=== PATIENT | male | born 1955 | race Caucasian/White ===

== ENCOUNTER 2016-11-06 15:07 | Emergency (ER) | payer MEDICARE ==
[2016-11-06] MEDS ORDERED: HYDROcod/ACETAM 5/325 MG TABLET PO STA (15:33)
[2016-11-06] MEDS ORDERED: HYDROcod/ACETAM 5/325 MG TABLET ONE (15:45)
[2016-11-06] MEDS ORDERED: DEXAMETHASONE 10 MG/ML VIAL IM STA (17:03)
[2016-11-06] MEDS ORDERED: DEXAMETHASONE 10 MG/ML VIAL ONE (17:05)
== END 2016-11-06 17:20 | disposition home or self-care (01) ==
DX: M79.631 Pain in right forearm (principal); M25.511 Pain in right shoulder; M25.562 Pain in left knee; I10 Essential (primary) hypertension; F17.200 Nicotine dependence, unspecified, uncomplicated; M10.9 Gout, unspecified
CPT/HCPCS: 36415; 80053; 83690; 84550; 85025; 85651; 86140; 86430; 96372; 99282; 99283; A9270

== ENCOUNTER 2017-01-24 11:32 | Outpatient (CLI) | payer MEDICARE | END 2017-01-24 11:33 | disposition home or self-care (01) | DX: K21.9 Gastro-esophageal reflux disease without esophagitis (principal); Z13.220 Encounter for screening for lipoid disorders; Z13.1 Encounter for screening for diabetes mellitus; M1A.00X1 Idiopathic chronic gout, unspecified site, with tophus (tophi) ==

== ENCOUNTER 2017-03-11 10:31 | Outpatient (CLI) | payer MEDICARE ==
--- NOTE | 2017-03-11 12:41 | XRAY Report ---
THREE VIEW RIGHT INDEX FINGER: 03/11/2017 CLINICAL INDICATION: Cyst. FINDINGS: AP, lateral, and oblique views of the right index finger demonstrate osteoarthritis, more severe at the distal interphalangeal joint. Soft tissue swelling on the dorsal aspect of the distal i nterphalangeal joint is associated with bulky osteophytes. No radiopaque foreign body is seen in the soft tissues. IMPRESSION: OSTEOARTHRITIS, WITH BULKY OSTEOPHYTES AT THE DISTAL INTERPHALANGEAL JOINT, WITH ASSOCIA SOSA SOFT TISSUE SWELLING. JOB #: [id number] EXT JOB #:[id number]
== END 2017-03-11 10:32 | disposition home or self-care (01) ==
LOC: DI.S 10:31
PROVIDERS: ATTEND Nurse Practitioner Family
DX: M19.041 Primary osteoarthritis, right hand (principal); M25.741 Osteophyte, right hand
CPT/HCPCS: 73140

== ENCOUNTER 2017-04-18 17:43 | Emergency (ER) | payer MEDICARE ==
[2017-04-18 17:53] VITALS: BP 137/82
--- NOTE | 2017-04-18 18:29 | XRAY Preliminary Report ---
Exam: XR Forearm RT IMPRESSION: 1. No acute fractures are seen. 2. Cystic bone lesions again noted at the right distal radius and ulna. Wrist osteoarthritis again no mazin with cystic changes of the carpal bones again seen. 3. Tiny radiopaque densities could be focal soft tissue calcification at the dorsal proximal forearm. Radiopaque foreign bodies not excluded. [facility] SITE ID: [id number]
--- NOTE | 2017-04-18 18:32 | XRAY Report ---
EXAM: RIGHT FOREARM RADIOGRAPHY EXAM DATE: 04/18/2017 06:08 PM. CLINICAL HISTORY: Injury, pain and swelling. Fall today, forearm pain. COMPARISON: Right wrist 08/30/2016. TECHNIQUE: 2 views. FINDINGS: Limited due to suboptimal positioning. Bones: Cystic bone lesions again noted at the right distal radius and ulna. No acute fractures are se en. Joints: Wrist osteoarthritis again noted with cystic changes of the carpal bones again seen. Soft Tissues: Tiny radiopaque densities could be focal soft tissue calcification at the dorsal proxim al forearm. IMPRESSION: 1. No acute fractures are seen. 2. Cystic bone lesions again noted at the right distal radius and ulna. Wrist osteoarthritis again no mazin with cystic changes of the carpal bones again seen. 3. Tiny radiopaque densities could be focal soft tissue calcification at the dorsal proximal forearm. Radiopaque foreign bodies not excluded. MILLY Referring Provider Line: [phone] SITE ID: [id number]
--- NOTE | 2017-04-18 20:15 | ED Physician Documentation ---
PD HPI UPPER EXT INJURY - Stated complaint Stated Complaint: R ARM INJ - Chief complaint Chief Complaint: Ext Problem - History obtained from History obtained from: Patient - History of Present Illness Location: Other (Right-handed gentleman with history of gout had a trip and fall last night and injured his forearm. He complains of pain from forearm to the wrist and severe swelling of the hand and cannot range either the wrist or the elbow. No other injuries. He declines pain medication.) Review of Systems Constitutional: denies: Fever, Chills GI: denies: Abdominal Pain, Nausea, Vomiting Musculoskeletal: denies: Neck pain, Back pain PD PAST MEDICAL HISTORY - Past Medical History Past Medical History: Yes Cardiovascular: None Respiratory: None Neuro: None Endocrine/Autoimmune: None GI: GERD : Other Musculoskeletal: Gout - Past Surgical History Past Surgical History: Yes Ortho: Spine surgery - Present Medications Home Medications: Ambulatory Orders Medication Instructions Recorded Confirmed Omeprazole [PriLOSEC] 20 mg PO DAILY 04/09/15 04/18/17 Naproxen 375 mg PO BID #20 tablet 08/30/16 04/18/17 HYDROcod/ACETAM 5/325 [Bishop 5/325] 1 - 2 ea PO Q6H PRN #15 tablet 11/06/16 - Allergies Allergies/Adverse Reactions: Allergies Allergy/AdvReac Type Severity Reaction Status Date / Time codeine [Codeine] Allergy Intermediate Rash Verified 04/18/17 19:18 Sulfa (Sulfonamide AdvReac Intermediate Emesis Verified 04/18/17 19:18 Antibiotics) - Social History Does the pt smoke?: No Smoking Status: Never smoker Does the pt drink ETOH?: No Does the pt have substance abuse?: No - Immunizations Immunizations are current?: Yes Immunizations: TDAP >10years/unknown - POLST Patient has POLST: No PD ED PE NORMAL - Vitals Vital signs reviewed: Yes - General General: Alert and oriented X 3, No acute distress - Neck Neck: Supple, no meningeal sign, No bony TTP - Extremities Extremities: Other (The elbow is tender over the proximal ulna, and he cannot straighten it. He has gouty tophi over the olecranon. The shoulder and humerus are nontender. He has significant pain over the dorsum of the wrist and distal radius, and a lot of swelling from the radius distally, he cannot range the wrist but can range the hand.) - Neuro Neuro: Alert and oriented X 3, Normal speech - Psych Psych: Normal mood, Normal affect Results - Vitals Vitals: Vital Signs - 24 hr 04/18/17 17:52 Temperature 36.5 C Heart Rate 95 Respiratory 18 Rate Blood Pressure 137/82 H O2 Saturation 99 Oxygen O2 Source Room air - Rads (name of study) R Forearm, wrist and elbow Xrays Radiology: EMP read contemporaneously (Stable lucent lesion in the distal radius consistent with bone cyst and a small elbow joint effusion without visible fracture.) Departure - Departure Disposition: Home, Self Care Clinical Impression: Bone cyst, Pain, joint, upper arm, left Wrist sprain Qualifiers: Encounter type: initial encounter Laterality: right Qualified Code(s): S63.501A - Unspecified sprain of right wrist, initial encounter Condition: Good Record reviewed to determine appropriate education?: Yes Instructions: ED Sprain Wrist Comments: Recheck with your physician in 1 week if not improving. Your blood pressure was elevated today on check into the emergency department. This does not mean that you have hypertension, it is a common phenomenon to come to the emergency department and have elevated blood pressure. I recommend that she see her primary care physician within the week to have it rechecked when you are feeling better.
--- NOTE | 2017-04-18 21:26 | XRAY Preliminary Report ---
Exam: XR Wrist 4 View RT IMPRESSION: 1. No right wrist fracture or subluxations. 2. Stable radial metaphyseal lucent lesion most likely representing a bone cyst or giant cell tumor. 3. Mild degenerative changes. [facility] SITE ID: [id number]
--- NOTE | 2017-04-18 21:28 | XRAY Preliminary Report ---
Exam: XR Elbow 3 View RT IMPRESSION: Small joint effusion. No evidence of fracture. [facility] SITE ID: [id number]
--- NOTE | 2017-04-18 21:28 | XRAY Report ---
EXAM: RIGHT WRIST RADIOGRAPHY EXAM DATE: 04/18/2017 08:54 PM. CLINICAL HISTORY: Wrist/elbow pain p fall. COMPARISON: 08/30/2016. TECHNIQUE: 4 views. FINDINGS: Bones: No fractures. Again seen is a well-defined, non-expansile lucency in the radial metaphysis wit h a thin sclerotic rim, unchanged in size and appearance. Joints: Mild degenerative changes involving the radiocarpal, triscaphe and first carpometacarpal join ts. Soft Tissues: Normal. No soft tissue swelling. IMPRESSION: 1. No right wrist fracture or subluxations. 2. Stable radial metaphyseal lucent lesion most likely representing a bone cyst or giant cell tumor. 3. Mild degenerative changes. [facility] Referring Provider Line: [phone] SITE ID: [id number]
--- NOTE | 2017-04-18 21:31 | XRAY Report ---
EXAM: RIGHT ELBOW RADIOGRAPHY EXAM DATE: 04/18/2017 08:54 PM. CLINICAL HISTORY: Wrist/elbow pain p fall. COMPARISON: None. TECHNIQUE: 3 views. FINDINGS: Bones: Normal. No fractures or bone lesions. Joints: Normal alignment. There is a small joint effusion. Soft Tissues: Normal. No soft tissue swelling. IMPRESSION: Small joint effusion. No evidence of fracture. [facility] Referring Provider Line: [phone] SITE ID: [id number]
[2017-04-18] MEDS ORDERED: HYDROcod/ACET 5/325 Prepack 6 PO STA (21:39)
[2017-04-18] MEDS ORDERED: HYDROcod/ACET 5/325 Prepack 6 PO ONE (21:48)
== END 2017-04-18 22:00 | disposition home or self-care (01) ==
LOC: ED 17:43
DX: S63.501A Unspecified sprain of right wrist, initial encounter (principal); W19.XXXA Unspecified fall, initial encounter; R03.0 Elevated blood-pressure reading, without diagnosis of hypertension; Z88.2 Allergy status to sulfonamides; Z88.5 Allergy status to narcotic agent
CPT/HCPCS: 99282; 99283

== ENCOUNTER 2017-04-26 05:45 | Day surgery (SDC) | payer MEDICARE ==
[2017-04-26] MEDS ORDERED: LACTATED RINGERS 1,000 ML IV ONE ×2 (06:35→08:19)
[2017-04-26] MEDS ORDERED: ceFAZolin 2 GM/50 ML 50 ML IV ONE (06:40)
[2017-04-26] MEDS ORDERED: fentaNYL 100 MCG/2 ML VIAL IVP ONE (07:55)
[2017-04-26] MEDS ORDERED: LIDOCAINE-PF 2% 10 ML AMP SUBQ ONE (07:55)
[2017-04-26] MEDS ORDERED: DEXAMETHASONE 4 MG/ML VIAL IVP ONE (07:55)
[2017-04-26] MEDS ORDERED: EPINEPHrine 1 MG/ML VIAL IVP ONE (07:55)
[2017-04-26] MEDS ORDERED: ONDANSETRON 4 MG/2 ML VIAL IVP ONE (07:55)
[2017-04-26] MEDS ORDERED: EPINEPHrine 1 MG/ML VIAL IM ONE (07:55)
[2017-04-26] MEDS ORDERED: MIDAZOLAM 2 MG/2 ML VIAL IVP ONE (07:55)
[2017-04-26] MEDS ORDERED: PROPOFOL 200 MG/20 ML VIAL IVP ONE (07:55)
[2017-04-26] MEDS ORDERED: ePHEDrine 50 MG/ML VIAL IVP ONE (07:55)
[2017-04-26] MEDS ORDERED: BUPIVACAINE 0.25% PF 30 ML VIAL SUBQ ONE (09:01)
[2017-04-26] MEDS ORDERED: HYDROcod/ACETAM 5/325 MG TABLET ONE (10:15)
[2017-04-26 10:27] VITALS: BP 153/100
--- NOTE | 2017-04-26 11:33 | OPERATIVE REPORT ---
DATE OF SURGERY: 04/26/2017 00:00:00 PREOPERATIVE DIAGNOSIS: Prominent gouty tophus of right elbow and gouty arthropathy of the right inde x distal interphalangeal joint. PROCEDURE: Excision of right elbow gouty tophus and right index finger DIP joint fusion. OPERATING SURGEON: Catia Addison MD. ANESTHESIA: Interscalene block and general, Blayne Hansen MD. INDICATIONS FOR SURGERY: The patient is a 61-year-old male with progressive cutaneous manifestations of gout with a gouty tophus of the right elbow that is bothersome to him. Additionally, he has destru ction of his index DIP joint due to a gouty collection and arthritis. He desires treatment of that co ndition because of chronic breakdown of the finger skin, draining gout crystals and the fact that he has pain of the joint. FINDINGS AT SURGERY: The patient's elbow showed a very large tophus with extensive gouty collection o f crystals in the tissue. The patient's fingers showed the same on the dorsum, extending down and wendy und the DIP joint, which did not have evident articular cartilage. There was some hypertrophy of spur s around that joint. DESCRIPTION OF OPERATIVE PROCEDURE: The patient was taken to the operating room and given a block fol lowed by a general anesthetic. The patient's initial procedure under tourniquet pressure was the righ t elbow where a curved incision was made around the elbow tophus and dissection taken through skin, c arefully dissecting around the gouty collection and removing it. The small rongeur was used to comple te the task of removal of small collections of gouty tophus. This area was irrigated and then closed with interrupted Vicryl suture and in the skin, interrupted Prolene suture with sterile dressings jacqueline lied. The index finger was approached with a Elodia Preston type incision creating wide flaps directly down to bone and excising a large gouty tophus overlying the DIP joint and excising the extensor ten don in that area and directly exposing the joint. Rongeur was used to debride the osteophytes around the joint, after which the articular surfaces were viewed and scraped with a curette. There was no ar ticular cartilage remaining. The surfaces were opposed and pinned into position and CR arm images con firmed an excellent position of the pinning, after which the Sally MPS screw was used by drilling an d then filling over the guide pin, an essentially compressive threaded screw, and this coapted the alford rfaces very well and gave excellent fixation, after which the guide pin was removed and the flaps wer e debrided slightly and closed with interrupted Nylon and sterile dressings applied. The patient had a finger tube gauze dressing applied and padding was placed up the elbow to apply a posterior arm spl int. He was taken to the recovery room in stable condition. ESTIMATED BLOOD LOSS: Minimal. COMPLICATIONS: None. SPONGE AND NEEDLE COUNT: Correct. JOB #: [id number] EXT JOB #:[id number]
== END 2017-04-26 05:46 | disposition home or self-care (01) ==
LOC: SDS 05:45
PROVIDERS: ATTEND Orthopaedic Surgery
PROC: 0JBG0ZZ Excision of Right Lower Arm Subcutaneous Tissue and Fascia, Open Approach (ICD-10-PCS; 2017-04-26)
PROC: 0RGW04Z Fusion of Right Finger Phalangeal Joint with Internal Fixation Device, Open Approach (ICD-10-PCS; principal; 2017-04-26 07:30)
DX: M1A.9XX1 Chronic gout, unspecified, with tophus (tophi) (principal); M25.741 Osteophyte, right hand
CPT/HCPCS: 24071; 26860; A9270; J0171; J0690; J7120

== ENCOUNTER 2017-05-25 16:37 | Outpatient (CLI) | payer MEDICARE | END 2017-05-25 16:38 | disposition EMS.NT | LOC: EMS 16:37 | PROVIDERS: ATTEND Surgery | DX: J70.5 Respiratory conditions due to smoke inhalation (principal) ==

== ENCOUNTER 2017-07-14 12:45 | Outpatient (CLI) | payer MEDICARE | END 2017-07-14 12:46 | disposition critical access hospital (66) | LOC: EMS 12:45 | PROVIDERS: ATTEND Surgery | DX: R19.7 Diarrhea, unspecified (principal); R05 Cough | CPT/HCPCS: A0425; A0427 ==

== ENCOUNTER 2017-07-14 13:02 | Inpatient (IN) | payer MEDICARE ==
[2017-07-14] MEDS ORDERED: SODIUM CHLORIDE 0.9% 1,000 ML IV ONE ×3 (13:14→23:16)
--- NOTE | 2017-07-14 13:17 | ED Physician Documentation ---
History of Present Illness - Stated complaint Stated Complaint: COUGHING/FEVER - Chief complaint Chief Complaint: Resp - History obtained from History obtained from: Patient, EMS - History of Present Illness Timing: Other (61-year-old gentleman with history of gout and polyarthralgia as well as chronic back pain presents with 3 days of productive cough, fever, dizziness, and feeling out of it. He is modestly short of breath. He had chills and sweats especially at night. No recent travel, but he was exposed to pneumonia by a neighbor.) Review of Systems Ten Systems: 10 systems reviewed and negative Constitutional: reports: Fever, Chills, Sweats Nose: denies: Rhinorrhea / runny nose, Congestion Cardiac: denies: Chest pain / pressure, Palpitations, Pedal edema, Calf pain PD PAST MEDICAL HISTORY - Past Medical History Cardiovascular: None Respiratory: None Neuro: None Endocrine/Autoimmune: None GI: GERD : Other HEENT: None Psych: None Musculoskeletal: Gout Derm: Other - Past Surgical History Past Surgical History: Yes General: Colonoscopy Ortho: Spine surgery Cardiovascular: Vascular surgery, Angioplasty - Present Medications Home Medications: Ambulatory Orders Medication Instructions Recorded Confirmed Omeprazole [PriLOSEC] 20 mg PO DAILY 04/09/15 04/26/17 HYDROcod/ACETAM 5/325 [Dupo 5/325] 1 - 2 ea PO Q6H PRN #15 tablet 04/18/17 Indomethacin 25 mg PO DAILY PRN 04/25/17 04/26/17 - Allergies Allergies/Adverse Reactions: Allergies Allergy/AdvReac Type Severity Reaction Status Date / Time codeine [Codeine] Allergy Intermediate Rash Verified 04/18/17 19:18 Sulfa (Sulfonamide AdvReac Intermediate Emesis Verified 04/18/17 19:18 Antibiotics) - Social History Does the pt smoke?: No Smoking Status: Never smoker Does the pt drink ETOH?: No Does the pt have substance abuse?: No - Immunizations Immunizations are current?: Yes Immunizations: TDAP >10years/unknown - POLST Patient has POLST: No PD ED PE NORMAL - Vitals Vital signs reviewed: Yes - General General: Alert and oriented X 3, No acute distress - HEENT HEENT: PERRL, EOMI - Neck Neck: Supple, no meningeal sign, No bony TTP - Cardiac Cardiac: RRR, No murmur - Respiratory Respiratory: No respiratory distress, Clear bilaterally - Abdomen Abdomen: Normal bowel sounds, Soft, Non tender - Derm Derm: Normal color, Warm and dry, No rash - Extremities Extremities: No deformity, No tenderness to palpate, Normal ROM s pain, No edema , No calf tenderness / cord - Neuro Neuro: Alert and oriented 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, 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, Normal speech, Other (NIHSS zero ) - Psych Psych: Normal mood, Normal affect Results - Vitals Vitals: Vital Signs - 24 hr 07/14/17 13:03 Temperature 36.1 C L Heart Rate 88 Respiratory 18 Rate Blood Pressure 101/69 O2 Saturation 97 Oxygen O2 Source Room air - EKG (time done) 1311 Rate: Rate (enter#) (90) Rhythm: NSR [place]: Normal Intervals: Normal [place] QRS: Normal Ischemia: Normal ST segments Computer interpretation: Agree with computer - Labs Labs: Laboratory Tests 07/14/17 07/14/17 07/14/17 13:23 13:23 13:23 WBC 24.5 H RBC 4.26 L Hgb 12.0 L Hct 35.8 L MCV 84.1 MCH 28.1 MCHC 33.4 RDW 15.2 H Plt Count 329 MPV 7.1 L Neut # 21.0 H Lymph # 2.1 [place] # 1.3 H Eos # 0.0 Baso # 0.1 Absolute Nucleated RBC 0.00 Nucleated RBC % 0.0 Manual Slide Review Indicated RBC Morph Micro Appear 1+ ANISOCYTOSIS Sodium 132 L Potassium 3.4 L Chloride 98 L Carbon Dioxide 22 Anion Gap 12.0 BUN 23 H Creatinine 1.3 H Estimated GFR (MDRD) 56 L Glucose 108 H Lactic Acid 2.2 Calcium 8.3 L Total Bilirubin 1.3 H AST 16 ALT 18 Alkaline Phosphatase 95 Total Protein 7.0 Albumin 2.8 L Globulin 4.2 Albumin/Globulin Ratio 0.7 L Lipase 30 - Rads (name of study) CXR Radiology: EMP read contemporaneously (RUL PNA) PD MEDICAL DECISION MAKING - ED course ED course: 61-year-old gentleman with hypotension (80/40 for EMS) and pneumonia, administered Rocephin and Zithromax after blood cultures. Spoke with Dr. uS for admission at 2:05 PM. Departure - Departure Disposition: 66 [facility] DC/Xfer Clinical Impression: Pneumonia Qualifiers: Pneumonia type: due to unspecified organism Laterality: right Lung location: upper lobe of lung Qualified Code(s): J18.1 - Lobar pneumonia, unspecified organism Sepsis Qualifiers: Sepsis type: sepsis due to unspecified organism Qualified Code(s): A41.9 - Sepsis, unspecified organism Condition: Serious
[2017-07-14 13:30] LABS: BASOPHILS # (AUTO) 0.1 10^3/uL (0.0-0.1); BASOPHILS % (AUTO) 0.3 %; EOSINOPHILS % (AUTO) 0.1 %; HCT - HEMATOCRIT 35.8 % (42.0-52.0); LYMPHOCYTES # (AUTO) 2.1 10^3/uL (1.5-3.5); LYMPHOCYTES % (AUTO) 8.7 %; MEAN CORPUSCULAR HEMOGLOBIN 28.1 pg (27.0-31.0); MEAN CORPUSCULAR HGB CONC 33.4 g/dL (32.0-36.0); MEAN CORPUSCULAR VOLUME 84.1 fL (80.0-94.0); MEAN PLATELET VOLUME 7.1 fL (7.4-11.4); MONOCYTES # (AUTO) 1.3 10^3/uL (0.0-1.0); MONOCYTES % (AUTO) 5.4 %; NEUTROPHILS % (AUTO) 85.5 %; RED BLOOD COUNT 4.26 10^6/uL (4.70-6.10); RED CELL DISTRIBUTION WIDTH 15.2 % (12.0-15.0); UNCORRECTED WHITE BLOOD COUNT 24.5 x10^3/uL; WHITE BLOOD COUNT 24.5 x10^3/uL (4.8-10.8)
[2017-07-14 13:41] LABS: ALBUMIN/GLOBULIN RATIO 0.7 (1.0-2.2); BILIRUBIN,TOTAL 1.3 mg/dL (0.2-1.0); CALCIUM 8.3 mg/dL (8.5-10.3); CREATININE 1.3 mg/dL (0.6-1.2); POTASSIUM 3.4 mmol/L (3.5-5.0)
[2017-07-14] MEDS ORDERED: OCTREOTIDE 500 MCG in SODIUM CHLORIDE 0.9% 100ML 95 ML IV STA (13:57)
[2017-07-14] MEDS ORDERED: cefTRIAXone 1 GM VIAL IVP STA (13:57)
[2017-07-14] MEDS ORDERED: PANTOPRAZOLE 80 MG in SODIUM CHLORIDE 0.9% 100ML 100 ML IV STA (13:57)
[2017-07-14] MEDS ORDERED: PANTOPRAZOLE 40 MG VIAL IVP STA (13:57)
--- NOTE | 2017-07-14 13:59 | XRAY Preliminary Report ---
Exam: XR CHEST 2 VIEW PA/LAT IMPRESSION: New right upper lobe consolidation consistent with pneumonia. [id number]
[2017-07-14] MEDS ORDERED: AZITHROMYCIN INJ 500 MG in SODIUM CHLORIDE 0.9% 250 ML IV STA (14:01)
[2017-07-14] MEDS ORDERED: cefTRIAXone 2 GM in SODIUM CHLORIDE 0.9% MINIBAG 100 ML IV STA (14:01)
--- NOTE | 2017-07-14 14:02 | XRAY Report ---
EXAM: CHEST RADIOGRAPHY EXAM DATE: 07/14/2017 01:41 PM. CLINICAL HISTORY: Cough. COMPARISON: 05/16/2008. TECHNIQUE: 2 views. FINDINGS: Lungs/Pleura: Positive for consolidative process in the right upper lobe which is new since the previ ous examination. The left lung is clear. No pleural effusion or pneumothorax. Mediastinum: Heart and mediastinal contours are unremarkable. Other: None. IMPRESSION: New right upper lobe consolidation consistent with pneumonia. [facility] Referring Provider Line: [phone] SITE ID: [id number]
[2017-07-14] MEDS ORDERED: cefTRIAXone 2 GM VIAL ONE (14:15)
[2017-07-14] MEDS ORDERED: SODIUM CHLORIDE FLUSH 0.9% 10 ML SYRINGE IVP ONE (14:17)
[2017-07-14] MEDS ORDERED: ZOLPIDEM 5 MG TABLET PO PRN (14:44)
[2017-07-14] MEDS ORDERED: ONDANSETRON 4 MG/2 ML VIAL IVP PRN (14:44)
[2017-07-14] MEDS ORDERED: PROCHLORPERAZINE 10 MG/2 ML VIAL IVP PRN (14:44)
[2017-07-14] MEDS ORDERED: KETOROLAC 30 MG/ML VIAL IVP PRN (15:00)
[2017-07-14] MEDS ORDERED: POTASSIUM CHLORIDE 20 MEQ TABLET PO STA (15:05)
[2017-07-14] MEDS ORDERED: MORPHINE 10 MG/ML VIAL IVP STA (15:11)
[2017-07-14 15:38] LABS: HCT - HEMATOCRIT 35.7 % (42.0-52.0); HGB - HEMOGLOBIN 11.7 g/dL (14.0-18.0)
[2017-07-14] MEDS ORDERED: MORPHINE 10 MG/ML VIAL ONE (15:38)
--- NOTE | 2017-07-14 15:53 | HISTORY & PHYSICAL EXAMINATION ---
Chief Complaint - Chief Complaint Chief Complaint: chill, fever and cough History of Present Illness - Admitted From Admitted From:: ER - History Obtained From History obtained from: pt - History of Present Illness HPI Comment/Other: This is a 61-year-old male with a past medical history significance for GERD, Gout and CAD, who present ER for evaluation of fever,chill, cough and night sweating. patient report in the recent three days he had fever, chill, sweating, cough with white thickening sputum. Patient state he was shaking when he stand, and feel chill. Patient is living on his own house, recently and with four children. Patient state he had " a bad diarrhea,like-watery." Patient denies GI bleeding, or dark stool but with "funny color, and a bad smell." patient denies cigarette smoking or alcoholic problem. But patient does report he smokes "crystal stuff." Patient report it is Methamphetamine. Patient denies IV drug but smoke with methamphetamine. Patient report he feel very bad today, he could not eat for 4 days, and feel very nausea but no vomiting. Patient denies chest pain, palpitation, shortness of breath, abdominal pain, dysuria, hematuria, GI bleeding, vision changing. CXR reveals upper right pneumonia. lab test reveals significant elevated WBC 24.5, and elevated BUN and Creatinine comparing with the previous. Patient is admitted for evaluation and treatment of pneumonia now. History - Past Medical History Cardiovascular: reports: None Respiratory: reports: None Neuro: reports: None Endocrine/Autoimmune: reports: None GI: reports: GERD : reports: Other HEENT: reports: None Psych: reports: None Musculoskeletal: reports: Gout Derm: reports: Other MRSA Hx?: Yes - Past Surgical History General: reports: Colonoscopy Ortho: reports: Spine surgery Cardiovascular: reports: Vascular surgery, Angioplasty - Family & Social History Family History Comment/Other: pt is living alone and recently , pt has four children. Living arrangement: At home Living Situation: With family - Substance History Use: Uses substance without health or social issues: Amphetamine Abuse: Recurrent use of substance despite neg consequences: Amphetamine - POLST Patient has POLST: No POLST Status: Full Code Meds/Allgy - Home Medications Home Medications: Ambulatory Orders Medication Instructions Recorded Confirmed Omeprazole [PriLOSEC] 20 mg PO DAILY 04/09/15 07/15/17 Indomethacin 25 mg PO DAILY PRN 04/25/17 07/15/17 - Allergies Allergies/Adverse Reactions: Allergies Allergy/AdvReac Type Severity Reaction Status Date / Time codeine [Codeine] Allergy Intermediate Rash Verified 04/18/17 19:18 Sulfa (Sulfonamide AdvReac Intermediate Emesis Verified 04/18/17 19:18 Antibiotics) Review of Systems - Constitutional Constitutional: reports: Fatigue, Fever, Chills, Weakness, Poor appetite, Diaphoresis, Night sweats. denies: Malaise, Weight gain, Weight loss - Eyes Eyes: denies: Pain, Irritation, Amaurosis, Blurred vision, Spots in vision, Field loss, Vision loss, Dipolpia - Ears, Nose & Throat Ears, Nose & Throat: denies: Ear pain, Hearing loss, Hearing aids, Tinnitus, Vertigo, Nasal pain, Nasal discharge, Nosebleeds, Sore throat, Bleeding gums - Cardiovascular Cariovascular: denies: Irregular heart rate, Palpitations, Chest pain, Edema, Lightheadedness, Syncope, Exertional dyspnea, Decr. exercise tolerance - Respiratory Respiratory: reports: Cough, Sputum production. denies: Wheezing, Snoring, Hemoptysis, Orthopnea, SOB at rest, SOB with exertion - Gastrointestinal Gastrointestinal: reports: Diarrhea, Nausea, Poor appetite. denies: Abdominal pain, Abdominal distention, Constipation, Change in bowel habits, Rectal bleeding, Black stools, Bloody stools, Vomiting, Lui blood emesis, Coffee grounds emesis - Genitourinary Genitourinary: denies: Dysuria, Frequency, Urgency, Hematuria, Incontinence, Flank pain, Nocturia - Musculoskeletal Musculoskeletal: denies: Muscle pain, Back pain, Muscle aches, Stiffness, Limited range of motion, Muscle weakness, Gout, Joint pain, Joint swelling - Integumentary Integumentary: denies: Rash, Pruritis, Lesions, Dryness, Acne, Pigment changes - Neurological Neurological: denies: General weakness, Focal weakness, Headache, Dizziness, Numbness, Pre-existing deficit, Abnormal gait, Seizures, Incoordination, Slurred speech - Psychiatric Psychiatric: denies: Depression, Anxiety, Suicidal, Delusions, Hallucinations, Homicidal - Endocrine Endocrine: denies: Polyuria, Polydypsia, Polyphagia, Intolerance to cold, Intolerance to heat - Hematologic/Lymphatic Hematologic/Lymphatic: denies: Anemia, Bruising, Petechiae, Lymphadenopathy, Bleeding tendencies, Recurrent infections Exam - Vital Signs Reviewed Vital Signs: Yes - Physical Exam General Appearance: positive: No acute distress, Alert. negative: Lethargic Eyes Bilateral: positive: Normal inspection, PERRL, EOMI, No lid inflammation, Conjunctivae nml ENT: positive: ENT inspection nml, Pharynx nml, No signs of dehydration. negative: Purulent nasal drainage, Pharyngeal erythema, Oral lesions Neck: positive: Nml inspection, Thyroid nml, No JVD, Trachea midline. negative : Thyromegaly, Lymphadenopathy (R), Lymphadenopathy (L), Stiff neck, Carotid bruit, Swelling/bruising, Tracheal deviation Respiratory: positive: Chest non-tender, No respiratory distress, Other ( diminished lung sound at right side of lung). negative: Wheezes, Rales, Rhonchi Cardiovascular: positive: Regular rate & rhythm, No murmur, No gallop Peripheral Pulses: positive: 2+ Abdomen: positive: Non-tender, No organomegaly, Nml bowel sounds, No distention. negative: Tenderness, Guarding, Rebound Back: positive: Nml inspection. negative: CVA tenderness (R), CVA tenderness (L ) Skin: positive: Color nml, No rash, Warm, Dry. negative: Cyanosis, Diaphoresis , Pallor, Skin rash Extremities: positive: Non-tender, Full ROM, Nml appearance. negative: Pedal edema, Calf tenderness, [place]'s sign/cords Neurologic/Psychiatric: positive: Oriented x3, Motor nml, Sensation nml, Mood/ affect nml. negative: Sensory loss, Facial droop, Slurred/abnml speech, Depressed mood/affect Conclusion/Plan - Problem List (1) Pneumonia Conclusion/Plan: pt is from home, smoked Methamphetamine, CXR reveal right pneumonia, and with fever, chill, sweating at home antibiotics continue lactic acid test blood and sputum culture, follow up the test result IVF NS vital monitor Qualifiers: Pneumonia type: due to unspecified organism Laterality: right Lung location: upper lobe of lung Qualified Code(s): J18.1 - Lobar pneumonia, unspecified organism (2) Illicit drug use Conclusion/Plan: UDS test positive for methamphetamine/amphetamine, and pt state he smoked it. advise and consult for pt. pt state he will quit (3) GERD (gastroesophageal reflux disease) Conclusion/Plan: stable, on PEPCID (4) Gout Conclusion/Plan: stable, no flare, resume home meds (5) Hx of coronary artery disease Conclusion/Plan: hx of cardiac angioplasty stable, monitor with vital, tele (6) DVT prophylaxis Conclusion/Plan: SCD and Lovenox - Lab Results Fish Bones: 07/15/17 05:36 07/15/17 05:36 Issues/Core Measures - Anticipated LOS Anticipated Stay Length: 2 or more midnights (expected more than 2 nights)
[2017-07-14] MEDS: SODIUM CHLORIDE 0.9% 1,000 ML IV SCH (17:28)
[2017-07-14] MEDS: SODIUM CHLORIDE FLUSH 0.9% 10 ML SYRINGE IVP SCH (20:06)
[2017-07-14 23:40] LABS: BASOPHILS % (AUTO) 0.2 %; EOSINOPHILS % (AUTO) 0.5 %; HCT - HEMATOCRIT 34.6 % (42.0-52.0); HGB - HEMOGLOBIN 11.4 g/dL (14.0-18.0); LYMPHOCYTES % (AUTO) 11.9 %; MEAN CORPUSCULAR HEMOGLOBIN 28.1 pg (27.0-31.0); MEAN CORPUSCULAR HGB CONC 32.9 g/dL (32.0-36.0); MEAN CORPUSCULAR VOLUME 85.6 fL (80.0-94.0); MEAN PLATELET VOLUME 7.4 fL (7.4-11.4); MONOCYTES % (AUTO) 5.4 %; RED BLOOD COUNT 4.04 10^6/uL (4.70-6.10); UNCORRECTED WHITE BLOOD COUNT 22.1 x10^3/uL; WHITE BLOOD COUNT 22.1 x10^3/uL (4.8-10.8)
[2017-07-14] MEDS ORDERED: IMIPENEM/CILASTATIN 500 MG in SODIUM CHLORIDE 0.9% MINIBAG 100 ML IV SCH (23:45)
[2017-07-14] MEDS ORDERED: VANCOMYCIN INJ 2 GM in SODIUM CHLORIDE 0.9% 500 ML IV SCH (23:45)
[2017-07-14 23:49] LABS: CALCIUM 8.4 mg/dL (8.5-10.3); MAGNESIUM 1.6 mg/dL (1.7-2.8); POTASSIUM 3.6 mmol/L (3.5-5.0)
[2017-07-15 00:01] LABS: BAND NEUTROPHILS % (MANUAL) 17 %; EOSINOPHILS % (MANUAL) 1 %; LYMPHOCYTES % (MANUAL) 11 %; NEUTROPHILS % (MANUAL) 67 %; TOTAL CELLS COUNTED 100
[2017-07-15 00:02] LABS: NP AUTO DIFFERENTIAL? YES; NP MAN DIFFERENTIAL? NO; PLATELET ESTIMATE, MANUAL NORMAL (130-450,000) (NORMAL)
[2017-07-15] MEDS ORDERED: VANCOMYCIN PER PHARMACY IV SCH (00:15)
[2017-07-15] MEDS ORDERED: SODIUM CHLORIDE 0.9% IV SCH (00:15)
--- NOTE | 2017-07-15 00:17 | XRAY Preliminary Report ---
Exam: XR CHEST 1 VIEW IMPRESSION: No significant interval change in right upper lobe airspace disease. [facility] SITE ID: [id number]
--- NOTE | 2017-07-15 00:20 | XRAY Report ---
EXAM: CHEST RADIOGRAPHY EXAM DATE: 07/14/2017 11:56 PM. CLINICAL HISTORY: Hypotension, F/U pneumonia. COMPARISON: 07/14/2017 chest x-ray. TECHNIQUE: 1 view. FINDINGS: Lungs/Pleura: The left lung is clear. Again seen is right upper lobe airspace consolidation. No pleur al effusion or pneumothorax. Mediastinum: Within exam limitations, the cardiomediastinal contour is normal. Other: None. IMPRESSION: No significant interval change in right upper lobe airspace disease. [facility] Referring Provider Line: [phone] SITE ID: [id number]
[2017-07-15] MEDS ORDERED: MAGNESIUM SULFATE 2 GRAM 2 GM/50 ML BAG IV ONE (00:35)
[2017-07-15] MEDS: IMIPENEM/CILASTATIN 500 MG in SODIUM CHLORIDE 0.9% MINIBAG 100 ML IV SCH ×2 (00:40→06:37)
--- NOTE | 2017-07-15 00:41 | PROVIDER PROGRESS NOTE ---
Concessionist Note - Concessionist Note Concessionist Note: Pt's BP dropped to 89/50 at 10:40 pm on 07/14/17. I reviewed chart and examined Pt. He is somnolent (just got Tramadol), arouses and has no c/o pain. He is diaphoretic, no fever, recycle BP 92/50, HR 80. Chest diminished R breath sounds. Heart without murmur. EKG: NSR, WNL. CXR: no change from previous w/ RUL consolidation Labs show improving Lctic acid level and WBC, Mg 1.6. Imp: Poss septic shock, Pneumonia, Low Mg, Drug use (?iv drugs) Plan: IV saline bolus of 1L, than continue NS at 125 cc/hr Due to Hx of drug use, will change Zithromax and Rocephin to Vancomycin and Imipenam Replace Mg.
[2017-07-15] MEDS: SODIUM CHLORIDE FLUSH 0.9% 10 ML SYRINGE IVP PRN ×3 (01:02→02:04)
[2017-07-15] MEDS ORDERED: VANCOMYCIN INJ 0.75 GM in SODIUM CHLORIDE 0.9% 250 ML IV SCH (01:30)
[2017-07-15] MEDS: SODIUM CHLORIDE 0.9% 1,000 ML IV SCH ×2 (04:14→12:57)
[2017-07-15 05:43] LABS: BASOPHILS % (AUTO) 0.3 %; EOSINOPHILS % (AUTO) 0.8 %; HCT - HEMATOCRIT 34.7 % (42.0-52.0); HGB - HEMOGLOBIN 11.2 g/dL (14.0-18.0); LYMPHOCYTES % (AUTO) 12.4 %; MEAN CORPUSCULAR HEMOGLOBIN 27.6 pg (27.0-31.0); MEAN CORPUSCULAR HGB CONC 32.2 g/dL (32.0-36.0); MEAN CORPUSCULAR VOLUME 85.7 fL (80.0-94.0); MEAN PLATELET VOLUME 7.3 fL (7.4-11.4); MONOCYTES % (AUTO) 5.7 %; NEUTROPHILS % (AUTO) 80.8 %; RED BLOOD COUNT 4.05 10^6/uL (4.70-6.10); RED CELL DISTRIBUTION WIDTH 15.3 % (12.0-15.0); UNCORRECTED WHITE BLOOD COUNT 20.3 x10^3/uL; WHITE BLOOD COUNT 20.3 x10^3/uL (4.8-10.8)
[2017-07-15] MEDS: SODIUM CHLORIDE FLUSH 0.9% 10 ML SYRINGE IVP SCH ×2 (05:48→14:11)
[2017-07-15 05:57] LABS: ALBUMIN/GLOBULIN RATIO 0.6 (1.0-2.2); BILIRUBIN,TOTAL 0.6 mg/dL (0.2-1.0); CALCIUM 8.3 mg/dL (8.5-10.3); CREATININE 0.9 mg/dL (0.6-1.2); MAGNESIUM 1.9 mg/dL (1.7-2.8); POTASSIUM 4.2 mmol/L (3.5-5.0)
[2017-07-15 06:01] LABS: BAND NEUTROPHILS % (MANUAL) 11 %; EOSINOPHILS % (MANUAL) 2 %; LYMPHOCYTES % (MANUAL) 11 %; NEUTROPHILS % (MANUAL) 73 %; NP AUTO DIFFERENTIAL? YES; NP MAN DIFFERENTIAL? NO; PLATELET ESTIMATE, MANUAL NORMAL (130-450,000) (NORMAL); TOTAL CELLS COUNTED 100
[2017-07-15] MEDS: POLYETHYLENE GLYCOL 3350 17 GM PACKET PO SCH (08:25)
[2017-07-15] MEDS: ENOXAPARIN 40 MG/0.4 ML SYRINGE SUBQ SCH (08:25)
[2017-07-15] MEDS: FAMOTIDINE 20 MG TABLET PO SCH (08:25)
[2017-07-15] MEDS ORDERED: AZITHROMYCIN INJ 500 MG in SODIUM CHLORIDE 0.9% 250 ML IV SCH (09:00)
[2017-07-15] MEDS ORDERED: cefTRIAXone 1 GM in SODIUM CHLORIDE 0.9% 100ML 100 ML IV SCH (09:00)
[2017-07-15] MEDS ORDERED: cefTRIAXone 1 GM VIAL IVP SCH (09:00)
[2017-07-15] MEDS: CEFEPIME 1 GM in SODIUM CHLORIDE 0.9% MINIBAG 100 ML IV SCH ×3 (10:21→22:05)
--- NOTE | 2017-07-15 13:06 | PROVIDER PROGRESS NOTE ---
Subjective - Prog Note Date Prog Note Date: 07/15/17 - Subjective Pt reports feeling: Improved Subjective: pt state he feel better than yesterday. No pain or other complaints Current Medications - Current Medications Current Medications: Active Medications Acetaminophen (Tylenol) 650 mg PO Q4HR PRN PRN Reason: Pain 1 to 4 Enoxaparin Sodium (Lovenox) 40 mg SUBQ DAILY [facility] Last Admin: 07/15/17 08:25 Dose: 40 mg Famotidine (Pepcid) 20 mg PO DAILY [facility] Last Admin: 07/15/17 08:25 Dose: 20 mg Sodium Chloride (Normal Saline 0.9%) 1,000 mls @ 125 mls/hr IV .Q8H [facility] Last Admin: 07/15/17 12:57 Dose: 125 mls/hr Vancomycin HCl 1 gm/ Sodium (Chloride) 250 mls @ 167 mls/hr IV Q12H [facility] Cefepime HCl 1 gm/ Sodium (Chloride) 100 mls @ 200 mls/hr IV TID [facility] Last Infusion: 07/15/17 11:02 Dose: Infused Ketorolac Tromethamine (Toradol Inj) 15 mg IVP Q6HR PRN PRN Reason: PAIN Stop: 07/19/17 14:59 Last Admin: 07/14/17 20:06 Dose: 15 mg Ondansetron HCl (Zofran Inj) 4 mg IVP Q6HR PRN PRN Reason: Nausea / Vomiting Polyethylene Glycol (Miralax) 17 gm PO DAILY [facility] Last Admin: 07/15/17 08:25 Dose: 17 gm Prochlorperazine Edisylate (Compazine Inj) 10 mg IVP Q6HR PRN PRN Reason: Nausea / Vomiting Sodium Chloride (Normal Saline Flush 0.9%) 10 ml IVP PRN PRN PRN Reason: NEEDED PER PROVIDER ORDERS Last Admin: 07/15/17 02:04 Dose: 10 ml Sodium Chloride (Normal Saline Flush 0.9%) 10 ml IVP Q8HR [facility] Last Admin: 07/15/17 05:48 Dose: Not Given Zolpidem Tartrate (Ambien) 5 mg PO QPM PRN PRN Reason: Insomnia Omeprazole [PriLOSEC] 20 mg PO DAILY 04/09/15 Indomethacin 25 mg PO DAILY PRN 07/24/17 Objective - Vital Signs/Intake & Output Reviewed Vital Signs: Yes Vital Signs: Vital Signs x48h Temp Pulse Resp BP Pulse Ox 07/15/17 10:00 88 17 144/86 H 98 07/15/17 08:00 36.7 C 88 16 126/83 H 100 Intake & Output: Intake & Output 07/12/17 07/13/17 07/14/17 07/15/17 23:59 23:59 23:59 23:59 Intake Total 3758.75 3211.250 Output Total 400 550 Balance 3358.75 2661.250 - Objective General Appearance: positive: No acute distress, Alert. negative: Lethargic Eyes Bilateral: positive: Normal inspection, PERRL, EOMI, No lid inflammation, Conjunctivae nml ENT: positive: ENT inspection nml, Pharynx nml, No signs of dehydration. negative: Purulent nasal drainage, Pharyngeal erythema, Oral lesions Neck: positive: Nml inspection, Thyroid nml, Trachea midline. negative: Thyromegaly, Lymphadenopathy (R), Lymphadenopathy (L), Stiff neck, Carotid bruit , Swelling/bruising, Tracheal deviation Respiratory: positive: Chest non-tender, No respiratory distress, Other ( diminished lung sound at right middle and upper lobes). negative: Wheezes, Rales, Rhonchi Cardiovascular: positive: Regular rate & rhythm, No murmur, No gallop. negative : Irregularly irregular, Extrasystoles, Tachycardia, Bradycardia Peripheral Pulses: 2+ Radial (R), 2+ Radial (L), 2+ Dorsalis pedis (R), 2+ Dorsalis pedis (L) Abdomen: positive: Non-tender, Nml bowel sounds, No distention. negative: Tenderness, Guarding, Rebound Back: positive: Nml inspection. negative: CVA tenderness (R), CVA tenderness (L ) Skin: positive: Color nml, No rash, Warm, Dry. negative: Cyanosis, Diaphoresis , Pallor, Skin rash Extremities: positive: Non-tender, Full ROM, Nml appearance. negative: Pedal edema, Calf tenderness, [place]'s sign/cords Neurologic/Psychiatric: positive: Oriented x3, Motor nml, Sensation nml, Mood/ affect nml. negative: Sensory loss, Facial droop, Slurred/abnml speech, Depressed mood/affect - Lab Results Fish Bones: 07/15/17 05:36 07/15/17 05:36 Other Labs: Lab Results x24hrs 07/15/17 07/15/17 07/15/17 Range/Units 05:36 05:36 05:36 WBC 20.3 H (4.8-10.8) x10^3/uL RBC 4.05 L (4.70-6.10) 10^6/uL Hgb 11.2 L (14.0-18.0) g/dL Hct 34.7 L (42.0-52.0) % MCV 85.7 (80.0-94.0) fL MCH 27.6 (27.0-31.0) pg MCHC 32.2 (32.0-36.0) g/dL RDW 15.3 H (12.0-15.0) % Plt Count 310 (130-450) 10^3/uL MPV 7.3 L (7.4-11.4) fL Neut # Not Reportable Lymph # Not Reportable [place] # Not Reportable Eos # Not Reportable Baso # Not Reportable Absolute Nucleated RBC Not Reportable Total Counted 100 Band Neuts % (Manual) 11 H (0 - 10) % Nucleated RBC % Not Reportable Neutrophils # (Manual) 17.1 H (1.5-6.6) 10^3/uL Lymphocytes # (Manual) 2.2 (1.5-3.5) 10^3/uL Monocytes # (Manual) 0.6 (0.0-1.0) 10^3/uL Eosinophils # (Manual) 0.4 (0-0.7) 10^3/uL Differential Comment MANUAL DIFFERENTIAL Platelet Estimate NORMAL (130-450,000) (NORMAL) RBC Morph Micro Appear NORMAL APPEARANCE (NORMAL) Sodium 138 (135-145) mmol/L Potassium 4.2 (3.5-5.0) mmol/L Chloride 106 (101-111) mmol/L Carbon Dioxide 23 (21-32) mmol/L Anion Gap 9.0 (6-13) BUN 18 (6-20) mg/dL Creatinine 0.9 (0.6-1.2) mg/dL Estimated GFR (MDRD) 86 L (>89) Glucose 99 (70-100) mg/dL Lactic Acid 1.5 (0.5-2.2) mmol/L Calcium 8.3 L (8.5-10.3) mg/dL Magnesium 1.9 (1.7-2.8) mg/dL Total Bilirubin 0.6 (0.2-1.0) mg/dL AST 12 (10-42) IU/L ALT 15 (10-60) IU/L Alkaline Phosphatase 77 (42-121) IU/L Total Protein 6.0 L (6.7-8.2) g/dL Albumin 2.3 L (3.2-5.5) g/dL Globulin 3.7 (2.1-4.2) g/dL Albumin/Globulin Ratio 0.6 L (1.0-2.2) Urine Opiates Screen (NEGATIVE) Ur Oxycodone Screen (NEGATIVE) Urine Methadone Screen (NEGATIVE) Ur Propoxyphene Screen (NEGATIVE) Ur Barbiturates Screen (NEGATIVE) Ur Tricyclics Screen (NEGATIVE) Ur Phencyclidine Scrn (NEGATIVE) Ur Amphetamine Screen (NEGATIVE) U Methamphetamines Scrn (NEGATIVE) U Benzodiazepines Scrn (NEGATIVE) Urine Cocaine Screen (NEGATIVE) U Cannabinoids Screen (NEGATIVE) 07/14/17 07/14/17 07/14/17 Range/Units 23:34 23:30 23:30 WBC 22.1 H (4.8-10.8) x10^3/uL RBC 4.04 L (4.70-6.10) 10^6/uL Hgb 11.4 L (14.0-18.0) g/dL Hct 34.6 L (42.0-52.0) % MCV 85.6 (80.0-94.0) fL MCH 28.1 (27.0-31.0) pg MCHC 32.9 (32.0-36.0) g/dL RDW 15.0 (12.0-15.0) % Plt Count 320 (130-450) 10^3/uL MPV 7.4 (7.4-11.4) fL Neut # Not Reportable Lymph # Not Reportable [place] # Not Reportable Eos # Not Reportable Baso # Not Reportable Absolute Nucleated RBC Not Reportable Total Counted 100 Band Neuts % (Manual) 17 H (0 - 10) % Nucleated RBC % Not Reportable Neutrophils # (Manual) 18.6 H (1.5-6.6) 10^3/uL Lymphocytes # (Manual) 2.4 (1.5-3.5) 10^3/uL Monocytes # (Manual) 0.9 (0.0-1.0) 10^3/uL Eosinophils # (Manual) 0.2 (0-0.7) 10^3/uL Differential Comment MANUAL DIFFERENTIAL Platelet Estimate NORMAL (130-450,000) (NORMAL) RBC Morph Micro Appear NORMAL APPEARANCE (NORMAL) Sodium 136 (135-145) mmol/L Potassium 3.6 (3.5-5.0) mmol/L Chloride 102 (101-111) mmol/L Carbon Dioxide 22 (21-32) mmol/L Anion Gap 12.0 (6-13) BUN 17 (6-20) mg/dL Creatinine 1.0 (0.6-1.2) mg/dL Estimated GFR (MDRD) 76 L (>89) Glucose 126 H (70-100) mg/dL Lactic Acid 1.3 (0.5-2.2) mmol/L Calcium 8.4 L (8.5-10.3) mg/dL Magnesium 1.6 L (1.7-2.8) mg/dL Total Bilirubin (0.2-1.0) mg/dL AST (10-42) IU/L ALT (10-60) IU/L Alkaline Phosphatase (42-121) IU/L Total Protein (6.7-8.2) g/dL Albumin (3.2-5.5) g/dL Globulin (2.1-4.2) g/dL Albumin/Globulin Ratio (1.0-2.2) Urine Opiates Screen (NEGATIVE) Ur Oxycodone Screen (NEGATIVE) Urine Methadone Screen (NEGATIVE) Ur Propoxyphene Screen (NEGATIVE) Ur Barbiturates Screen (NEGATIVE) Ur Tricyclics Screen (NEGATIVE) Ur Phencyclidine Scrn (NEGATIVE) Ur Amphetamine Screen (NEGATIVE) U Methamphetamines Scrn (NEGATIVE) U Benzodiazepines Scrn (NEGATIVE) Urine Cocaine Screen (NEGATIVE) U Cannabinoids Screen (NEGATIVE) 07/14/17 07/14/17 Range/Units 17:35 15:32 WBC (4.8-10.8) x10^3/uL RBC (4.70-6.10) 10^6/uL Hgb 11.7 L (14.0-18.0) g/dL Hct 35.7 L (42.0-52.0) % MCV (80.0-94.0) fL MCH (27.0-31.0) pg MCHC (32.0-36.0) g/dL RDW (12.0-15.0) % Plt Count (130-450) 10^3/uL MPV (7.4-11.4) fL Neut # Lymph # [place] # Eos # Baso # Absolute Nucleated RBC Total Counted Band Neuts % (Manual) (0 - 10) % Nucleated RBC % Neutrophils # (Manual) (1.5-6.6) 10^3/uL Lymphocytes # (Manual) (1.5-3.5) 10^3/uL Monocytes # (Manual) (0.0-1.0) 10^3/uL Eosinophils # (Manual) (0-0.7) 10^3/uL Differential Comment Platelet Estimate (NORMAL) RBC Morph Micro Appear (NORMAL) Sodium (135-145) mmol/L Potassium (3.5-5.0) mmol/L Chloride (101-111) mmol/L Carbon Dioxide (21-32) mmol/L Anion Gap (6-13) BUN (6-20) mg/dL Creatinine (0.6-1.2) mg/dL Estimated GFR (MDRD) (>89) Glucose (70-100) mg/dL Lactic Acid (0.5-2.2) mmol/L Calcium (8.5-10.3) mg/dL Magnesium (1.7-2.8) mg/dL Total Bilirubin (0.2-1.0) mg/dL AST (10-42) IU/L ALT (10-60) IU/L Alkaline Phosphatase (42-121) IU/L Total Protein (6.7-8.2) g/dL Albumin (3.2-5.5) g/dL Globulin (2.1-4.2) g/dL Albumin/Globulin Ratio (1.0-2.2) Urine Opiates Screen POSITIVE H (NEGATIVE) Ur Oxycodone Screen NEGATIVE (NEGATIVE) Urine Methadone Screen NEGATIVE (NEGATIVE) Ur Propoxyphene Screen NEGATIVE (NEGATIVE) Ur Barbiturates Screen NEGATIVE (NEGATIVE) Ur Tricyclics Screen NEGATIVE (NEGATIVE) Ur Phencyclidine Scrn NEGATIVE (NEGATIVE) Ur Amphetamine Screen POSITIVE H (NEGATIVE) U Methamphetamines Scrn POSITIVE H (NEGATIVE) U Benzodiazepines Scrn NEGATIVE (NEGATIVE) Urine Cocaine Screen NEGATIVE (NEGATIVE) U Cannabinoids Screen NEGATIVE (NEGATIVE) Assessment/Plan - Problem List (1) Pneumonia Impression: (1) Pneumonia Conclusion/Plan: Preliminary blood culture reviewed, positive for Streptococcus pneumonia. will follow final and sensitive study, and sputum culture switch antibiotics to Cefepime and Vancomycin vital monitor continue IVF NS pt is from home, smoked Methamphetamine, CXR reveal right pneumonia, and with fever, chill, sweating at home antibiotics continue lactic acid test blood and sputum culture, follow up the test result IVF NS vital monitor Qualifiers: Pneumonia type: due to unspecified organism Laterality: right Lung location: upper lobe of lung Qualified Code(s): J18.1 - Lobar pneumonia, unspecified organism (2) Illicit drug use Conclusion/Plan: UDS test positive for methamphetamine/amphetamine, and pt state he smoked it. advise and consult for pt. pt state he will quit (3) GERD (gastroesophageal reflux disease) Conclusion/Plan: stable, on PEPCID (4) Gout Conclusion/Plan: stable, no flare, resume home meds (5) Hx of coronary artery disease Conclusion/Plan: hx of cardiac angioplasty stable, monitor with vital, tele (6) hypotensive possible Sepsis, or illicit drug withdrawal. Lactic acid is low at the time, HR is normal arrange, no fever in the hospital course. IV NS bolus was done, pt's BP return normal and keep in the WNL, repeat lactic acid continue IVF NS, continue antibiotics continue vital closely monitor Qualifiers: Pneumonia type: due to unspecified organism Laterality: right Lung location: upper lobe of lung Qualified Code(s): J18.1 - Lobar pneumonia, unspecified organism
[2017-07-15] MEDS: VANCOMYCIN INJ 1 GM in SODIUM CHLORIDE 0.9% 250 ML IV SCH (14:46)
[2017-07-15] MEDS: ALPRAZolam 0.25 MG TABLET PO PRN (16:59)
[2017-07-16] MEDS: SODIUM CHLORIDE 0.9% 1,000 ML IV SCH ×3 (00:29→21:23)
[2017-07-16] MEDS: VANCOMYCIN INJ 1 GM in SODIUM CHLORIDE 0.9% 250 ML IV SCH ×3 (01:36→23:32)
[2017-07-16] MEDS: CEFEPIME 1 GM in SODIUM CHLORIDE 0.9% MINIBAG 100 ML IV SCH ×3 (05:30→21:23)
[2017-07-16] MEDS: SODIUM CHLORIDE FLUSH 0.9% 10 ML SYRINGE IVP SCH ×4 (05:32→23:41)
[2017-07-16 06:09] LABS: BASOPHILS % (AUTO) 0.6 %; EOSINOPHILS % (AUTO) 1.2 %; HCT - HEMATOCRIT 33.9 % (42.0-52.0); HGB - HEMOGLOBIN 11.1 g/dL (14.0-18.0); LYMPHOCYTES % (AUTO) 15.5 %; MEAN CORPUSCULAR HEMOGLOBIN 28.1 pg (27.0-31.0); MEAN CORPUSCULAR HGB CONC 32.8 g/dL (32.0-36.0); MEAN CORPUSCULAR VOLUME 85.4 fL (80.0-94.0); MEAN PLATELET VOLUME 8.1 fL (7.4-11.4); NEUTROPHILS % (AUTO) 76.7 %; RED BLOOD COUNT 3.97 10^6/uL (4.70-6.10); RED CELL DISTRIBUTION WIDTH 15.4 % (12.0-15.0); UNCORRECTED WHITE BLOOD COUNT 14.6 x10^3/uL; WHITE BLOOD COUNT 14.6 x10^3/uL (4.8-10.8)
[2017-07-16 06:31] LABS: ALBUMIN/GLOBULIN RATIO 0.6 (1.0-2.2); BILIRUBIN,TOTAL 0.5 mg/dL (0.2-1.0); CALCIUM 8.6 mg/dL (8.5-10.3); CREATININE 0.8 mg/dL (0.6-1.2); POTASSIUM 3.4 mmol/L (3.5-5.0); TOTAL PROTEIN 6.5 g/dL (6.7-8.2)
[2017-07-16 07:11] LABS: BAND NEUTROPHILS % (MANUAL) 9 %; EOSINOPHILS % (MANUAL) 2 %; LYMPHOCYTES % (MANUAL) 20 %; NEUTROPHILS % (MANUAL) 58 %; NP AUTO DIFFERENTIAL? YES; NP MAN DIFFERENTIAL? NO; PLATELET ESTIMATE, MANUAL NORMAL (130-450,000) (NORMAL); TOTAL CELLS COUNTED 100
[2017-07-16] MEDS ORDERED: POTASSIUM CHLORIDE 20 MEQ TABLET PO ONE (08:15)
[2017-07-16] MEDS: POLYETHYLENE GLYCOL 3350 17 GM PACKET PO SCH (08:48)
[2017-07-16] MEDS: ENOXAPARIN 40 MG/0.4 ML SYRINGE SUBQ SCH (09:42)
[2017-07-16] MEDS: FAMOTIDINE 20 MG TABLET PO SCH (09:42)
[2017-07-16] MEDS: ALPRAZolam 0.25 MG TABLET PO PRN (09:42)
--- NOTE | 2017-07-16 14:07 | PROVIDER PROGRESS NOTE ---
Subjective - Prog Note Date Prog Note Date: 07/16/17 - Subjective Pt reports feeling: Improved Subjective: pt report he is doing very good. No fever, chill, chest pain, SOB reported. Current Medications - Current Medications Current Medications: Active Medications Acetaminophen (Tylenol) 650 mg PO Q4HR PRN PRN Reason: Pain 1 to 4 Alprazolam (Xanax) 0.25 mg PO Q6HR PRN PRN Reason: Anxiety Last Admin: 07/16/17 09:42 Dose: 0.25 mg Enoxaparin Sodium (Lovenox) 40 mg SUBQ DAILY [facility] Last Admin: 07/16/17 09:42 Dose: 40 mg Famotidine (Pepcid) 20 mg PO DAILY [facility] Last Admin: 07/16/17 09:42 Dose: 20 mg Sodium Chloride (Normal Saline 0.9%) 1,000 mls @ 125 mls/hr IV .Q8H [facility] Last Infusion: 07/16/17 13:09 Dose: 0 mls/hr Vancomycin HCl 1 gm/ Sodium (Chloride) 250 mls @ 167 mls/hr IV Q12H [facility] Last Infusion: 07/16/17 03:18 Dose: Infused Cefepime HCl 1 gm/ Sodium (Chloride) 100 mls @ 200 mls/hr IV TID [facility] Last Admin: 07/16/17 13:09 Dose: 200 mls/hr Ketorolac Tromethamine (Toradol Inj) 15 mg IVP Q6HR PRN PRN Reason: PAIN Stop: 07/19/17 14:59 Last Admin: 07/14/17 20:06 Dose: 15 mg Ondansetron HCl (Zofran Inj) 4 mg IVP Q6HR PRN PRN Reason: Nausea / Vomiting Polyethylene Glycol (Miralax) 17 gm PO DAILY [facility] Last Admin: 07/16/17 08:48 Dose: Not Given Prochlorperazine Edisylate (Compazine Inj) 10 mg IVP Q6HR PRN PRN Reason: Nausea / Vomiting Sodium Chloride (Normal Saline Flush 0.9%) 10 ml IVP PRN PRN PRN Reason: NEEDED PER PROVIDER ORDERS Last Admin: 07/15/17 02:04 Dose: 10 ml Sodium Chloride (Normal Saline Flush 0.9%) 10 ml IVP Q8HR [facility] Last Admin: 07/16/17 13:09 Dose: 10 ml Zolpidem Tartrate (Ambien) 5 mg PO QPM PRN PRN Reason: Insomnia Omeprazole [PriLOSEC] 20 mg PO DAILY 04/09/15 Indomethacin 25 mg PO DAILY PRN 04/25/17 Objective - Vital Signs/Intake & Output Reviewed Vital Signs: Yes Vital Signs: Vital Signs x48h Temp Pulse Resp BP BP Pulse Ox 07/16/17 12:00 36.7 C 96 18 152/88 H 99 07/16/17 08:38 37.5 C 89 20 140/83 H 95 Intake & Output: Intake & Output 07/13/17 07/14/17 07/15/17 07/16/17 23:59 23:59 23:59 23:59 Intake Total 3758.75 5651.250 2530.833 Output Total 400 2400 3900 Balance 3358.75 3251.250 -1369.167 - Objective General Appearance: positive: No acute distress, Alert. negative: Lethargic Eyes Bilateral: positive: Normal inspection, PERRL, EOMI. negative: No lid inflammation, Conjunctivae nml ENT: positive: ENT inspection nml, Pharynx nml, No signs of dehydration. negative: Purulent nasal drainage, Pharyngeal erythema, Oral lesions Neck: positive: Nml inspection, Thyroid nml, Trachea midline. negative: Thyromegaly, Lymphadenopathy (R), Lymphadenopathy (L), Stiff neck, Carotid bruit , Swelling/bruising, Tracheal deviation Respiratory: positive: Chest non-tender, No respiratory distress, Breath sounds nml. negative: Wheezes, Rales, Rhonchi Cardiovascular: positive: Regular rate & rhythm, No murmur, No gallop. negative : Irregularly irregular, Extrasystoles, Tachycardia, Bradycardia, Systolic murmur, Diastolic murmur Peripheral Pulses: 2+ Radial (R), 2+ Radial (L), 2+ Dorsalis pedis (R), 2+ Dorsalis pedis (L) Abdomen: positive: Non-tender, Nml bowel sounds, No distention. negative: Tenderness, Guarding, Rebound Back: positive: Nml inspection. negative: CVA tenderness (R), CVA tenderness (L ) Skin: positive: Color nml, No rash, Warm, Dry. negative: Cyanosis, Diaphoresis , Pallor, Skin rash Extremities: positive: Non-tender, Full ROM, Nml appearance. negative: Pedal edema, Calf tenderness, Joint swelling, [place]'s sign/cords Neurologic/Psychiatric: positive: Oriented x3, Motor nml, Sensation nml, Mood/ affect nml. negative: Sensory loss, Facial droop, Slurred/abnml speech, Depressed mood/affect - Lab Results Fish Bones: 07/16/17 05:00 07/16/17 05:00 Other Labs: Lab Results x24hrs 07/16/17 07/16/17 Range/Units 05:00 05:00 WBC 14.6 H (4.8-10.8) x10^3/uL RBC 3.97 L (4.70-6.10) 10^6/uL Hgb 11.1 L (14.0-18.0) g/dL Hct 33.9 L (42.0-52.0) % MCV 85.4 (80.0-94.0) fL MCH 28.1 (27.0-31.0) pg MCHC 32.8 (32.0-36.0) g/dL RDW 15.4 H (12.0-15.0) % Plt Count 333 (130-450) 10^3/uL MPV 8.1 (7.4-11.4) fL Neut # Not Reportable Lymph # Not Reportable [place] # Not Reportable Eos # Not Reportable Baso # Not Reportable Absolute Nucleated RBC Not Reportable Total Counted 100 Band Neuts % (Manual) 9 (0 - 10) % Nucleated RBC % Not Reportable Neutrophils # (Manual) 9.8 H (1.5-6.6) 10^3/uL Lymphocytes # (Manual) 2.9 (1.5-3.5) 10^3/uL Monocytes # (Manual) 1.6 H (0.0-1.0) 10^3/uL Eosinophils # (Manual) 0.3 (0-0.7) 10^3/uL Differential Comment MANUAL DIFFERENTIAL Platelet Estimate NORMAL (130-450,000) (NORMAL) RBC Morph Micro Appear NORMAL APPEARANCE (NORMAL) Sodium 139 (135-145) mmol/L Potassium 3.4 L (3.5-5.0) mmol/L Chloride 104 (101-111) mmol/L Carbon Dioxide 23 (21-32) mmol/L Anion Gap 12.0 (6-13) BUN 10 (6-20) mg/dL Creatinine 0.8 (0.6-1.2) mg/dL Estimated GFR (MDRD) 98 (>89) Glucose 113 H (70-100) mg/dL Calcium 8.6 (8.5-10.3) mg/dL Total Bilirubin 0.5 (0.2-1.0) mg/dL AST 15 (10-42) IU/L ALT 13 (10-60) IU/L Alkaline Phosphatase 114 (42-121) IU/L Total Protein 6.5 L (6.7-8.2) g/dL Albumin 2.4 L (3.2-5.5) g/dL Globulin 4.1 (2.1-4.2) g/dL Albumin/Globulin Ratio 0.6 L (1.0-2.2) Assessment/Plan - Problem List (1) Pneumonia Impression: (1) Pneumonia Conclusion/Plan: Preliminary blood culture reviewed, positive for Streptococcus pneumonia. The second preliminary tube culture result reviewed, and sensitive study reviewed. WBC from 24.5 down to 14.6 today continue current treatment continue IVF will follow final and sensitive study, and sputum culture switch antibiotics to Cefepime and Vancomycin vital monitor continue IVF NS pt is from home, smoked Methamphetamine, CXR reveal right pneumonia, and with fever, chill, sweating at home antibiotics continue lactic acid test blood and sputum culture, follow up the test result IVF NS vital monitor Qualifiers: Pneumonia type: due to unspecified organism Laterality: right Lung location: upper lobe of lung Qualified Code(s): J18.1 - Lobar pneumonia, unspecified organism (2) Illicit drug use Conclusion/Plan: consult and advise pt quit the illicit drug, pt state he will. UDS test positive for methamphetamine/amphetamine, and pt state he smoked it. advise and consult for pt. pt state he will quit (3) GERD (gastroesophageal reflux disease) Conclusion/Plan: stable, stable, on PEPCID (4) Gout Conclusion/Plan: stable, no flare, resume home meds (5) Hx of coronary artery disease stable, Qualifiers: Pneumonia type: due to unspecified organism Laterality: right Lung location: upper lobe of lung Qualified Code(s): J18.1 - Lobar pneumonia, unspecified organism
[2017-07-16] MEDS: ACETAMINOPHEN 325 MG TABLET PO PRN (21:24)
[2017-07-17 05:03] LABS: BASOPHILS % (AUTO) 0.3 %; EOSINOPHILS # (AUTO) 0.1 10^3/uL (0.0-0.7); HCT - HEMATOCRIT 34.2 % (42.0-52.0); HGB - HEMOGLOBIN 11.2 g/dL (14.0-18.0); LYMPHOCYTES # (AUTO) 2.2 10^3/uL (1.5-3.5); LYMPHOCYTES % (AUTO) 16.6 %; MEAN CORPUSCULAR HEMOGLOBIN 27.8 pg (27.0-31.0); MEAN CORPUSCULAR HGB CONC 32.7 g/dL (32.0-36.0); MEAN CORPUSCULAR VOLUME 84.8 fL (80.0-94.0); MEAN PLATELET VOLUME 7.2 fL (7.4-11.4); MONOCYTES # (AUTO) 1.1 10^3/uL (0.0-1.0); MONOCYTES % (AUTO) 8.4 %; NEUTROPHILS # (AUTO) 9.8 10^3/uL (1.5-6.6); NEUTROPHILS % (AUTO) 73.7 %; RED BLOOD COUNT 4.04 10^6/uL (4.70-6.10); RED CELL DISTRIBUTION WIDTH 15.3 % (12.0-15.0); UNCORRECTED WHITE BLOOD COUNT 13.3 x10^3/uL; WHITE BLOOD COUNT 13.3 x10^3/uL (4.8-10.8)
[2017-07-17 05:14] LABS: ALBUMIN/GLOBULIN RATIO 0.6 (1.0-2.2); BILIRUBIN,TOTAL 0.5 mg/dL (0.2-1.0); CALCIUM 8.3 mg/dL (8.5-10.3); CREATININE 0.7 mg/dL (0.6-1.2); POTASSIUM 3.2 mmol/L (3.5-5.0); TOTAL PROTEIN 6.3 g/dL (6.7-8.2)
[2017-07-17] MEDS: CEFEPIME 1 GM in SODIUM CHLORIDE 0.9% MINIBAG 100 ML IV SCH ×3 (05:44→22:47)
[2017-07-17] MEDS: SODIUM CHLORIDE FLUSH 0.9% 10 ML SYRINGE IVP SCH ×3 (06:25→22:47)
[2017-07-17] MEDS ORDERED: POTASSIUM CHLORIDE 20 MEQ TABLET PO ONE (08:00)
[2017-07-17] MEDS: POTASSIUM CHLOR 10 MEQ/100 ML 10 MEQ/100 ML BAG IV SCH ×2 (08:01→10:50)
[2017-07-17] MEDS ORDERED: INDOMETHACIN 25 MG CAPSULE PO PRN (08:24)
[2017-07-17] MEDS: ENOXAPARIN 40 MG/0.4 ML SYRINGE SUBQ SCH (09:05)
[2017-07-17] MEDS: FAMOTIDINE 20 MG TABLET PO SCH (09:05)
[2017-07-17] MEDS: VANCOMYCIN INJ 1 GM in SODIUM CHLORIDE 0.9% 250 ML IV SCH ×3 (09:06→23:45)
[2017-07-17] MEDS: POLYETHYLENE GLYCOL 3350 17 GM PACKET PO SCH (10:42)
[2017-07-17] MEDS: SODIUM CHLORIDE FLUSH 0.9% 10 ML SYRINGE IVP PRN (14:22)
--- NOTE | 2017-07-17 17:14 | PROVIDER PROGRESS NOTE ---
Subjective - Prog Note Date Prog Note Date: 07/17/17 - Subjective Pt reports feeling: Improved Subjective: pt state he feel better. pt state he still has some cough. No fever, chill, stable BP, room air with SO2 97%. Current Medications - Current Medications Current Medications: Active Medications Acetaminophen (Tylenol) 650 mg PO Q4HR PRN PRN Reason: Pain 1 to 4 Last Admin: 07/16/17 21:24 Dose: 650 mg Alprazolam (Xanax) 0.25 mg PO Q6HR PRN PRN Reason: Anxiety Last Admin: 07/16/17 09:42 Dose: 0.25 mg Enoxaparin Sodium (Lovenox) 40 mg SUBQ DAILY [facility] Last Admin: 07/17/17 09:05 Dose: 40 mg Famotidine (Pepcid) 20 mg PO DAILY [facility] Last Admin: 07/17/17 09:05 Dose: 20 mg Cefepime HCl 1 gm/ Sodium (Chloride) 100 mls @ 200 mls/hr IV TID [facility] Last Infusion: 07/17/17 15:14 Dose: Infused Vancomycin HCl 1 gm/ Sodium (Chloride) 250 mls @ 167 mls/hr IV Q8H [facility] Last Admin: 07/17/17 15:27 Dose: 167 mls/hr Indomethacin (Indocin) 25 mg PO DAILY PRN PRN Reason: Joint Pain Last Admin: 07/17/17 09:06 Dose: 25 mg Ondansetron HCl (Zofran Inj) 4 mg IVP Q6HR PRN PRN Reason: Nausea / Vomiting Polyethylene Glycol (Miralax) 17 gm PO DAILY [facility] Last Admin: 07/17/17 10:42 Dose: Not Given Prochlorperazine Edisylate (Compazine Inj) 10 mg IVP Q6HR PRN PRN Reason: Nausea / Vomiting Sodium Chloride (Normal Saline Flush 0.9%) 10 ml IVP PRN PRN PRN Reason: NEEDED PER PROVIDER ORDERS Last Admin: 07/17/17 14:22 Dose: 10 ml Sodium Chloride (Normal Saline Flush 0.9%) 10 ml IVP Q8HR [facility] Last Admin: 07/17/17 14:22 Dose: 10 ml Zolpidem Tartrate (Ambien) 5 mg PO QPM PRN PRN Reason: Insomnia Omeprazole [PriLOSEC] 20 mg PO DAILY 04/09/15 Indomethacin 25 mg PO DAILY PRN 04/25/17 Objective - Vital Signs/Intake & Output Reviewed Vital Signs: Yes Vital Signs: Vital Signs x48h Temp Pulse Resp BP Pulse Ox 07/17/17 15:58 37.2 C 86 16 127/75 97 07/17/17 11:50 37.2 C 93 16 138/79 H 94 Intake & Output: Intake & Output 07/14/17 07/15/17 07/16/17 07/17/17 23:59 23:59 23:59 23:59 Intake Total 3758.75 5651.250 4261.250 3240 Output Total 400 2400 4200 2875 Balance 3358.75 3251.250 61.250 365 - Objective General Appearance: positive: No acute distress, Alert. negative: Lethargic Eyes Bilateral: positive: Normal inspection, PERRL, EOMI, No lid inflammation, Conjunctivae nml ENT: positive: ENT inspection nml, Pharynx nml, No signs of dehydration. negative: Purulent nasal drainage, Pharyngeal erythema, Oral lesions Neck: positive: Nml inspection, Thyroid nml, No JVD, Trachea midline. negative : Thyromegaly, Lymphadenopathy (R), Lymphadenopathy (L), Stiff neck, Carotid bruit, Swelling/bruising, Tracheal deviation Respiratory: positive: Chest non-tender, No respiratory distress, Breath sounds nml, Other Cardiovascular: positive: Regular rate & rhythm, No murmur, No gallop. negative : Irregularly irregular, Extrasystoles, Tachycardia, Bradycardia, Systolic murmur, Diastolic murmur Peripheral Pulses: 2+ Radial (R), 2+ Radial (L), 2+ Dorsalis pedis (R), 2+ Dorsalis pedis (L) Abdomen: positive: Non-tender, No organomegaly, Nml bowel sounds, No distention. negative: Tenderness, Guarding, Rebound Back: positive: Nml inspection. negative: CVA tenderness (R), CVA tenderness (L ) Skin: positive: Color nml, No rash, Warm, Dry. negative: Cyanosis, Diaphoresis , Pallor, Skin rash Extremities: positive: Non-tender, Full ROM, Nml appearance. negative: Pedal edema, Calf tenderness, Joint swelling, Cleveland's sign/cords Neurologic/Psychiatric: positive: Oriented x3, Motor nml, Sensation nml, Mood/ affect nml. negative: Sensory loss, Facial droop, Slurred/abnml speech, Depressed mood/affect - Lab Results Fish Bones: 07/17/17 04:28 07/17/17 04:28 Other Labs: Lab Results x24hrs 07/17/17 07/17/17 Range/Units 04:28 04:28 WBC 13.3 H (4.8-10.8) x10^3/uL RBC 4.04 L (4.70-6.10) 10^6/uL Hgb 11.2 L (14.0-18.0) g/dL Hct 34.2 L (42.0-52.0) % MCV 84.8 (80.0-94.0) fL MCH 27.8 (27.0-31.0) pg MCHC 32.7 (32.0-36.0) g/dL RDW 15.3 H (12.0-15.0) % Plt Count 411 (130-450) 10^3/uL MPV 7.2 L (7.4-11.4) fL Neut # 9.8 H (1.5-6.6) 10^3/uL Lymph # 2.2 (1.5-3.5) 10^3/uL [place] # 1.1 H (0.0-1.0) 10^3/uL Eos # 0.1 (0.0-0.7) 10^3/uL Baso # 0.0 (0.0-0.1) 10^3/uL Absolute Nucleated RBC 0.00 x10^3/uL Nucleated RBC % 0.0 /100WBC Sodium 136 (135-145) mmol/L Potassium 3.2 L (3.5-5.0) mmol/L Chloride 103 (101-111) mmol/L Carbon Dioxide 22 (21-32) mmol/L Anion Gap 11.0 (6-13) BUN 8 (6-20) mg/dL Creatinine 0.7 (0.6-1.2) mg/dL Estimated GFR (MDRD) 114 (>89) Glucose 130 H (70-100) mg/dL Calcium 8.3 L (8.5-10.3) mg/dL Total Bilirubin 0.5 (0.2-1.0) mg/dL AST 17 (10-42) IU/L ALT 16 (10-60) IU/L Alkaline Phosphatase 88 (42-121) IU/L Total Protein 6.3 L (6.7-8.2) g/dL Albumin 2.3 L (3.2-5.5) g/dL Globulin 4.0 (2.1-4.2) g/dL Albumin/Globulin Ratio 0.6 L (1.0-2.2) Assessment/Plan - Problem List (1) Pneumonia Impression: (1) Pneumonia Conclusion/Plan: great improved. no fever, chill, room air with 97% O2. stable BP. pt still report some cough, WBC is 13.3 continue current treatment daily lab, vital monitor Preliminary blood culture reviewed, positive for Streptococcus pneumonia. The second preliminary tube culture result reviewed, and sensitive study reviewed. WBC from 24.5 down to 14.6 today continue current treatment continue IVF will follow final and sensitive study, and sputum culture switch antibiotics to Cefepime and Vancomycin vital monitor continue IVF NS pt is from home, smoked Methamphetamine, CXR reveal right pneumonia, and with fever, chill, sweating at home antibiotics continue lactic acid test blood and sputum culture, follow up the test result IVF NS vital monitor Qualifiers: Pneumonia type: due to unspecified organism Laterality: right Lung location: upper lobe of lung Qualified Code(s): J18.1 - Lobar pneumonia, unspecified organism (2) Illicit drug use Conclusion/Plan: consult and advise pt quit the illicit drug, pt state he will. UDS test positive for methamphetamine/amphetamine, and pt state he smoked it. advise and consult for pt. pt state he will quit (3) GERD (gastroesophageal reflux disease) Conclusion/Plan: stable, stable, on PEPCID (4) Gout Conclusion/Plan: resume home meds stable, no flare, resume home meds (5) Hx of coronary artery disease stable, vital, tele monitor pt (6) hypokalemia K3.2 replace of potassium daily lab test monitor Qualifiers: Pneumonia type: due to unspecified organism Laterality: right Lung location: upper lobe of lung Qualified Code(s): J18.1 - Lobar pneumonia, unspecified organism
[2017-07-17] MEDS: diphenhydrAMINE INJ 50 MG/ML VIAL IVP PRN (22:47)
[2017-07-18 05:23] LABS: BASOPHILS # (AUTO) 0.1 10^3/uL (0.0-0.1); BASOPHILS % (AUTO) 0.7 %; EOSINOPHILS # (AUTO) 0.2 10^3/uL (0.0-0.7); EOSINOPHILS % (AUTO) 1.4 %; HCT - HEMATOCRIT 33.2 % (42.0-52.0); HGB - HEMOGLOBIN 10.8 g/dL (14.0-18.0); LYMPHOCYTES # (AUTO) 2.3 10^3/uL (1.5-3.5); LYMPHOCYTES % (AUTO) 16.4 %; MEAN CORPUSCULAR HEMOGLOBIN 27.6 pg (27.0-31.0); MEAN CORPUSCULAR HGB CONC 32.7 g/dL (32.0-36.0); MEAN CORPUSCULAR VOLUME 84.5 fL (80.0-94.0); MEAN PLATELET VOLUME 7.1 fL (7.4-11.4); MONOCYTES # (AUTO) 1.1 10^3/uL (0.0-1.0); NEUTROPHILS # (AUTO) 10.4 10^3/uL (1.5-6.6); NEUTROPHILS % (AUTO) 73.5 %; RED BLOOD COUNT 3.93 10^6/uL (4.70-6.10); RED CELL DISTRIBUTION WIDTH 14.9 % (12.0-15.0); UNCORRECTED WHITE BLOOD COUNT 14.2 x10^3/uL; WHITE BLOOD COUNT 14.2 x10^3/uL (4.8-10.8)
[2017-07-18 05:33] LABS: ALBUMIN/GLOBULIN RATIO 0.6 (1.0-2.2); BILIRUBIN,TOTAL 0.7 mg/dL (0.2-1.0); CALCIUM 8.4 mg/dL (8.5-10.3); CREATININE 0.7 mg/dL (0.6-1.2); POTASSIUM 3.9 mmol/L (3.5-5.0); TOTAL PROTEIN 6.3 g/dL (6.7-8.2)
[2017-07-18] MEDS: CEFEPIME 1 GM in SODIUM CHLORIDE 0.9% MINIBAG 100 ML IV SCH ×3 (06:07→23:48)
[2017-07-18] MEDS: SODIUM CHLORIDE FLUSH 0.9% 10 ML SYRINGE IVP SCH ×3 (06:07→20:30)
--- NOTE | 2017-07-18 08:29 | PROVIDER PROGRESS NOTE ---
Subjective - Prog Note Date Prog Note Date: 07/18/17 - Subjective Pt reports feeling: Improved Subjective: pt state he feel better, but still has some cough. Current Medications - Current Medications Current Medications: Active Medications Acetaminophen (Tylenol) 650 mg PO Q4HR PRN PRN Reason: Pain 1 to 4 Last Admin: 07/16/17 21:24 Dose: 650 mg Alprazolam (Xanax) 0.25 mg PO Q6HR PRN PRN Reason: Anxiety Last Admin: 07/16/17 09:42 Dose: 0.25 mg Diphenhydramine HCl (Benadryl Inj) 25 mg IVP Q6H PRN PRN Reason: Allergy Symptoms Last Admin: 07/17/17 22:47 Dose: 25 mg Enoxaparin Sodium (Lovenox) 40 mg SUBQ DAILY [facility] Last Admin: 07/17/17 09:05 Dose: 40 mg Famotidine (Pepcid) 20 mg PO DAILY [facility] Last Admin: 07/17/17 09:05 Dose: 20 mg Guaifenesin (Mucinex) 600 mg PO BID [facility] Cefepime HCl 1 gm/ Sodium (Chloride) 100 mls @ 200 mls/hr IV TID [facility] Last Infusion: 07/18/17 06:37 Dose: Infused Vancomycin HCl 1 gm/ Sodium (Chloride) 250 mls @ 167 mls/hr IV Q8H [facility] Last Infusion: 07/18/17 01:20 Dose: Infused Indomethacin (Indocin) 25 mg PO DAILY PRN PRN Reason: Joint Pain Last Admin: 07/17/17 09:06 Dose: 25 mg Ondansetron HCl (Zofran Inj) 4 mg IVP Q6HR PRN PRN Reason: Nausea / Vomiting Polyethylene Glycol (Miralax) 17 gm PO DAILY [facility] Last Admin: 07/17/17 10:42 Dose: Not Given Prochlorperazine Edisylate (Compazine Inj) 10 mg IVP Q6HR PRN PRN Reason: Nausea / Vomiting Sodium Chloride (Normal Saline Flush 0.9%) 10 ml IVP PRN PRN PRN Reason: NEEDED PER PROVIDER ORDERS Last Admin: 07/17/17 14:22 Dose: 10 ml Sodium Chloride (Normal Saline Flush 0.9%) 10 ml IVP Q8HR [facility] Last Admin: 07/18/17 06:07 Dose: 10 ml Zolpidem Tartrate (Ambien) 5 mg PO QPM PRN PRN Reason: Insomnia Omeprazole [PriLOSEC] 20 mg PO DAILY 04/09/15 Indomethacin 25 mg PO DAILY PRN 04/25/17 Objective - Vital Signs/Intake & Output Reviewed Vital Signs: Yes Vital Signs: Vital Signs x48h Temp Pulse Resp BP Pulse Ox 07/18/17 07:30 37.4 C 86 16 128/81 H 94 07/18/17 04:45 37.3 C 80 16 124/69 96 Intake & Output: Intake & Output 07/15/17 07/16/17 07/17/17 07/18/17 23:59 23:59 23:59 23:59 Intake Total 5651.250 4261.250 3950 950 Output Total 2400 4200 3125 1150 Balance 3251.250 61.250 825 -200 - Objective General Appearance: positive: No acute distress, Alert. negative: Lethargic Eyes Bilateral: positive: Normal inspection, PERRL, EOMI, No lid inflammation, Conjunctivae nml ENT: positive: ENT inspection nml, Pharynx nml, No signs of dehydration. negative: Purulent nasal drainage, Pharyngeal erythema, Oral lesions Neck: positive: Nml inspection, Thyroid nml, Trachea midline. negative: Thyromegaly, Lymphadenopathy (R), Lymphadenopathy (L), Stiff neck, Carotid bruit , Swelling/bruising, Tracheal deviation Respiratory: positive: Chest non-tender, No respiratory distress, Wheezes, Rales , Rhonchi, Other (still has cracker sound) Cardiovascular: positive: Regular rate & rhythm, No murmur, No gallop. negative : Irregularly irregular, Extrasystoles, Tachycardia, Bradycardia, Systolic murmur, Diastolic murmur Peripheral Pulses: 2+ Radial (R), 2+ Radial (L), 2+ Dorsalis pedis (R), 2+ Dorsalis pedis (L) Abdomen: positive: Non-tender, Nml bowel sounds, No distention. negative: Tenderness, Guarding, Rebound, Abnml bowel sounds Back: positive: Nml inspection. negative: CVA tenderness (R), CVA tenderness (L ) Skin: positive: Color nml, No rash, Warm, Dry. negative: Cyanosis, Diaphoresis , Pallor, Skin rash Extremities: positive: Non-tender, Full ROM, Nml appearance. negative: Calf tenderness, Joint swelling, Cleveland's sign/cords Neurologic/Psychiatric: positive: Oriented x3, Motor nml, Sensation nml, Mood/ affect nml. negative: Sensory loss, Facial droop, Slurred/abnml speech, Depressed mood/affect - Lab Results Fish Bones: 07/18/17 04:40 07/18/17 04:40 Other Labs: Lab Results x24hrs 07/18/17 07/18/17 07/18/17 Range/Units 07:22 04:40 04:40 WBC 14.2 H (4.8-10.8) x10^3/uL RBC 3.93 L (4.70-6.10) 10^6/uL Hgb 10.8 L (14.0-18.0) g/dL Hct 33.2 L (42.0-52.0) % MCV 84.5 (80.0-94.0) fL MCH 27.6 (27.0-31.0) pg MCHC 32.7 (32.0-36.0) g/dL RDW 14.9 (12.0-15.0) % Plt Count 430 (130-450) 10^3/uL MPV 7.1 L (7.4-11.4) fL Neut # 10.4 H (1.5-6.6) 10^3/uL Lymph # 2.3 (1.5-3.5) 10^3/uL [place] # 1.1 H (0.0-1.0) 10^3/uL Eos # 0.2 (0.0-0.7) 10^3/uL Baso # 0.1 (0.0-0.1) 10^3/uL Absolute Nucleated RBC 0.00 x10^3/uL Nucleated RBC % 0.0 /100WBC Sodium 138 (135-145) mmol/L Potassium 3.9 (3.5-5.0) mmol/L Chloride 103 (101-111) mmol/L Carbon Dioxide 24 (21-32) mmol/L Anion Gap 11.0 (6-13) BUN 11 (6-20) mg/dL Creatinine 0.7 (0.6-1.2) mg/dL Estimated GFR (MDRD) 114 (>89) Glucose 111 H (70-100) mg/dL Calcium 8.4 L (8.5-10.3) mg/dL Total Bilirubin 0.7 (0.2-1.0) mg/dL AST 14 (10-42) IU/L ALT 14 (10-60) IU/L Alkaline Phosphatase 79 (42-121) IU/L Total Protein 6.3 L (6.7-8.2) g/dL Albumin 2.4 L (3.2-5.5) g/dL Globulin 3.9 (2.1-4.2) g/dL Albumin/Globulin Ratio 0.6 L (1.0-2.2) Last Dose Date 07/17/2017 Last Dose Time 00:00 Vancomycin Trough 20.2 H (5.0-15.0) ug/mL Assessment/Plan - Problem List (1) Pneumonia Impression: (1) Pneumonia Conclusion/Plan: pt still has cough, slight elevated temperature, slight elevated WBC, and pt is with blood culture positive for Streptococcus pneumonia and staphylococcus Aureus. Pt is on Cefepime and Vancomycin, both are sensitive to the above bacterial per sensitive study. because pt has current and hx of illicit drug use, to R/O endocarditis to do ECHO due to consistent cough, and hx and current of smoking, CT of chest to R/O Neoplasm follow up the test, adjust meds as needed continue current treatment add Mucinex and Duoneb great improved. no fever, chill, room air with 97% O2. stable BP. pt still report some cough, WBC is 13.3 continue current treatment daily lab, vital monitor Preliminary blood culture reviewed, positive for Streptococcus pneumonia. The second preliminary tube culture result reviewed, and sensitive study reviewed. WBC from 24.5 down to 14.6 today continue current treatment continue IVF will follow final and sensitive study, and sputum culture switch antibiotics to Cefepime and Vancomycin vital monitor continue IVF NS pt is from home, smoked Methamphetamine, CXR reveal right pneumonia, and with fever, chill, sweating at home antibiotics continue lactic acid test blood and sputum culture, follow up the test result IVF NS vital monitor Qualifiers: Pneumonia type: due to unspecified organism Laterality: right Lung location: upper lobe of lung Qualified Code(s): J18.1 - Lobar pneumonia, unspecified organism (2) consistent cough Mucinex Duoneb CT of chest to R/O neoplasm, pt is with hx of smoking of Methamphetamine/ amphetamine suptum culture (3) Illicit drug use Conclusion/Plan: consult and advise pt quit the illicit drug, pt state he will. UDS test positive for methamphetamine/amphetamine, and pt state he smoked it. advise and consult for pt. pt state he will quit (3) GERD (gastroesophageal reflux disease) Conclusion/Plan: stable, stable, on PEPCID (4) Gout Conclusion/Plan: resume home meds of Indocin resume home meds stable, no flare, resume home meds (5) Hx of coronary artery disease stable, vital, tele monitor pt (6) hypokalemia resolved continue daily lab test K3.2 replace of potassium daily lab test monitor Qualifiers: Pneumonia type: due to unspecified organism Laterality: right Lung location: upper lobe of lung Qualified Code(s): J18.1 - Lobar pneumonia, unspecified organism
[2017-07-18] MEDS ORDERED: VANCOMYCIN 1 GM VIAL ONE (08:31)
[2017-07-18] MEDS: POLYETHYLENE GLYCOL 3350 17 GM PACKET PO SCH (08:46)
[2017-07-18] MEDS: VANCOMYCIN INJ 1 GM in SODIUM CHLORIDE 0.9% 250 ML IV SCH ×2 (08:46→16:46)
[2017-07-18] MEDS: guaiFENesin 600 MG TABLET PO SCH ×2 (08:49→20:30)
[2017-07-18] MEDS: ENOXAPARIN 40 MG/0.4 ML SYRINGE SUBQ SCH (08:49)
[2017-07-18] MEDS: FAMOTIDINE 20 MG TABLET PO SCH (08:49)
[2017-07-18] MEDS ORDERED: IPRATROPIUM/ALBUTEROL 3 ML NEB INH PRN (08:50)
[2017-07-18] MEDS: SODIUM CHLORIDE FLUSH 0.9% 10 ML SYRINGE IVP PRN ×2 (08:53→14:16)
[2017-07-18] MEDS ORDERED: IOPAMIDOL-300 100 ML VIAL ONE (09:07)
--- NOTE | 2017-07-18 10:17 | XRAY Report ---
FRONTAL CHEST: 07/18/2017 CLINICAL INDICATION: Cough. COMPARISON: 07/14/2017. FINDINGS: Frontal view of the chest demonstrates a normal cardiac silhouette. Right upper lobe infil trate has improved slightly. No effusion or pneumothorax is present. IMPRESSION: SLIGHT IMPROVEMENT IN RIGHT UPPER LOBE INFILTRATE. JOB #: [id number] EXT JOB #:[id number]
--- NOTE | 2017-07-18 13:19 | CT Report ---
CT CHEST WITH CONTRAST: 07/18/2017 CLINICAL INDICATION: Consistent cough. COMPARISON: Plain film 07/18/2017, chest CT 11/02/2013. TECHNIQUE: Axial CT images of the chest were obtained with 80 mL Isovue 300 IV. FINDINGS: The heart and great vessels are unremarkable. Small mediastinal lymph nodes are seen, likely reactive. No adenopathy is appreciated. There is right upper lobe infiltrate, predominately posteriorly. Trace right effusion is present. The left lung is clear. No endobronchial lesion is appreciated. No pneumothorax. Limited evaluation of upper abdominal structures demonstrates normal adrenal glands. Osseous structures demonstrate degenerative changes. IMPRESSION: RIGHT UPPER LOBE INFILTRATE, WITH TRACE RIGHT EFFUSION. In accordance with CT protocol optimization, one or more of the following dose reduction techniques were utilized for this exam: automated exposure control, adjustment of mA and/or KV based on patient size, or use of iterative reconstructive technique. JOB #: [id number] EXT JOB #: [id number] [facility]
[2017-07-18] MEDS ORDERED: SODIUM CHLORIDE 0.9% 1,000 ML IV SCH (14:00)
[2017-07-18] MEDS ORDERED: IOPAMIDOL-300 100 ML VIAL IVP ONE ×2 (14:16)
[2017-07-18] MEDS: SODIUM CHLORIDE 0.9% 1,000 ML IV SCH (14:28)
[2017-07-18] MEDS: diphenhydrAMINE INJ 50 MG/ML VIAL IVP PRN (20:29)
[2017-07-19] MEDS: VANCOMYCIN INJ 1 GM in SODIUM CHLORIDE 0.9% 250 ML IV SCH ×4 (00:36→23:41)
[2017-07-19] MEDS: diphenhydrAMINE INJ 50 MG/ML VIAL IVP PRN ×3 (02:40→21:15)
[2017-07-19] MEDS: SODIUM CHLORIDE FLUSH 0.9% 10 ML SYRINGE IVP SCH ×3 (04:11→21:15)
[2017-07-19 05:47] LABS: BASOPHILS # (AUTO) 0.1 10^3/uL (0.0-0.1); BASOPHILS % (AUTO) 0.4 %; EOSINOPHILS # (AUTO) 0.2 10^3/uL (0.0-0.7); EOSINOPHILS % (AUTO) 1.3 %; HCT - HEMATOCRIT 32.6 % (42.0-52.0); HGB - HEMOGLOBIN 10.8 g/dL (14.0-18.0); LYMPHOCYTES # (AUTO) 2.9 10^3/uL (1.5-3.5); LYMPHOCYTES % (AUTO) 17.6 %; MEAN CORPUSCULAR HEMOGLOBIN 28.3 pg (27.0-31.0); MEAN CORPUSCULAR HGB CONC 33.1 g/dL (32.0-36.0); MEAN CORPUSCULAR VOLUME 85.3 fL (80.0-94.0); MONOCYTES # (AUTO) 1.2 10^3/uL (0.0-1.0); MONOCYTES % (AUTO) 7.5 %; NEUTROPHILS % (AUTO) 73.2 %; RED BLOOD COUNT 3.82 10^6/uL (4.70-6.10); RED CELL DISTRIBUTION WIDTH 15.2 % (12.0-15.0); UNCORRECTED WHITE BLOOD COUNT 16.4 x10^3/uL; WHITE BLOOD COUNT 16.4 x10^3/uL (4.8-10.8)
[2017-07-19] MEDS: CEFEPIME 1 GM in SODIUM CHLORIDE 0.9% MINIBAG 100 ML IV SCH ×3 (05:57→21:17)
[2017-07-19] MEDS: SODIUM CHLORIDE 0.9% 1,000 ML IV SCH ×2 (05:57→23:41)
[2017-07-19 06:03] LABS: ALBUMIN/GLOBULIN RATIO 0.6 (1.0-2.2); BILIRUBIN,TOTAL 0.8 mg/dL (0.2-1.0); CALCIUM 8.4 mg/dL (8.5-10.3); CREATININE 0.7 mg/dL (0.6-1.2); POTASSIUM 3.8 mmol/L (3.5-5.0); TOTAL PROTEIN 6.7 g/dL (6.7-8.2)
[2017-07-19] MEDS ORDERED: MAGNESIUM SULFATE 2 GRAM 2 GM/50 ML BAG IV ONE (07:49)
[2017-07-19] MEDS: FAMOTIDINE 20 MG TABLET PO SCH (08:12)
[2017-07-19] MEDS: SODIUM CHLORIDE FLUSH 0.9% 10 ML SYRINGE IVP PRN ×3 (08:12→14:35)
[2017-07-19] MEDS: guaiFENesin 600 MG TABLET PO SCH ×2 (08:12→21:14)
[2017-07-19] MEDS: POLYETHYLENE GLYCOL 3350 17 GM PACKET PO SCH (08:12)
[2017-07-19] MEDS: ENOXAPARIN 40 MG/0.4 ML SYRINGE SUBQ SCH (08:12)
--- NOTE | 2017-07-19 11:41 | PROVIDER PROGRESS NOTE ---
Assessment/Plan - Problem List (1) Pneumonia of left lower lobe due to Streptococcus pneumoniae Assessment/Plan: acute. blood cultures positive for both strep and staph pneumonia. sensitive to vancomycin and rocephin. he continues to have low grade fever and elevated white blood count. will continue with RT treatments and ABX. tylenol for fever (2) Methamphetamine use disorder, moderate, dependence Assessment/Plan: chronic. patient continues to smoke meth. He does not plan on quitting. He has been given information regarding quitting and request for social work education given. (3) GERD (gastroesophageal reflux disease) Qualifiers: Esophagitis presence: without esophagitis Qualified Code(s): K21.9 - Gastro -esophageal reflux disease without esophagitis Assessment/Plan: chronic continue with PPI (4) Atherosclerotic heart disease of [place] coronary artery without angina pectoris Qualifiers: [place] vs. transplanted heart: [place] heart Qualified Code(s): I25.10 - Atherosclerotic heart disease of [place] coronary artery without angina pectoris Assessment/Plan: chronic. continue with blood pressure medications home dosage. - Current Meds Current Meds: Current Medications Generic Name Dose Route Start Last Admin Trade Name Freq PRN Reason Stop Dose Admin Acetaminophen 650 mg 07/14/17 14:44 07/16/17 21:24 Tylenol PO 650 mg Q4HR PRN Administration Pain 1 to 4 Alprazolam 0.25 mg 07/15/17 16:28 07/16/17 09:42 Xanax PO 0.25 mg Q6HR PRN Administration Anxiety Diphenhydramine HCl 25 mg 07/17/17 22:27 07/19/17 11:15 Benadryl Inj IVP 25 mg Q6H PRN Administration Allergy Symptoms Enoxaparin Sodium 40 mg 07/15/17 09:00 07/19/17 08:12 Lovenox SUBQ 40 mg DAILY ITZEL Administration Famotidine 20 mg 07/15/17 09:00 07/19/17 08:12 Pepcid PO 20 mg DAILY ITZEL Administration Guaifenesin 600 mg 07/18/17 09:00 07/19/17 08:12 Mucinex PO 600 mg BID ITZEL Administration Cefepime HCl 1 gm/ Sodium 100 mls @ 200 mls/hr 07/15/17 11:00 07/19/17 06:27 Chloride IV Infused TID ITZEL Infusion Vancomycin HCl 1 gm/ Sodium 250 mls @ 167 mls/hr 07/17/17 00:00 07/19/17 09: 40 Chloride IV Infused Q8H ITZEL Infusion Sodium Chloride 1,000 mls @ 85 mls/hr 07/18/17 14:00 07/19/17 11:29 Normal Saline 0.9% IV 85 mls/hr .[id number] ITZEL Infusion Indomethacin 25 mg 07/17/17 08:24 07/17/17 09:06 Indocin PO 25 mg DAILY PRN Administration Joint Pain Polyethylene Glycol 17 gm 07/15/17 09:00 07/19/17 08:12 Miralax PO Not Given DAILY ITZEL Sodium Chloride 10 ml 07/14/17 14:44 07/19/17 11:18 Normal Saline Flush 0.9% IVP 20 ml PRN PRN Administration NEEDED PER PROVIDER ORDERS Sodium Chloride 10 ml 07/14/17 22:00 07/19/17 04:11 Normal Saline Flush 0.9% IVP Not Given Q8HR ITZEL - Lab Result Lab results reviewed: Yes Fish Bone Diagrams: 07/19/17 05:19 07/19/17 05:19 Other Lab Results: Abnormal Lab Results 07/18/17 07/18/17 07/18/17 04:40 04:40 07:22 WBC 14.2 x10^3/uL H x10^3/uL (4.8-10.8) RBC 3.93 10^6/uL L 10^6/uL (4.70-6.10) Hgb 10.8 g/dL L g/dL (14.0-18.0) Hct 33.2 % L % (42.0-52.0) RDW Plt Count MPV 7.1 fL L fL (7.4-11.4) Neut # 10.4 10^3/uL H 10^3/uL (1.5-6.6) [place] # 1.1 10^3/uL H 10^3/uL (0.0-1.0) Glucose 111 mg/dL H mg/dL (70-100) Calcium 8.4 mg/dL L mg/dL (8.5-10.3) Magnesium Total Protein 6.3 g/dL L g/dL (6.7-8.2) Albumin 2.4 g/dL L g/dL (3.2-5.5) Globulin Albumin/Globulin Ratio 0.6 L (1.0-2.2) Vancomycin Trough 20.2 ug/mL H ug/mL (5.0-15.0) 07/18/17 07/19/17 07/19/17 13:54 05:19 05:19 WBC 16.4 x10^3/uL H x10^3/uL (4.8-10.8) RBC 3.82 10^6/uL L 10^6/uL (4.70-6.10) Hgb 10.8 g/dL L g/dL (14.0-18.0) Hct 32.6 % L % (42.0-52.0) RDW 15.2 % H % (12.0-15.0) Plt Count 523 10^3/uL H 10^3/uL (130-450) MPV 7.0 fL L fL (7.4-11.4) Neut # 12.0 10^3/uL H 10^3/uL (1.5-6.6) [place] # 1.2 10^3/uL H 10^3/uL (0.0-1.0) Glucose 106 mg/dL H mg/dL (70-100) Calcium 8.4 mg/dL L mg/dL (8.5-10.3) Magnesium 1.6 mg/dL L mg/dL (1.7-2.8) Total Protein Albumin 2.4 g/dL L g/dL (3.2-5.5) Globulin 4.3 g/dL H g/dL (2.1-4.2) Albumin/Globulin Ratio 0.6 L (1.0-2.2) Vancomycin Trough - EKG Results EKG Interpreted Independently: No - Diagnostic Imaging Results Diagnostic Imaging Results: Final report reviewed - Additional Planning Condition/Complexity: Stable Consult/Specialty: OT, PT Plan Discussed with:: Patient, Case Management Time Spent: 31-60 minutes Subjective - Subjective Patient Reports: Resting Comfortably, No Complaints, Fever Nursing Reports: No Complaints, Other (low grade fever and not eating much) Objective Vital Signs: Vital Signs - 24 hr 07/18/17 07/18/17 07/18/17 12:00 15:37 19:55 Temperature 37.8 C H 37.9 C H Heart Rate 96 Heart Rate [ 91 92 Brachial] Respiratory 16 17 18 Rate Blood Pressure 142/80 H [Left Brachial artery] Blood Pressure 139/84 H [Right Brachial artery] O2 Saturation 94 95 07/18/17 07/19/17 07/19/17 20:20 00:00 04:00 Temperature 38 C H 37.8 C H 37.8 C H Heart Rate Heart Rate [ 101 H 93 92 Brachial] Respiratory 18 16 16 Rate Blood Pressure 138/81 H 122/58 L 121/73 [Left Brachial artery] Blood Pressure [Right Brachial artery] O2 Saturation 94 95 93 07/19/17 07/19/17 07:39 08:00 Temperature 37.4 C Heart Rate 90 Heart Rate [ 89 Brachial] Respiratory 16 16 Rate Blood Pressure [Left Brachial artery] Blood Pressure 126/74 [Right Brachial artery] O2 Saturation 94 Oxygen O2 Source Room air I&O (Last 24 Hrs): Intake and Output Totals x24h 07/17/17 07/18/17 07/19/17 23:59 23:59 23:59 Intake Total 3950 3251.417 2556.417 Output Total 3125 2560 1450 Balance 825 203.057 9688.417 General: Alert, Oriented x3, Cooperative HEENT: Atraumatic, PERRLA Neck: Supple, No JVD Lymphatic: no adenopathy Neuro: Alert Cardiovascular: Regular rate, Normal S1, Normal S2 Respiratory: Chest non-tender, No respiratory distress, Breath sounds nml Abdomen: Normal bowel sounds, Soft, No tenderness Extremities: No clubbing, No cyanosis, No edema, Normal pulses Skin: No rashes, No breakdown, No significant lesion - Results Results: Laboratory Results WBC 16.4 x10^3/uL (4.8-10.8) H 07/19/17 05:19 RBC 3.82 10^6/uL (4.70-6.10) L 07/19/17 05:19 Hgb 10.8 g/dL (14.0-18.0) L 07/19/17 05:19 Hct 32.6 % (42.0-52.0) L 07/19/17 05:19 MCV 85.3 fL (80.0-94.0) 07/19/17 05:19 MCH 28.3 pg (27.0-31.0) 07/19/17 05:19 MCHC 33.1 g/dL (32.0-36.0) 07/19/17 05:19 RDW 15.2 % (12.0-15.0) H 07/19/17 05:19 Plt Count 523 10^3/uL (130-450) H 07/19/17 05:19 MPV 7.0 fL (7.4-11.4) L 07/19/17 05:19 Neut # 12.0 10^3/uL (1.5-6.6) H 07/19/17 05:19 Lymph # 2.9 10^3/uL (1.5-3.5) 07/19/17 05:19 [place] # 1.2 10^3/uL (0.0-1.0) H 07/19/17 05:19 Eos # 0.2 10^3/uL (0.0-0.7) 07/19/17 05:19 Baso # 0.1 10^3/uL (0.0-0.1) 07/19/17 05:19 Absolute Nucleated RBC 0.00 x10^3/uL 07/19/17 05:19 Total Counted 100 07/16/17 05:00 Band Neuts % (Manual) 9 % (0-10) 07/16/17 05:00 Nucleated RBC % 0.0 /100WBC 07/19/17 05:19 Neutrophils # (Manual) 9.8 10^3/uL (1.5-6.6) H 07/16/17 05:00 Lymphocytes # (Manual) 2.9 10^3/uL (1.5-3.5) 07/16/17 05:00 Monocytes # (Manual) 1.6 10^3/uL (0.0-1.0) H 07/16/17 05:00 Eosinophils # (Manual) 0.3 10^3/uL (0-0.7) 07/16/17 05:00 Differential Comment MANUAL DIFFERENTIAL 07/16/17 05:00 Manual Slide Review Indicated 07/14/17 13:23 Platelet Estimate NORMAL (130-450,000) (NORMAL) 07/16/17 05:00 RBC Morph Micro Appear NORMAL APPEARANCE (NORMAL) 07/16/17 05:00 Sodium 137 mmol/L (135-145) 07/19/17 05:19 Potassium 3.8 mmol/L (3.5-5.0) 07/19/17 05:19 Chloride 102 mmol/L (101-111) 07/19/17 05:19 Carbon Dioxide 24 mmol/L (21-32) 07/19/17 05:19 Anion Gap 11.0 (6-13) 07/19/17 05:19 BUN 12 mg/dL (6-20) 07/19/17 05:19 Creatinine 0.7 mg/dL (0.6-1.2) 07/19/17 05:19 Estimated GFR (MDRD) 114 (>89) 07/19/17 05:19 Glucose 106 mg/dL (70-100) H 07/19/17 05:19 Lactic Acid 1.2 mmol/L (0.5-2.2) 07/18/17 13:54 Calcium 8.4 mg/dL (8.5-10.3) L 07/19/17 05:19 Magnesium 1.6 mg/dL (1.7-2.8) L 07/18/17 13:54 Total Bilirubin 0.8 mg/dL (0.2-1.0) 07/19/17 05:19 AST 10 IU/L (10-42) 07/19/17 05:19 ALT 14 IU/L (10-60) 07/19/17 05:19 Alkaline Phosphatase 76 IU/L (42-121) 07/19/17 05:19 Total Protein 6.7 g/dL (6.7-8.2) 07/19/17 05:19 Albumin 2.4 g/dL (3.2-5.5) L 07/19/17 05:19 Globulin 4.3 g/dL (2.1-4.2) H 07/19/17 05:19 Albumin/Globulin Ratio 0.6 (1.0-2.2) L 07/19/17 05:19 Lipase 30 U/L (22-51) 07/14/17 13:23 Last Dose Date 07/17/2017 07/18/17 07:22 Last Dose Time 00:00 07/18/17 07:22 Vancomycin Trough 20.2 ug/mL (5.0-15.0) H 07/18/17 07:22 Urine Opiates Screen POSITIVE (NEGATIVE) H 07/14/17 17:35 Ur Oxycodone Screen NEGATIVE (NEGATIVE) 07/14/17 17:35 Urine Methadone Screen NEGATIVE (NEGATIVE) 07/14/17 17:35 Ur Propoxyphene Screen NEGATIVE (NEGATIVE) 07/14/17 17:35 Ur Barbiturates Screen NEGATIVE (NEGATIVE) 07/14/17 17:35 Ur Tricyclics Screen NEGATIVE (NEGATIVE) 07/14/17 17:35 Ur Phencyclidine Scrn NEGATIVE (NEGATIVE) 07/14/17 17:35 Ur Amphetamine Screen POSITIVE (NEGATIVE) H 07/14/17 17:35 U Methamphetamines Scrn POSITIVE (NEGATIVE) H 07/14/17 17:35 U Benzodiazepines Scrn NEGATIVE (NEGATIVE) 07/14/17 17:35 Urine Cocaine Screen NEGATIVE (NEGATIVE) 07/14/17 17:35 U Cannabinoids Screen NEGATIVE (NEGATIVE) 07/14/17 17:35 Influenza A (Rapid) Negative (Negative) 07/19/17 09:35 Influenza B (Rapid) Negative (Negative) 07/19/17 09:35 Influenza Types A,B Ag - 07/19/17 09:35 - Procedures Procedures: Procedures EXCISION OF R LOW ARM SUBCU/FASCIA, OPEN APPROACH (04/26/17) FUSION OF R FINGER PHALANX JT WITH INT FIX, OPEN APPROACH (04/26/17)
[2017-07-19] MEDS: ACETAMINOPHEN 325 MG TABLET PO PRN (21:15)
[2017-07-20] MEDS: CEFEPIME 1 GM in SODIUM CHLORIDE 0.9% MINIBAG 100 ML IV SCH (05:52)
[2017-07-20] MEDS: SODIUM CHLORIDE FLUSH 0.9% 10 ML SYRINGE IVP SCH (05:52)
[2017-07-20] MEDS: VANCOMYCIN INJ 1 GM in SODIUM CHLORIDE 0.9% 250 ML IV SCH (08:30)
[2017-07-20] MEDS: FAMOTIDINE 20 MG TABLET PO SCH (08:31)
[2017-07-20] MEDS: guaiFENesin 600 MG TABLET PO SCH (08:31)
[2017-07-20] MEDS: ENOXAPARIN 40 MG/0.4 ML SYRINGE SUBQ SCH (08:31)
[2017-07-20] MEDS: POLYETHYLENE GLYCOL 3350 17 GM PACKET PO SCH (08:32)
[2017-07-20 09:07] LABS: BASOPHILS # (AUTO) 0.1 10^3/uL (0.0-0.1); BASOPHILS % (AUTO) 0.5 %; EOSINOPHILS # (AUTO) 0.2 10^3/uL (0.0-0.7); EOSINOPHILS % (AUTO) 1.5 %; HCT - HEMATOCRIT 33.3 % (42.0-52.0); HGB - HEMOGLOBIN 10.9 g/dL (14.0-18.0); LYMPHOCYTES # (AUTO) 2.2 10^3/uL (1.5-3.5); LYMPHOCYTES % (AUTO) 16.5 %; MEAN CORPUSCULAR HEMOGLOBIN 27.5 pg (27.0-31.0); MEAN CORPUSCULAR HGB CONC 32.6 g/dL (32.0-36.0); MEAN CORPUSCULAR VOLUME 84.4 fL (80.0-94.0); MEAN PLATELET VOLUME 6.6 fL (7.4-11.4); MONOCYTES # (AUTO) 0.6 10^3/uL (0.0-1.0); MONOCYTES % (AUTO) 4.7 %; NEUTROPHILS # (AUTO) 10.4 10^3/uL (1.5-6.6); NEUTROPHILS % (AUTO) 76.8 %; RED BLOOD COUNT 3.95 10^6/uL (4.70-6.10); RED CELL DISTRIBUTION WIDTH 15.3 % (12.0-15.0); UNCORRECTED WHITE BLOOD COUNT 13.5 x10^3/uL; WHITE BLOOD COUNT 13.5 x10^3/uL (4.8-10.8)
[2017-07-20 09:22] LABS: ALBUMIN/GLOBULIN RATIO 0.5 (1.0-2.2); BILIRUBIN,TOTAL 0.9 mg/dL (0.2-1.0); CALCIUM 8.5 mg/dL (8.5-10.3); CREATININE 0.8 mg/dL (0.6-1.2); MAGNESIUM 1.8 mg/dL (1.7-2.8); TOTAL PROTEIN 6.8 g/dL (6.7-8.2)
[2017-07-20] MEDS ORDERED: IOPAMIDOL-300 100 ML VIAL ONE (10:33)
--- NOTE | 2017-07-20 12:03 | CT Report ---
CT FACIAL BONES WITH CONTRAST: 07/20/2017 CLINICAL INDICATION: Possible abscess. TECHNIQUE: Axial CT images of the facial bones were obtained with 65 mL Isovue- 300 intravenously. Sagittal and coronal reconstructions were performed. In accordance with CT protocol optimization, one or more of the following dose reduction techniques were utilized for this exam: automated exposure control, adjustment of mA and/or KV based on patient size, or use of iterative reconstructive technique. FINDINGS: There is no evidence of facial bone fracture. The vascular structures enhance normally. The visualized orbital contents are unremarkable. There is mucosal thickening in the maxillary sinuses, right greater than left , the ethmoid air cells, and the sphenoid sinus, compatible with chronic sinus disease. No air-fluid levels are seen. The mastoid air cells are normally pneumatized. Multiple dental caries and missing teeth are noted. No drainable abscess is identified. No periosteal reaction is seen to suggest osteomyelitis. IMPRESSION: NO EVIDENCE OF A DRAINABLE ABSCESS. MULTIPLE DENTAL CARIES AND MISSING TEETH. CHRONIC SINUS DISEASE. JOB #: [id number] EXT JOB #: [id number] [facility]
[2017-07-20] MEDS: SODIUM CHLORIDE FLUSH 0.9% 10 ML SYRINGE IVP PRN (12:28)
[2017-07-20 12:37] VITALS: BP 129/84
--- NOTE | 2017-07-20 12:57 | Discharge Plan ---
Discharge Plan Disposition: Home, Self Care Condition: Stable Prescriptions: Sulfamethox/Trimeth 800/160 [Bactrim Ds] 1 tab PO BID #28 tablet Diet: Regular Activity Restrictions: No Restrictions Shower Restrictions: No Driving Restrictions: No Weight Bearing: Full Weight Instruction Topics: Abuse Meth Abuse and Addiction Additional Instructions or Follow Up instructions: PLEASE TAKE HOME MEDICATIONS PRESCRIBED. YOU HAVE BEEN GIVEN ANTIBIOTICS FOR BACTERIA IN YOUR BLOOD. YOU WILL NEED TO TAKE THIS MEDICATION TILL IT IS GONE. PLEASE RETURN TO YOUR PRIMARY CARE PROVIDER IF YOU HAVE QUESTIONS REGARDING YOUR MEDICATIONS PLEASE DO NOT USE ANY STREET DRUGS WHEN YOU ARE TAKING MEDICATIONS. YOUR BODY WILL NOT HEAL IF YOU ARE ABUSING DRUGS ALONG WITH THE PRESCRIPTION ANTIBIOTICS YOU NEED TO DRINK ALOT OF WATER DURING THE DAY AND EAT A HEART HEALTHY DIET STOP USING METHAMPETAMINE UNLESS PRESCRIBED BY YOUR DOCTOR. No Smoking: If you smoke, Please STOP! Call for help. Follow-up with: Angela Perkins ARNP [Provider Admit Priv/Credential] -
[2017-07-20] MEDS ORDERED: SULFAMETH/TRIMETH DS 800/160 MG TABLET PO SCH (13:00)
--- NOTE | 2017-07-20 13:16 | DISCHARGE SUMMARY ---
Discharge Summary Admit Date: 07/14/17 Discharge Date: 07/20/17 Discharging Provider: SUDHA TOM APRN Primary Care Provider: RYAN LICEA Code Status: Attempt Resuscitation Condition at Discharge: Stable Discharge Disposition: 01 Home, Self Care Discharge Facility Name: HOME - DIAGNOSES Admission Diagnoses: 1. ACUTE SEPTICEMIA SECONDARY TO CAP PNEUMONIA WITH UNK CAUSAL ORGANISM IN RIGHT UPPER LOBE OF LUNG 2. CHRONIC METHAMPHETAMINE DEPENDENCE, UNCOMPLICATED 3. CHRONIC GERD 4. CHRONIC GOUT 5. ATHEROSCLEROTIC HEART DISEASE OF [place] CORONARY ARTERY W/O ANGINA Discharge Diagnoses with Status of Each Condition: 1. ACUTE SEPTICEMIA WITH BACTEREMIA WITH STREP PNEUMONIA AND STAPH AUREUS SECONDARY TO RIGHT UPPER LOBE CAP PNA ON CT 2. ACUTE CHRONIC METHAMPHETAMINE DEPENDENCE, UNCOMPLICATED 3. CHRONIC GERD W/O ESOPHAGITIS 4. CHRONIC GOUT 5. ATHEROSCLEROTIC HEART DISEASE OF [place] CORONARY ARTERY W/O ANGINA 6. ACUTE ON CHRONIC MOUTH PAIN WITH MULTIPLE TOOTH DECAY AND DENTAL CARIES - HPI History of Present Illness: History of Present Illness HPI Comment/Other: This is a 61-year-old male with a past medical history significance for GERD, Gout and CAD, who present ER for evaluation of fever,chill, cough and night sweating. patient report in the recent three days he had fever, chill, sweating, cough with white thickening sputum. Patient state he was shaking when he stand, and feel chill. Patient is living on his own house, recently and with four children. Patient state he had " a bad diarrhea,like-watery." Patient denies GI bleeding, or dark stool but with "funny color, and a bad smell." patient denies cigarette smoking or alcoholic problem. But patient does report he smokes "crystal stuff." Patient report it is Methamphetamine. Patient denies IV drug but smoke with methamphetamine. Patient report he feel very bad today, he could not eat for 4 days, and feel very nausea but no vomiting. Patient denies chest pain, palpitation, shortness of breath, abdominal pain, dysuria, hematuria, GI bleeding, vision changing. CXR reveals upper right pneumonia. lab test reveals significant elevated WBC 24.5, and elevated BUN and Creatinine comparing with the previous. Patient is admitted for evaluation and treatment of pneumonia now. - CONSULTS | PROCEDURES Consultations: NONE Procedures: CT OF CHEST SHOWED RIGHT UPPER LOBE INFILTRATE - HOSPITAL COURSE Hospital Course: Patient is a 61-year-old male with a past medical history significance for GERD, Gout and CAD, who presented to the ER for evaluation of fever,chill, cough and night sweating. Patient also had reported diarrhea. He has a history of methamphetamine abuse with smoking crystal meth. He had anorexia and nausea but no vomiting. He had a CT of chest that revealed a right upper lobe pneumonia. He had an elevated WBC at 24 at admisssion. He was given Vancomycin and Rocephin and Azithromycin. He grew out strep PNA and staph aureus in his blood culture x 2. He was then transitioned to vancomycin. he remained on antibiotic treatments IV for a week until sensitivities reported. The bacteria was sensitive to bactrim and Levaquin. He was given prescription for Bactrim at discharge. He remained afebrile at least 24 hours prior to discharge. he received 7 days of antibiotics despite still having an elevated WBC. Patient was completely asymtomatic and wishing to be discharged home. A repeat CT of the face was performed since patient did have some right mouth pain and cheek swelling from multiple dental caries and to rule out an abcess. Ther was no abscess and and ECHO showed no possible endocarditis. He was still treated with a dose of Rocephin IV prior to the Vancomycin. He was given tylenol for pain and monitored for changes in mental status due to the drug abuse and potential withdrawal. For nausea he was given Zofran and he was given ativan for agitiation and withdrawal symptoms. He was encouraged to ambulate in the room RT saw patient for duoneb treatments and he was given NC for supplemental oxygen. DVT prophylaxis was with SCD [place]. [place] [id number]. He had a low magensium and he received magnesium sulfate IV. He was able to be discharged home with prescription for Bactrim and strict instructions for followup in the next 48 hours. - ALLERGIES Allergies/Adverse Reactions: Allergies Allergy/AdvReac Type Severity Reaction Status Date / Time codeine [Codeine] Allergy Intermediate Rash Verified 04/18/17 19:18 Sulfa (Sulfonamide AdvReac Intermediate Emesis Verified 04/18/17 19:18 Antibiotics) - MEDICATIONS Home Medications: Ambulatory Orders Medication Instructions Recorded Confirmed Omeprazole [PriLOSEC] 20 mg PO DAILY 04/09/15 07/15/17 Indomethacin 25 mg PO DAILY PRN 04/25/17 07/15/17 Sulfamethox/Trimeth 800/160 1 tab PO BID #28 tablet 07/20/17 [Bactrim Ds] - PHYSICAL EXAM AT DISCHARGE General Appearance: positive: No acute distress, Alert Eyes Bilateral: positive: Normal inspection, PERRL, EOMI, No lid inflammation ENT: positive: ENT inspection nml, Pharynx nml, No signs of dehydration Neck: positive: Nml inspection, Thyroid nml, No JVD, Trachea midline Respiratory: positive: Chest non-tender, No respiratory distress Cardiovascular: positive: Regular rate & rhythm, No murmur, No gallop. negative : JVD present Peripheral Pulses: positive: 2+ Abdomen: positive: Non-tender, No organomegaly, Nml bowel sounds, No distention. negative: Guarding, Rebound, Hepatomegaly Back: positive: Nml inspection. negative: CVA tenderness (R), CVA tenderness (L ) Skin: positive: Color nml, No rash, Warm, Dry. negative: Cyanosis Extremities: positive: Non-tender, Full ROM, Nml appearance, No pedal edema Neurologic/Psychiatric: positive: Oriented x3, CN's nml (2-12), Motor nml, Sensation nml, Mood/affect nml Reflexes: Knee (R): 2+, Knee (L): 2+ - LABS Result Diagrams: 07/20/17 08:52 07/20/17 08:52 Other Lab Results: Abnormal Lab Results 07/18/17 07/19/17 07/19/17 13:54 05:19 05:19 WBC 16.4 x10^3/uL H x10^3/uL (4.8-10.8) RBC 3.82 10^6/uL L 10^6/uL (4.70-6.10) Hgb 10.8 g/dL L g/dL (14.0-18.0) Hct 32.6 % L % (42.0-52.0) RDW 15.2 % H % (12.0-15.0) Plt Count 523 10^3/uL H 10^3/uL (130-450) MPV 7.0 fL L fL (7.4-11.4) Neut # 12.0 10^3/uL H 10^3/uL (1.5-6.6) [place] # 1.2 10^3/uL H 10^3/uL (0.0-1.0) Glucose 106 mg/dL H mg/dL (70-100) Calcium 8.4 mg/dL L mg/dL (8.5-10.3) Magnesium 1.6 mg/dL L mg/dL (1.7-2.8) Albumin 2.4 g/dL L g/dL (3.2-5.5) Globulin 4.3 g/dL H g/dL (2.1-4.2) Albumin/Globulin Ratio 0.6 L (1.0-2.2) 07/20/17 07/20/17 08:52 08:52 WBC 13.5 x10^3/uL H x10^3/uL (4.8-10.8) RBC 3.95 10^6/uL L 10^6/uL (4.70-6.10) Hgb 10.9 g/dL L g/dL (14.0-18.0) Hct 33.3 % L % (42.0-52.0) RDW 15.3 % H % (12.0-15.0) Plt Count 599 10^3/uL H 10^3/uL (130-450) MPV 6.6 fL L fL (7.4-11.4) Neut # 10.4 10^3/uL H 10^3/uL (1.5-6.6) [place] # Glucose 159 mg/dL H mg/dL (70-100) Calcium Magnesium Albumin 2.4 g/dL L g/dL (3.2-5.5) Globulin 4.4 g/dL H g/dL (2.1-4.2) Albumin/Globulin Ratio 0.5 L (1.0-2.2) - DIAGNOSTIC IMAGING Diagnostic Imaging Results: Final report reviewed - FOLLOW UP Follow Up: PATIENT WAS INSTRUCTED TO SEE HIS PRIMARY CARE PROVIDER WITHIN 1-2 DAYS OF DISCHARGE. HE IS TO TAKE ALL HOME MEDICATIONS PRESCRIBED AND TO STOP SMOKING METH. HE WAS GIVEN A PRESCRIPTION FOR BACTRIM THAT IS SSENSITIVE AND SUSCEPTIBLE FOR STREP AND STAPH INFECTION IN HIS BLOOD. HE HAD RECEIVED 7 DAYS OF VANCOMYCIN AND AZITHROMYCIN AND ROCEPHIN WHILE INPATIENT. - TIME SPENT Time Spent in Discharge (Minutes): 40 (FOR DISCHARGE AND PLANNING)
[2017-07-20] MEDS ORDERED: levoFLOXacin 250 MG TABLET PO SCH (14:00)
[2017-07-20] MEDS ORDERED: IOPAMIDOL-300 100 ML VIAL IVP ONE ×2 (14:48)
== END 2017-07-20 14:36 | disposition home or self-care (01) | DRG 871 ==
LOC: EDUNIT# → ED 13:02 → MS3 14:44
PROVIDERS: ADMIT Nurse Practitioner Gerontology; ATTEND Nurse Practitioner
DX: A41.9 Sepsis, unspecified organism (principal); J18.1 Lobar pneumonia, unspecified organism; I95.9 Hypotension, unspecified; A40.3 Sepsis due to Streptococcus pneumoniae; M10.9 Gout, unspecified; J15.211 Pneumonia due to Methicillin susceptible Staphylococcus aureus; J13 Pneumonia due to Streptococcus pneumoniae; F15.20 Other stimulant dependence, uncomplicated; E87.6 Hypokalemia; E83.42 Hypomagnesemia; K21.9 Gastro-esophageal reflux disease without esophagitis; M1A.9XX0 Chronic gout, unspecified, without tophus (tophi); I25.10 Atherosclerotic heart disease of native coronary artery without angina pectoris; K02.9 Dental caries, unspecified; Z86.14 Personal history of Methicillin resistant Staphylococcus aureus infection; Z71.51 Drug abuse counseling and surveillance of drug abuser; Z98.62 Peripheral vascular angioplasty status; Z88.2 Allergy status to sulfonamides
CPT/HCPCS: 36415; 70487; 71010; 71020; 71260; 80048; 80053; 80306; 82270; 83605; 83690; 83735; 85014; 85018; 85025; 87040; 87070; 87077; 87205; 87275; 87276; 87493; 87640; 93005; 93306; 96365; 96375; 99284; 99285

== ENCOUNTER 2017-10-18 15:30 | Outpatient (CLI) | payer MEDICARE | END 2017-10-18 15:31 | disposition home or self-care (01) | LOC: LAB.R 15:30 | PROVIDERS: ATTEND Nurse Practitioner Family | DX: L02.01 Cutaneous abscess of face (principal) | CPT/HCPCS: 87070; 87205 ==

== ENCOUNTER 2017-11-09 12:33 | Emergency (ER) | payer MEDICARE ==
[2017-11-09 12:51] VITALS: BP 153/105
[2017-11-09] MEDS ORDERED: PROPARACAINE 0.5% OPHTH DROPS 15 ML EACHEYE STA (12:53)
--- NOTE | 2017-11-09 13:03 | ED Physician Documentation ---
PD HPI OPHTHO - Stated complaint Stated Complaint: BILAT EYE IRRITATION - Chief complaint Chief Complaint: Heent - History obtained from History obtained from: Patient - History of Present Illness Timing - onset: Other (One days worth of eye irritation, both sides but right much more than left. 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 denies: Loss of vision, Decreased vision Ears: denies: Loss of hearing, Ear pain PD PAST MEDICAL HISTORY - Past Medical History Cardiovascular: None Respiratory: None Neuro: None Endocrine/Autoimmune: None GI: GERD : Other HEENT: None Psych: None Musculoskeletal: Gout Derm: Other - Past Surgical History Past Surgical History: Yes General: Colonoscopy Ortho: Spine surgery Cardiovascular: Vascular surgery, Angioplasty - Present Medications Home Medications: Ambulatory Orders Medication Instructions Recorded Confirmed Omeprazole [PriLOSEC] 20 mg PO DAILY 04/09/15 07/15/17 Indomethacin 25 mg PO DAILY PRN 04/25/17 07/15/17 Levofloxacin [Levaquin] 750 mg PO DAILY #7 tablet 07/20/17 Erythromycin Base [Erythromycin] 1 applic OP 5XD 7 Days oint...g. 11/09/17 - Allergies Allergies/Adverse Reactions: Allergies Allergy/AdvReac Type Severity Reaction Status Date / Time codeine [Codeine] Allergy Intermediate Rash Verified 04/18/17 19:18 Sulfa (Sulfonamide AdvReac Intermediate Emesis Verified 04/18/17 19:18 Antibiotics) - Social History Does the pt smoke?: No Smoking Status: Never smoker Does the pt drink ETOH?: No Does the pt have substance abuse?: No - Immunizations Immunizations are current?: Yes Immunizations: TDAP >10years/unknown - POLST Patient has POLST: No POLST Status: Full Code PD ED PE NORMAL - Vitals Vital signs reviewed: Yes - General General: Alert and oriented X 3, No acute distress - HEENT HEENT: PERRL, EOMI, Other (On gross and fluorescein examination there is a small metallic corneal foreign body, inferior on the right without rust ring. No other flourescein uptake or abnormalities.) - Neuro Neuro: Alert and oriented X 3, Normal speech - Psych Psych: Normal mood, Normal affect Results - Vitals Vitals: Vital Signs - 24 hr 11/09/17 12:49 Temperature 36.6 C Heart Rate 90 Respiratory 16 Rate Blood Pressure 153/105 H O2 Saturation 98 Oxygen O2 Source Room air Procedures - FB removal FB location: Other (Right cornea, small metal [place]) FB removal preparation: Local anesthesia-specify (proparacaine) Removal method: Other (moistened q-tip) FB removal aftercare: No complications, Removed successfully (no residual material or rust ring) Departure - Departure Disposition: 01 Home, Self Care Clinical Impression: Corneal FB (foreign body) Qualifiers: Encounter type: initial encounter Laterality: right Qualified Code(s): T15.01XA - Foreign body in cornea, right eye, initial encounter Condition: Good Record reviewed to determine appropriate education?: Yes Instructions: ED Foreign Body Cornea Follow-Up: Khris Corona MD [Provider Admit Priv/Credential] - Within 3 Days Prescriptions: Erythromycin Base [Erythromycin] 1 applic OP 5XD 7 Days oint...g. Comments: Your blood pressure was elevated today on check into the emergency department. This does not mean that you have hypertension, it is a common phenomenon to come to the emergency department and have elevated blood pressure. I recommend that you see your primary care physician within the week to have it rechecked when you are feeling better.
== END 2017-11-09 13:11 | disposition home or self-care (01) ==
LOC: ED 12:33
DX: T15.01XA Foreign body in cornea, right eye, initial encounter (principal); X58.XXXA Exposure to other specified factors, initial encounter; R03.0 Elevated blood-pressure reading, without diagnosis of hypertension
CPT/HCPCS: 65220; 99283; J3490

== ENCOUNTER 2017-12-22 12:41 | Emergency (ER) | payer MEDICARE ==
[2017-12-22 12:57] VITALS: BP 139/85
[2017-12-22] MEDS ORDERED: PROPARACAINE 0.5% OPHTH DROPS 15 ML LEFTEYE STA (13:06)
--- NOTE | 2017-12-22 13:08 | ED Physician Documentation ---
PD HPI OPHTHO - Stated complaint Stated Complaint: L EYE REDNESS - Chief complaint Chief Complaint: Heent - History obtained from History obtained from: Patient - History of Present Illness Timing - onset: Yesterday (Foreign body sensation in the left eye since yesterday. 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 denies: Loss of vision , Photophobia Ears: denies: Loss of hearing, Ear pain Nose: denies: Rhinorrhea / runny nose, Congestion PD PAST MEDICAL HISTORY - Past Medical History Cardiovascular: None Respiratory: None Neuro: None Endocrine/Autoimmune: None GI: GERD : Other HEENT: None Psych: None Musculoskeletal: Gout Derm: Other - Past Surgical History Past Surgical History: Yes General: Colonoscopy Ortho: Spine surgery Cardiovascular: Vascular surgery, Angioplasty - Present Medications Home Medications: Ambulatory Orders Medication Instructions Recorded Confirmed Omeprazole [PriLOSEC] 20 mg PO DAILY 04/09/15 07/15/17 Indomethacin 25 mg PO DAILY PRN 04/25/17 07/15/17 Levofloxacin [Levaquin] 750 mg PO DAILY #7 tablet 07/20/17 Erythromycin Base [Erythromycin] 1 applic OP 5XD 7 Days oint...g. 11/09/17 - Allergies Allergies/Adverse Reactions: Allergies Allergy/AdvReac Type Severity Reaction Status Date / Time codeine [Codeine] Allergy Intermediate Rash Verified 04/18/17 19:18 Sulfa (Sulfonamide AdvReac Intermediate Emesis Verified 04/18/17 19:18 Antibiotics) - Social History Does the pt smoke?: No Smoking Status: Never smoker Does the pt drink ETOH?: No Does the pt have substance abuse?: No - Immunizations Immunizations are current?: Yes Immunizations: TDAP >10years/unknown - POLST Patient has POLST: No POLST Status: Full Code PD ED PE NORMAL - Vitals Vital signs reviewed: Yes - General General: Alert and oriented X 3, No acute distress - HEENT HEENT: PERRL, EOMI, Other (There is a small metallic foreign body, left cornea, just medial of the midline.) - Cardiac Cardiac: RRR, No murmur - Respiratory Respiratory: No respiratory distress, Clear bilaterally - Abdomen Abdomen: Non tender - Neuro Neuro: Alert and oriented X 3, Normal speech - Psych Psych: Normal mood, Normal affect Results - Vitals Vitals: Vital Signs - 24 hr 12/22/17 12:55 Temperature 36.4 C L Heart Rate 81 Respiratory 18 Rate Blood Pressure 139/85 H O2 Saturation 98 Oxygen O2 Source Room air Procedures - FB removal FB location: Other (Left cornea) FB removal preparation: Local anesthesia-specify (topical proparacaine) Removal method: Other (removed esily with moist q-tip, no rust ring. No other fluorescein uptake other than time bit where the FB was.) FB removal aftercare: No complications, Patient tolerated well Departure - Departure Disposition: 01 Home, Self Care Clinical Impression: Corneal FB (foreign body) Qualifiers: Encounter type: initial encounter Laterality: left Qualified Code(s): T15.02XA - Foreign body in cornea, left eye, initial encounter Condition: Good Record reviewed to determine appropriate education?: Yes Instructions: ED Foreign Body Cornea Comments: Use the antibiotic ointment a few times a day for the next 3 days. Return if worse. Follow-up with your eye doctor Tuesday if still having persistent symptoms. Your blood pressure was elevated today on check into the emergency department. This does not mean that you have hypertension, it is a common phenomenon to come to the emergency department and have elevated blood pressure. I recommend that you see your primary care physician within the week to have it rechecked when you are feeling better.
== END 2017-12-22 13:22 | disposition home or self-care (01) ==
LOC: ED 12:41
DX: T15.02XA Foreign body in cornea, left eye, initial encounter (principal); X58.XXXA Exposure to other specified factors, initial encounter; R03.0 Elevated blood-pressure reading, without diagnosis of hypertension
CPT/HCPCS: 65220; 99283; J3490

== ENCOUNTER 2018-03-29 20:15 | Emergency (ER) | payer MEDICARE ==
[2018-03-29 20:22] VITALS: BP 169/98
--- NOTE | 2018-03-29 20:51 | ED Physician Documentation ---
PD HPI OPHTHO - Stated complaint Stated Complaint: SORE ON NECK/RT EYE IRRITATION - Chief complaint Chief Complaint: Wound - History obtained from History obtained from: Patient - History of Present Illness Timing - onset: Today Timing - details: Gradual onset, Still present Location: Right Quality / character: Burning Associated symptoms: Redness Similar symptoms before: No diagnosis Recently seen: Not recently seen - Additional information Additional information: Patient is a 62 year old male who is presenting to the emergency department for right sided eye redness. patient reports that he has a history of mrsa on his skin and thinks he is developing a spot on his left neck. patient states that he then rubbed his eyes and now he has redness and irritation of his right eye. Review of Systems Ten Systems: 10 systems reviewed and negative Eyes: reports: Irritation Skin: reports: Rash PD PAST MEDICAL HISTORY - Past Medical History Cardiovascular: None Respiratory: None Endocrine/Autoimmune: None GI: GERD : Other HEENT: None Psych: None Musculoskeletal: Gout Derm: Other - Past Surgical History Past Surgical History: Yes General: Colonoscopy Ortho: Spine surgery Cardiovascular: Vascular surgery, Angioplasty - Present Medications Home Medications: Ambulatory Orders Medication Instructions Recorded Confirmed Omeprazole [PriLOSEC] 20 mg PO DAILY 04/09/15 07/15/17 Indomethacin 25 mg PO DAILY PRN 04/25/17 07/15/17 Levofloxacin [Levaquin] 750 mg PO DAILY #7 tablet 07/20/17 Erythromycin Base [Erythromycin] 1 applic OP 5XD 7 Days oint...g. 11/09/17 Polymyxin B Sulf/Trimethoprim 1 drop RIGHTEYE Q4H 7 Days #1 drops 03/29/18 [Polytrim Eye Drops] - Allergies Allergies/Adverse Reactions: Allergies Allergy/AdvReac Type Severity Reaction Status Date / Time codeine [Codeine] Allergy Intermediate Rash Verified 03/29/18 20:21 Sulfa (Sulfonamide AdvReac Intermediate Emesis Verified 03/29/18 20:21 Antibiotics) - Social History Does the pt smoke?: No Smoking Status: Never smoker Does the pt drink ETOH?: No Does the pt have substance abuse?: No - Immunizations Immunizations are current?: Yes Immunizations: TDAP >10years/unknown - POLST Patient has POLST: No POLST Status: Full Code PD ED PE NORMAL - Vitals Vital signs reviewed: Yes - General General: Alert and oriented X 3, No acute distress - HEENT HEENT: Atraumatic - Cardiac Cardiac: RRR - Respiratory Respiratory: No respiratory distress - Extremities Extremities: No deformity - Neuro Neuro: Alert and oriented X 3 Eye Opening: Spontaneous PD ED PE EXPANDED - Eyes Eyes: Right eye, Injected conj/sclera. No: Eyelid injury, Eyelid swelling, Corneal abrasion - Derm Derm: Rash (0.5 by 1cm rash on his left neck) Results - Vitals Vitals: Vital Signs - 24 hr 03/29/18 20:18 Temperature 36.3 C L Heart Rate 97 Respiratory 17 Rate Blood Pressure 169/98 H O2 Saturation 98 Oxygen O2 Source Room air PD MEDICAL DECISION MAKING - ED course Complexity details: reviewed old records, reviewed results, re-evaluated patient , considered differential, d/w patient ED course: Patient was seen and examined at bedside. patient was well appearing and in no distress. patient was empirically covered with ophthalmic antibiotics. patient required no further work up and was stable for discharge with outpatient follow up. - Sepsis Event Vital Signs: Vital Signs - 24 hr 03/29/18 20:18 Temperature 36.3 C L Heart Rate 97 Respiratory 17 Rate Blood Pressure 169/98 H O2 Saturation 98 Oxygen O2 Source Room air Departure - Departure Disposition: 01 Home, Self Care Clinical Impression: Conjunctivitis Condition: Good Instructions: Conjunctivitis Follow-Up: Angela Perkins ARNP [Primary Care Provider] - Within 3 Days Prescriptions: Polymyxin B Sulf/Trimethoprim [Polytrim Eye Drops] 1 drop RIGHTEYE Q4H 7 Days # 1 drops Comments: You have been given your first treatment of eye drops today and you will need to take them for the next week. You should follow up with your doctor if your symptoms aren't getting better in the next 2-3 days. You may return to the emergency department at any time for new, worsening or uncontrollable symptoms. Discharge Date/Time: 03/29/18 20:59
[2018-03-29] MEDS: POLYMYXIN B/TRIMETH OPHTH DROPS RIGHTEYE STA (20:58)
== END 2018-03-29 20:59 | disposition home or self-care (01) ==
LOC: ED 20:15
DX: H10.9 Unspecified conjunctivitis (principal); K21.9 Gastro-esophageal reflux disease without esophagitis; M10.9 Gout, unspecified
CPT/HCPCS: 99283

== ENCOUNTER 2018-05-12 11:04 | Outpatient (CLI) | payer MEDICARE | END 2018-05-12 11:05 | disposition critical access hospital (66) | LOC: EMS 11:04 | PROVIDERS: ATTEND Surgery | DX: R10.31 Right lower quadrant pain (principal) | CPT/HCPCS: A0425; A0429 ==

== ENCOUNTER 2018-05-12 11:23 | Emergency (ER) | payer MEDICARE ==
[2018-05-12 11:48] LABS: BASOPHILS # (AUTO) 0.1 10^3/uL (0.0-0.1); BASOPHILS % (AUTO) 0.4 %; EOSINOPHILS # (AUTO) 0.1 10^3/uL (0.0-0.7); EOSINOPHILS % (AUTO) 0.9 %; HGB - HEMOGLOBIN 12.1 g/dL (14.0-18.0); LYMPHOCYTES # (AUTO) 2.5 10^3/uL (1.5-3.5); LYMPHOCYTES % (AUTO) 18.3 %; MEAN CORPUSCULAR HEMOGLOBIN 26.8 pg (27.0-31.0); MEAN CORPUSCULAR HGB CONC 32.9 g/dL (32.0-36.0); MEAN CORPUSCULAR VOLUME 81.5 fL (80.0-94.0); MEAN PLATELET VOLUME 6.3 fL (7.4-11.4); MONOCYTES % (AUTO) 7.1 %; NEUTROPHILS # (AUTO) 9.9 10^3/uL (1.5-6.6); NEUTROPHILS % (AUTO) 73.3 %; PLT - PLATELET COUNT 505 10^3/uL (130-450); RED CELL DISTRIBUTION WIDTH 15.1 % (12.0-15.0); WHITE BLOOD COUNT 13.5 x10^3/uL (4.8-10.8)
[2018-05-12 11:58] LABS: ALBUMIN 3.2 g/dL (3.2-5.5); ALBUMIN/GLOBULIN RATIO 0.7 (1.0-2.2); ALKALINE PHOSPHATASE 82 IU/L (42-121); ALT ALANINE AMINOTRANSFERASE < 10 IU/L (10-60); AST ASPARTATE AMINOTRANSFERASE 14 IU/L (10-42); BILIRUBIN,TOTAL 0.5 mg/dL (0.2-1.0); BUN - BLOOD UREA NITROGEN 14 mg/dL (6-20); CALCIUM 8.7 mg/dL (8.5-10.3); CARBON DIOXIDE - CO2 24 mmol/L (21-32); CHLORIDE 100 mmol/L (101-111); CREATININE 0.6 mg/dL (0.6-1.2); GFR - MDRD 136 (>89); GLUCOSE 98 mg/dL (70-100); LIPASE 36 U/L (22-51); SODIUM 134 mmol/L (135-145); TOTAL PROTEIN 7.9 g/dL (6.7-8.2)
[2018-05-12] MEDS ORDERED: MORPHINE 10 MG/ML VIAL IVP STA (12:44)
--- NOTE | 2018-05-12 12:47 | ED Physician Documentation ---
PD HPI ABD PAIN - Stated complaint Stated Complaint: ABD PX - Chief complaint Chief Complaint: Abd Pain - History obtained from History obtained from: Patient - History of Present Illness Timing - onset: Other (He has been feeling fatigued for a week but developed right lower quadrant pain that has been nonmigratory since last night with chills, poor appetite. He has a history of back surgeries and carotid endarterectomy but no abdominal surgeries. He also has severe chills.) Review of Systems Constitutional: reports: Chills. denies: Fever Cardiac: denies: Chest pain / pressure, Palpitations Respiratory: denies: Dyspnea, Cough GI: reports: Abdominal Pain, Nausea. denies: Vomiting, Constipation, Diarrhea PD PAST MEDICAL HISTORY - Past Medical History Past Medical History: Yes Cardiovascular: None Respiratory: None Endocrine/Autoimmune: None GI: GERD : Other HEENT: None Psych: None Musculoskeletal: Gout Derm: Other - Past Surgical History Past Surgical History: Yes General: Colonoscopy Ortho: Spine surgery Cardiovascular: Vascular surgery, Angioplasty - Present Medications Home Medications: Ambulatory Orders Medication Instructions Recorded Confirmed HYDROcod/ACETAM 5/325 [[place] 5/325] 1 - 2 ea PO Q6H PRN #15 tablet 05/12/18 - Allergies Allergies/Adverse Reactions: Allergies Allergy/AdvReac Type Severity Reaction Status Date / Time codeine [Codeine] Allergy Intermediate Rash Verified 03/29/18 20:21 Sulfa (Sulfonamide AdvReac Intermediate Emesis Verified 03/29/18 20:21 Antibiotics) - Social History Does the pt smoke?: No Smoking Status: Never smoker Does the pt drink ETOH?: No Does the pt have substance abuse?: No - Family History Family history: reports: Non contributory - Immunizations Immunizations are current?: Yes Immunizations: TDAP >10years/unknown - POLST Patient has POLST: No POLST Status: Full Code PD ED PE NORMAL - Vitals Vital signs reviewed: Yes - General General: Alert and oriented X 3, No acute distress - HEENT HEENT: PERRL, EOMI - Neck Neck: Supple, no meningeal sign, No bony TTP - Cardiac Cardiac: RRR, No murmur - Respiratory Respiratory: No respiratory distress, Clear bilaterally - Abdomen Abdomen: Normal bowel sounds, Soft, Other (Focal right lower quadrant tenderness without guarding or rebound.) - Back Back: No CVA TTP, No spinal TTP - Derm Derm: Normal color, Warm and dry - Extremities Extremities: No edema, No calf tenderness / cord - Neuro Neuro: Alert and oriented X 3, Normal speech - Psych Psych: Normal mood, Normal affect Results - Vitals Vitals: Vital Signs - 24 hr 05/12/18 05/12/18 11:28 13:21 Temperature 36.7 C 36.6 C Heart Rate 88 93 Respiratory 18 16 Rate Blood Pressure 130/106 H 143/101 H O2 Saturation 100 97 Oxygen O2 Source Room air - Labs Labs: Laboratory Tests 05/12/18 05/12/18 11:40 11:40 WBC 13.5 H RBC 4.50 L Hgb 12.1 L Hct 36.7 L MCV 81.5 MCH 26.8 L MCHC 32.9 RDW 15.1 H Plt Count 505 H MPV 6.3 L Neut # (Auto) 9.9 H Lymph # (Auto) 2.5 Dewitt # (Auto) 1.0 Eos # (Auto) 0.1 Baso # (Auto) 0.1 Absolute Nucleated RBC 0.00 Nucleated RBC % 0.0 Sodium 134 L Potassium 3.8 Chloride 100 L Carbon Dioxide 24 Anion Gap 10.0 BUN 14 Creatinine 0.6 Estimated GFR (MDRD) 136 Glucose 98 Calcium 8.7 Total Bilirubin 0.5 AST 14 ALT < 10 L Alkaline Phosphatase 82 Total Protein 7.9 Albumin 3.2 Globulin 4.7 H Albumin/Globulin Ratio 0.7 L Lipase 36 - Rads (name of study) CT A/P Radiology: EMP read contemporaneously (1. Normal appendix. Normal terminal ileum. 2. Extensive abnormal retroperitoneal adenopathy with associated edema indicating active inflammatory or malignant process. 3. Dominant 3.3 x 3.3 x 2.5 cm mass or lymph node right lower quadrant, along the antimesenteric aspect of the normal appearing cecum. Moderate amount of adjacent edema and small amount of linear fluid. 4. Grade 1 spondylolisthesis L5-S1. 5. Right nephrolithiasis. ) PD MEDICAL DECISION MAKING - ED course ED course: Appendicitis is high on the differential. I spoke with the on-call surgeon, Dr. Hopkins after my initial evaluation who given his age recommended to CT for confirmation. The CT unfortunately did not confirm appendicitis, did confirm a cecal mass with retroperitoneal adenopathy. Dr. Hopkins saw him and arranged for him to see her next week to prep for colonoscopy for a tissue diagnosis. - Sepsis Event Vital Signs: Vital Signs - 24 hr 05/12/18 05/12/18 11:28 13:21 Temperature 36.7 C 36.6 C Heart Rate 88 93 Respiratory 18 16 Rate Blood Pressure 130/106 H 143/101 H O2 Saturation 100 97 Oxygen O2 Source Room air Departure - Departure Disposition: Home, Self Care Clinical Impression: Cecum mass Abdominal pain Qualifiers: Abdominal location: right lower quadrant Qualified Code(s): R10.31 - Right lower quadrant pain Clinical Impression: (Ruled Out): Appendicitis Condition: Good Record reviewed to determine appropriate education?: Yes Follow-Up: SLAVA HOPKINS MD [Provider Admit Priv/Credential] - (Tuesday 11:30am) Prescriptions: HYDROcod/ACETAM 5/325 [[place] 5/325] 1 - 2 ea PO Q6H PRN #15 tablet PRN Reason: Pain Comments: You have an appointment with Dr. Hopkins to prep you for a colonoscopy next week. The appointment is 1130 this coming Tuesday. The office is here in [place]. In the meantime there are some painkillers if pain is uncontrolled, if that does not help you can return anytime. Your blood pressure was elevated today on check into the emergency department. This does not mean that you have hypertension, it is a common phenomenon to come to the emergency department and have elevated blood pressure. I recommend that you see your primary care physician within the week to have it rechecked when you are feeling better.
[2018-05-12] MEDS ORDERED: IOPAMIDOL-300 100 ML VIAL ONE (13:46)
[2018-05-12] MEDS ORDERED: IOPAMIDOL-300 100 ML VIAL IVP ONE (14:05)
--- NOTE | 2018-05-12 14:21 | CT Report ---
Procedure Date: 05/12/2018 Accession Number: [id number] / [id number] Procedure: CT - Abdomen/Pelvis W/ CPT Code: FULL RESULT: EXAM: CT ABDOMEN AND PELVIS EXAM DATE: 05/12/2018 02:01 PM. CLINICAL HISTORY: Right lower quadrant pain. COMPARISONS: None. TECHNIQUE: Routine helical CT imaging was performed through the abdomen and pelvis. IV contrast: 100 mL Isovue-370. Enteric contrast: No. Reconstructions: Coronal and sagittal. In accordance with CT protocol optimization, one or more of the following dose reduction techniques were utilized for this exam: automated exposure control, adjustment of mA and/or KV based on patient size, or use of iterative reconstructive technique. FINDINGS: Lung Bases: Unremarkable. Liver: Normal. No masses. Gallbladder/Bile Ducts: Unremarkable. Spleen: Normal. Pancreas: Normal. Adrenal Glands: Normal. Kidneys: 2 mm nonobstructing stone right kidney. No masses or hydronephrosis. Peritoneal Cavity/Bowel: No free air. Extensive confluent enlarged enhancing lymph nodes throughout the retroperitoneum with diffuse adjacent edema. Limited shotty mesenteric edema. Large and small bowel normal caliber. Dominant 3.3 x 2.5 x 3.3 cm solid rim-enhancing lesion right lower quadrant adjacent to the antimesenteric aspect of the normal-appearing cecum. Moderate amount of adjacent edema and a small amount of linear fluid in this region as well. The appendix and terminal ileum are normal. Pelvic Organs: No stones in the small caliber urinary bladder. Shotty pelvic sidewall adenopathy. No free fluid. Prostate of normal caliber. Linear stranding in the right inguinal canal. Shotty bilateral inguinal adenopathy. Vasculature: No aneurysms or other significant abnormality. Bones: Grade 1 spondylolisthesis L5-S1. No bony metastatic disease. Other: None. IMPRESSION: 1. Normal appendix. Normal terminal ileum. 2. Extensive abnormal retroperitoneal adenopathy with associated edema indicating active inflammatory or malignant process. 3. Dominant 3.3 x 3.3 x 2.5 cm mass or lymph node right lower quadrant, along the antimesenteric aspect of the normal-appearing cecum. Moderate amount of adjacent edema and small amount of linear fluid. 4. Grade 1 spondylolisthesis L5-S1. 5. Right nephrolithiasis. RADIA
[2018-05-12 15:53] VITALS: BP 142/96
--- NOTE | 2018-05-12 16:33 | CONSULTATION NOTE ---
Referring Provider Consult Date: 05/12/18 Chief Complaint - Chief Complaint Chief Complaint: Abdominal pain History of Present Illness - History of Present Illness HPI Comment/Other: This is a 62-year-old gentleman who presented to the emergency department today with a one-week history of increasing fatigue and right lower quadrant pain. He denies any associated nausea vomiting or diarrhea. He denies any recent weight loss. He has had chills at home but denies any fevers. He believes his last colonoscopy was approximately 20 years ago. He states his father had colon cancer diagnosed in his 80s. On evaluation in the emergency department his white blood cell count was noted to be elevated at 13. He underwent a CT scan of the abdomen and pelvis which was negative for acute appendicitis but does demonstrate a possible cecal mass and retroperitoneal adenopathy.Upon my evaluation of the patient he is resting in bed comfortably. He has mild abdominal pain not requiring narcotics.He denies any dark stools or blood in his stools. History - Past Medical History Cardiovascular: reports: None Respiratory: reports: None Endocrine/Autoimmune: reports: None GI: reports: GERD : reports: Other HEENT: reports: None Psych: reports: None Musculoskeletal: reports: Gout Derm: reports: Other MRSA Hx?: Yes - Past Surgical History General: reports: Colonoscopy Ortho: reports: Spine surgery Cardiovascular: reports: Vascular surgery, Angioplasty - Substance History Use: Uses substance without health or social issues: Amphetamine - POLST Patient has POLST: No POLST Status: Full Code Meds/Allgy - Home Medications Home Medications: Ambulatory Orders Medication Instructions Recorded Confirmed HYDROcod/ACETAM 5/325 [[place] 5/325] 1 - 2 ea PO Q6H PRN #15 tablet 05/12/18 - Allergies Allergies/Adverse Reactions: Allergies Allergy/AdvReac Type Severity Reaction Status Date / Time codeine [Codeine] Allergy Intermediate Rash Verified 03/29/18 20:21 Sulfa (Sulfonamide AdvReac Intermediate Emesis Verified 03/29/18 20:21 Antibiotics) Review of Systems - Constitutional Constitutional: reports: Fatigue. denies: Fever - Gastrointestinal Gastrointestinal: reports: Abdominal pain. denies: Constipation, Diarrhea, Change in bowel habits, Rectal bleeding, Black stools, Bloody stools, Nausea, Vomiting - Hematologic/Lymphatic Hematologic/Lymphatic: denies: Anemia Exam - Vital Signs Vital Signs: Vital Signs x48h Temp Pulse Resp BP Pulse Ox 05/12/18 15:53 92 18 142/96 H 96 05/12/18 13:21 36.6 C 93 16 143/101 H 97 05/12/18 11:28 36.7 C 88 18 130/106 H 100 - Physical Exam General Appearance: positive: No acute distress Respiratory: positive: No respiratory distress Cardiovascular: positive: Regular rate & rhythm Abdomen: positive: No distention, Other (slightly tender to palpation RLQ) Extremities: positive: No pedal edema Neurologic/Psychiatric: positive: Oriented x3 Conclusion/Plan - Diagnosis Diagnosis: Abdominal pain with CT scan finding of a possible cecal mass and associated retroperitoneal adenopathy. - Plan Plan: The patient will be discharged home and will follow-up with me in the office on Tuesday to schedule an elective colonoscopy. The differential diagnosis includes infectious etiology versus a colonic malignancy. The patient was instructed that if he develops worsening abdominal pain or blood in his stools he should return to the emergency department prior to Tuesday's visit. - Lab Results Fish Bones: 05/12/18 11:40 05/12/18 11:40
== END 2018-05-12 15:56 | disposition home or self-care (01) ==
LOC: EDUNIT# → SUPCPDRO 11:23 → ED 11:23
DX: K63.89 Other specified diseases of intestine (principal); N20.0 Calculus of kidney; R59.0 Localized enlarged lymph nodes
CPT/HCPCS: 36415; 74177; 80053; 83690; 85025; 96374; 99283; 99284; Q9967

== ENCOUNTER 2018-08-05 23:59 | Outpatient (CLI) | payer MEDICARE | END 2018-08-06 | disposition critical access hospital (66) | LOC: EMS 23:59 | PROVIDERS: ATTEND Surgery | DX: R52 Pain, unspecified (principal); R50.9 Fever, unspecified | CPT/HCPCS: A0425; A0429 ==

== ENCOUNTER 2018-08-06 00:16 | Emergency (ER) | payer MEDICARE ==
[2018-08-06 00:45] LABS: BASOPHILS # (AUTO) 0.2 10^3/uL (0.0-0.1); BASOPHILS % (AUTO) 1.2 %; EOSINOPHILS # (AUTO) 0.1 10^3/uL (0.0-0.7); EOSINOPHILS % (AUTO) 0.3 %; HGB - HEMOGLOBIN 11.4 g/dL (14.0-18.0); LYMPHOCYTES # (AUTO) 2.6 10^3/uL (1.5-3.5); LYMPHOCYTES % (AUTO) 16.4 %; MEAN CORPUSCULAR HEMOGLOBIN 26.1 pg (27.0-31.0); MEAN CORPUSCULAR HGB CONC 33.3 g/dL (32.0-36.0); MEAN CORPUSCULAR VOLUME 78.5 fL (80.0-94.0); MEAN PLATELET VOLUME 6.7 fL (7.4-11.4); MONOCYTES # (AUTO) 1.2 10^3/uL (0.0-1.0); MONOCYTES % (AUTO) 7.2 %; NEUTROPHILS # (AUTO) 12.1 10^3/uL (1.5-6.6); NEUTROPHILS % (AUTO) 74.9 %; PLT - PLATELET COUNT 421 10^3/uL (130-450); RED BLOOD COUNT 4.35 10^6/uL (4.70-6.10); WHITE BLOOD COUNT 16.1 x10^3/uL (4.8-10.8)
[2018-08-06 00:54] LABS: ALBUMIN 2.9 g/dL (3.2-5.5); ALBUMIN/GLOBULIN RATIO 0.7 (1.0-2.2); BILIRUBIN,TOTAL 0.8 mg/dL (0.2-1.0); CALCIUM 8.5 mg/dL (8.5-10.3); CREATININE 0.7 mg/dL (0.6-1.2); TOTAL PROTEIN 7.2 g/dL (6.7-8.2)
[2018-08-06] MEDS ORDERED: SODIUM CHLORIDE 0.9% 1,000 ML IV STA (01:03)
[2018-08-06 01:11] LABS: TROPONIN I < 0.04 ng/mL (<0.49)
[2018-08-06 01:14] LABS: CREATINE KINASE MB 0.6 ng/mL (0.6-6.3)
--- NOTE | 2018-08-06 01:23 | ED Physician Documentation ---
History of Present Illness - Stated complaint Stated Complaint: FEVER, TROUBLE MOVING - Chief complaint Chief Complaint: General - History obtained from History obtained from: Patient - History of Present Illness Timing: How many days ago (2) Pain level now: 5 Improved by: rest Worsened by: movement, exertion - Additonal information Additional information: c/o 2 days of generalized malaise, myalgias (worst in BUE), generalized weakness. says he has had fevers, although Tmax 100. mild generalized headache. Review of Systems Constitutional: reports: Fever, Myalgias, Fatigue. denies: Chills, Sweats Eyes: denies: Decreased vision, Photophobia Cardiac: reports: Reviewed and negative Respiratory: reports: Reviewed and negative GI: reports: Reviewed and negative : denies: Dysuria, Frequency Musculoskeletal: reports: Back pain (chronic) Neurologic: reports: Generalized weakness, Headache. denies: Focal weakness, Numbness PD PAST MEDICAL HISTORY - Past Medical History Cardiovascular: None Respiratory: None Endocrine/Autoimmune: None GI: GERD : Other HEENT: None Psych: None Musculoskeletal: Gout Derm: Other - Past Surgical History Past Surgical History: Yes General: Colonoscopy Ortho: Spine surgery Cardiovascular: Vascular surgery, Angioplasty - Present Medications Home Medications: Ambulatory Orders Medication Instructions Recorded Confirmed Hydrocodone/Acetaminophen 1 - 2 each PO Q6HR PRN #14 tablet 08/06/18 [Hydrocodon-Acetaminophen 5-325] - Allergies Allergies/Adverse Reactions: Allergies Allergy/AdvReac Type Severity Reaction Status Date / Time codeine [Codeine] Allergy Intermediate Rash Verified 08/06/18 00:19 Sulfa (Sulfonamide AdvReac Intermediate Emesis Verified 08/06/18 00:19 Antibiotics) - Social History Does the pt smoke?: No Smoking Status: Never smoker Does the pt drink ETOH?: No Does the pt have substance abuse?: No - Immunizations Immunizations are current?: Yes Immunizations: TDAP >10years/unknown - POLST Patient has POLST: No POLST Status: Full Code PD ED PE NORMAL - Vitals Vital signs reviewed: Yes - General General: Alert and oriented X 3, No acute distress, Well developed/nourished - HEENT HEENT: Pharynx benign, Other (tacky/pasty mucous membranes) - Neck Neck: Supple, no meningeal sign - Cardiac Cardiac: RRR, No murmur, No gallop, No rub - Respiratory Respiratory: No respiratory distress, Clear bilaterally - Abdomen Abdomen: Normal bowel sounds, Soft, Non tender, Non distended - Back Back: No CVA TTP - Derm Derm: Normal color, Warm and dry - Extremities Extremities: No tenderness to palpate, No edema, No calf tenderness / cord - Neuro Neuro: Alert and oriented X 3, audit intern 2-12 intact, No motor deficit, No sensory def icit, Normal speech Eye Opening: Spontaneous Motor: Obeys Commands Verbal: Oriented GCS Score: 15 Results - Vitals Vitals: Oxygen O2 Source Room air - Labs Labs: Microbiology 08/06/18 00:45 Blood Culture - Preliminary Blood NO GROWTH AFTER 2 DAYS 08/06/18 00:30 Blood Culture - Preliminary Blood NO GROWTH AFTER 2 DAYS Laboratory Tests 08/06/18 08/06/18 08/06/18 00:30 00:30 00:30 WBC 16.1 H RBC 4.35 L Hgb 11.4 L Hct 34.2 L MCV 78.5 L MCH 26.1 L MCHC 33.3 RDW 18.0 H Plt Count 421 MPV 6.7 L Neut # (Auto) 12.1 H Lymph # (Auto) 2.6 [place] # (Auto) 1.2 H Eos # (Auto) 0.1 Baso # (Auto) 0.2 H Absolute Nucleated RBC 0.00 Nucleated RBC % 0.0 Sodium 134 L Potassium 4.1 Chloride 98 L Carbon Dioxide 26 Anion Gap 10.0 BUN 11 Creatinine 0.7 Estimated GFR (MDRD) 114 Glucose 122 H Lactic Acid 1.1 Calcium 8.5 Total Bilirubin 0.8 AST 14 ALT 12 Alkaline Phosphatase 98 Total Creatine Kinase CK-MB (CK-2) Troponin I Total Protein 7.2 Albumin 2.9 L Globulin 4.3 H Albumin/Globulin Ratio 0.7 L Lipase 20 L Urine Color Urine Clarity Urine pH Ur Specific [place] Urine Protein Urine Glucose (UA) Urine Ketones Urine Occult Blood Urine Nitrite Urine Bilirubin Urine Urobilinogen Ur Leukocyte Esterase Ur Microscopic Review Influenza A (Rapid) Influenza B (Rapid) 08/06/18 08/06/18 08/06/18 00:30 00:30 01:00 PST WBC RBC Hgb Hct MCV MCH MCHC RDW Plt Count MPV Neut # (Auto) Lymph # (Auto) [place] # (Auto) Eos # (Auto) Baso # (Auto) Absolute Nucleated RBC Nucleated RBC % Sodium Potassium Chloride Carbon Dioxide Anion Gap BUN Creatinine Estimated GFR (MDRD) Glucose Lactic Acid Calcium Total Bilirubin AST ALT Alkaline Phosphatase Total Creatine Kinase 15 L CK-MB (CK-2) 0.6 Troponin I < 0.04 Total Protein Albumin Globulin Albumin/Globulin Ratio Lipase Urine Color Urine Clarity Urine pH Ur Specific [place] Urine Protein Urine Glucose (UA) Urine Ketones Urine Occult Blood Urine Nitrite Urine Bilirubin Urine Urobilinogen Ur Leukocyte Esterase Ur Microscopic Review Influenza A (Rapid) Negative Influenza B (Rapid) Negative 08/06/18 01:05 PST WBC RBC Hgb Hct MCV MCH MCHC RDW Plt Count MPV Neut # (Auto) Lymph # (Auto) [place] # (Auto) Eos # (Auto) Baso # (Auto) Absolute Nucleated RBC Nucleated RBC % Sodium Potassium Chloride Carbon Dioxide Anion Gap BUN Creatinine Estimated GFR (MDRD) Glucose Lactic Acid Calcium Total Bilirubin AST ALT Alkaline Phosphatase Total Creatine Kinase CK-MB (CK-2) Troponin I Total Protein Albumin Globulin Albumin/Globulin Ratio Lipase Urine Color YELLOW Urine Clarity CLEAR Urine pH 7.0 Ur Specific [place] 1.010 Urine Protein NEGATIVE Urine Glucose (UA) NEGATIVE Urine Ketones NEGATIVE Urine Occult Blood NEGATIVE Urine Nitrite NEGATIVE Urine Bilirubin NEGATIVE Urine Urobilinogen 0.2 (NORMAL) Ur Leukocyte Esterase NEGATIVE Ur Microscopic Review NOT INDICATED Influenza A (Rapid) Influenza B (Rapid) PD MEDICAL DECISION MAKING - ED course Complexity details: reviewed old records, reviewed results, re-evaluated patient, considered differential, d/w patient ED course: vague, mostly constitutional symptoms. several abnormalities on blood tests, but they are mild, nondiagnostic, and basically noncontributory at this time. leukocytosis noted, although his previous records indicate he frequently has elevated WBC. His current illness is s/o viral illness (although differential is not limited to this), and thus mild leukocytosis is unsurprising. after tests resulted and discussed, he says he feels well enough to go home, albeit remains achy and has some generalized weakness and malaise. instructed to return if worse in any way, and f/u with PMD next available appointment Departure - Departure Disposition: 01 Home, Self Care Clinical Impression: Generalized muscle ache, Muscle weakness Condition: Good Instructions: ED Muscle Aching, NARCOTIC, Oral, ED Weakness UKO Follow-Up: Angela Perkins ARNP [Primary Care Provider] - Within 3 Days Prescriptions: Hydrocodone/Acetaminophen [Hydrocodon-Acetaminophen 5-325] 1 - 2 each PO Q6HR PRN #14 tablet PRN Reason: Pain Discharge Date/Time: 08/06/18 05:10
[2018-08-06] MEDS ORDERED: ACETAMINOPHEN 325 MG TABLET PO STA (01:48)
[2018-08-06 01:56] LABS: BILIRUBIN,URINE NEGATIVE (NEGATIVE); GLUCOSE, URINE (UA) NEGATIVE (NEGATIVE); KETONES,URINE (UA) NEGATIVE (NEGATIVE); LEUKOCYTE ESTERASE, URINE NEGATIVE (NEGATIVE); NITRITE,URINE NEGATIVE (NEGATIVE); OCCULT BLOOD,URINE NEGATIVE (NEGATIVE); PROTEIN,URINE NEGATIVE (NEGATIVE); UROBILINOGEN,URINE 0.2 (NORMAL) E.U./dL (NORMAL)
[2018-08-06 01:57] LABS: CLARITY,URINE CLEAR (CLEAR)
[2018-08-06] MEDS ORDERED: oxyCODONE 5 MG TABLET PO STA (03:49)
[2018-08-06 05:05] VITALS: BP 117/82
== END 2018-08-06 05:10 | disposition home or self-care (01) ==
LOC: EDUNIT# → ED 00:16
DX: M79.10 Myalgia, unspecified site (principal); M10.9 Gout, unspecified; Z79.891 Long term (current) use of opiate analgesic; Z98.61 Coronary angioplasty status
CPT/HCPCS: 36415; 80048; 80053; 81003; 82550; 82553; 83605; 83690; 84484; 85025; 87040; 87275; 87276; 96360; 99283; A9270; 81001; 87086

== ENCOUNTER 2018-08-14 10:51 | Outpatient (CLI) | payer MEDICARE ==
[2018-08-14 17:37] LABS: BASOPHILS % (AUTO) 0.5 %; EOSINOPHILS # (AUTO) 0.1 10^3/uL (0.0-0.7); EOSINOPHILS % (AUTO) 0.6 %; HGB - HEMOGLOBIN 11.6 g/dL (14.0-18.0); LYMPHOCYTES # (AUTO) 2.4 10^3/uL (1.5-3.5); LYMPHOCYTES % (AUTO) 23.2 %; MEAN CORPUSCULAR HEMOGLOBIN 26.3 pg (27.0-31.0); MEAN CORPUSCULAR HGB CONC 33.1 g/dL (32.0-36.0); MEAN CORPUSCULAR VOLUME 79.4 fL (80.0-94.0); MONOCYTES # (AUTO) 0.7 10^3/uL (0.0-1.0); MONOCYTES % (AUTO) 7.1 %; NEUTROPHILS # (AUTO) 7.1 10^3/uL (1.5-6.6); NEUTROPHILS % (AUTO) 68.6 %; PLT - PLATELET COUNT 589 10^3/uL (130-450); RED CELL DISTRIBUTION WIDTH 17.2 % (12.0-15.0); WHITE BLOOD COUNT 10.4 x10^3/uL (4.8-10.8)
[2018-08-14 17:45] LABS: ALBUMIN 3.1 g/dL (3.2-5.5); ALBUMIN/GLOBULIN RATIO 0.6 (1.0-2.2); BILIRUBIN,TOTAL 0.7 mg/dL (0.2-1.0); CALCIUM 9.3 mg/dL (8.5-10.3); TOTAL PROTEIN 8.2 g/dL (6.7-8.2)
[2018-08-14 17:57] LABS: THYROID STIMULATING HORMONE 0.75 uIU/mL (0.34-5.60)
[2018-08-14 17:59] LABS: FREE T4 (FREE THYROXINE) 0.82 ng/dL (0.58-1.64)
== END 2018-08-14 10:52 | disposition home or self-care (01) ==
LOC: LAB.S 10:51
PROVIDERS: ATTEND Nurse Practitioner Family
DX: R53.83 Other fatigue (principal); R07.0 Pain in throat
CPT/HCPCS: 36415; 80053; 84439; 84443; 85025

== ENCOUNTER 2018-08-20 09:38 | Outpatient (CLI) | payer MEDICARE | END 2018-08-20 09:39 | disposition critical access hospital (66) | LOC: EMS 09:38 | PROVIDERS: ATTEND Surgery | DX: R52 Pain, unspecified (principal) ==

== ENCOUNTER 2018-08-20 09:55 | Emergency (ER) | payer MEDICARE ==
[2018-08-20] MEDS ORDERED: DEXAMETHASONE 10 MG/ML VIAL IVP STA (10:12)
--- NOTE | 2018-08-20 10:14 | ED Physician Documentation ---
History of Present Illness - Stated complaint Stated Complaint: PAIN - Chief complaint Chief Complaint: General - History obtained from History obtained from: Patient - History of Present Illness Timing: Other (This is a 62-year-old gentleman with history of gout who for the last 4 days has had inexplicable and body wide joint pain that is much worse with motion. He is never had this much in the way of joint pain before. He complains that all of his fingers and his elbows his shoulders his knees and ankles hurt. He denies fevers or chills with it. He has been on allopurinol in the past but has not been on and out in about a year. Of note I saw him in May, he had a colonic mass on CT. He followed up for colonoscopy but had failed to do any sort of colon prep and has been lost to follow-up because of it since then.) Review of Systems Ten Systems: 10 systems reviewed and negative Constitutional: denies: Fever, Chills, Fatigue GI: denies: Abdominal Pain, Nausea, Vomiting, Constipation, Diarrhea, Bloody / black stool PD PAST MEDICAL HISTORY - Past Medical History Cardiovascular: None Respiratory: None Endocrine/Autoimmune: None GI: GERD : Other HEENT: None Psych: None Musculoskeletal: Gout Derm: Other - Past Surgical History Past Surgical History: Yes General: Colonoscopy Ortho: Spine surgery Cardiovascular: Vascular surgery, Angioplasty - Present Medications Home Medications: Ambulatory Orders Medication Instructions Recorded Confirmed Hydrocodone/Acetaminophen 1 - 2 each PO Q6HR PRN #14 tablet 08/06/18 [Hydrocodon-Acetaminophen 5-325] Colchicine [Colcrys] 0.6 mg PO BID #6 tablet 08/20/18 Hydrocodone/Acetaminophen 1 each PO Q4H PRN #10 tablet 08/20/18 [Hydrocodon-Acetaminophen 5-325] Indomethacin [Indocin] 25 mg PO BIDWM #10 capsule 08/20/18 predniSONE [Deltasone] 20 mg PO [id number] #21 tab 08/20/18 - Allergies Allergies/Adverse Reactions: Allergies Allergy/AdvReac Type Severity Reaction Status Date / Time codeine [Codeine] Allergy Intermediate Rash Verified 08/06/18 00:19 Sulfa (Sulfonamide AdvReac Intermediate Emesis Verified 08/06/18 00:19 Antibiotics) - Social History Does the pt smoke?: No Smoking Status: Never smoker Does the pt drink ETOH?: No Does the pt have substance abuse?: No - Immunizations Immunizations are current?: Yes Immunizations: TDAP >10years/unknown - POLST Patient has POLST: No POLST Status: Full Code PD ED PE NORMAL - Vitals Vital signs reviewed: Yes - General General: Alert and oriented X 3, No acute distress - HEENT HEENT: PERRL, EOMI - Neck Neck: Supple, no meningeal sign, No bony TTP - Cardiac Cardiac: RRR, No murmur - Respiratory Respiratory: No respiratory distress, Clear bilaterally - Abdomen Abdomen: Normal bowel sounds, Soft, Non tender - Back Back: No CVA TTP, No spinal TTP - Derm Derm: Normal color, Warm and dry, No rash - Extremities Extremities: Other (He does have diffusely tender joints, some of them are swollen including the left wrist, right ankle, right second MCP. It hurts to move any major joint for the most part. None of them are warm or cellulitic though.) - Neuro Neuro: Alert and oriented X 3, Normal speech Results - Vitals Vitals: Vital Signs - 24 hr 08/20/18 09:59 Temperature 36.4 C L Heart Rate 102 H Respiratory 19 Rate Blood Pressure 136/78 H O2 Saturation 99 Oxygen O2 Source Room air - Labs Labs: Laboratory Tests 08/20/18 08/20/18 08/20/18 10:25 10:25 10:25 WBC 14.7 H RBC 4.06 L Hgb 10.5 L Hct 31.5 L MCV 77.7 L MCH 26.0 L MCHC 33.5 RDW 17.1 H Plt Count 645 H MPV 6.2 L Neut # (Auto) 11.4 H Lymph # (Auto) 2.1 [place] # (Auto) 1.1 H Eos # (Auto) 0.0 Baso # (Auto) 0.1 Absolute Nucleated RBC 0.01 Nucleated RBC % 0.1 ESR > 140 H Sodium 129 L Potassium 4.4 Chloride 94 L Carbon Dioxide 24 Anion Gap 11.0 BUN 24 H Creatinine 1.0 Estimated GFR (MDRD) 75 L Glucose 121 H Uric Acid Calcium 9.0 Total Bilirubin 1.0 AST 14 ALT 12 Alkaline Phosphatase 110 C-Reactive Protein Total Protein 7.8 Albumin 2.8 L Globulin 5.0 H Albumin/Globulin Ratio 0.6 L Lipase 20 L 08/20/18 10:25 WBC RBC Hgb Hct MCV MCH MCHC RDW Plt Count MPV Neut # (Auto) Lymph # (Auto) [place] # (Auto) Eos # (Auto) Baso # (Auto) Absolute Nucleated RBC Nucleated RBC % ESR Sodium Potassium Chloride Carbon Dioxide Anion Gap BUN Creatinine Estimated GFR (MDRD) Glucose Uric Acid 9.7 H Calcium Total Bilirubin AST ALT Alkaline Phosphatase C-Reactive Protein 31.3 H Total Protein Albumin Globulin Albumin/Globulin Ratio Lipase PD MEDICAL DECISION MAKING - ED course ED course: 62-year-old gentleman with history of gout presents with an acute polyarthralgia. He is very elevated inflammatory markers. No clinical evidence of infection otherwise though. He was feeling better after IV steroids. He d eclined IV narcotic analgesia here. Results were reviewed. In the past he has had bad reactions to allopurinol. Now is not the time to start it anyway. He is placed on anti-inflammatories, steroid, and colchicine. Follow-up with his primary care physician for referral to rheumatology and repeat referral for the necessary colonoscopy were discussed. Departure - Departure Disposition: Home, Self Care Clinical Impression: Gout, Polyarthralgia Condition: Good Record reviewed to determine appropriate education?: Yes Instructions: ANTI-INFLAMMATORY, General Follow-Up: James Hernandez MD [Credentialed Staff Provider] - Within 1 week Afshin Pena MD [Provider Admit Priv/Credential] - Within 1 week Prescriptions: Colchicine [Colcrys] 0.6 mg PO BID #6 tablet Hydrocodone/Acetaminophen [Hydrocodon-Acetaminophen 5-325] 1 each PO Q4H PRN #10 tablet PRN Reason: Pain Indomethacin [Indocin] 25 mg PO BIDWM #10 capsule predniSONE [Deltasone] 20 mg PO [id number] #21 tab Comments: Follow-up with your primary care physician, discuss rheumatology referral for your polyarthralgia. In the meantime the meds should make it better. As discussed, he also need to follow-up with the surgery team, he still need that colonoscopy to workup what is potentially a cancerous lesion in your colon identified 2 months ago. Your blood pressure was elevated today on check into the emergency department. This does not mean that you have hypertension, it is a common phenomenon to come to the emergency department and have elevated blood pressure. I recommend that you see your primary care physician within the week to have it rechecked when you are feeling better.
[2018-08-20] MEDS: HYDROmorphone 2 MG/ML VIAL IVP STA ×2 (10:29→11:32)
[2018-08-20 10:31] LABS: BASOPHILS # (AUTO) 0.1 10^3/uL (0.0-0.1); BASOPHILS % (AUTO) 0.5 %; EOSINOPHILS % (AUTO) 0.1 %; HGB - HEMOGLOBIN 10.5 g/dL (14.0-18.0); LYMPHOCYTES # (AUTO) 2.1 10^3/uL (1.5-3.5); LYMPHOCYTES % (AUTO) 14.4 %; MEAN CORPUSCULAR HGB CONC 33.5 g/dL (32.0-36.0); MEAN CORPUSCULAR VOLUME 77.7 fL (80.0-94.0); MEAN PLATELET VOLUME 6.2 fL (7.4-11.4); MONOCYTES # (AUTO) 1.1 10^3/uL (0.0-1.0); MONOCYTES % (AUTO) 7.7 %; NEUTROPHILS # (AUTO) 11.4 10^3/uL (1.5-6.6); NEUTROPHILS % (AUTO) 77.3 %; PLT - PLATELET COUNT 645 10^3/uL (130-450); RED BLOOD COUNT 4.06 10^6/uL (4.70-6.10); RED CELL DISTRIBUTION WIDTH 17.1 % (12.0-15.0); WHITE BLOOD COUNT 14.7 x10^3/uL (4.8-10.8)
[2018-08-20 10:46] LABS: ALBUMIN 2.8 g/dL (3.2-5.5); ALBUMIN/GLOBULIN RATIO 0.6 (1.0-2.2); TOTAL PROTEIN 7.8 g/dL (6.7-8.2)
[2018-08-20 11:04] LABS: CRP - C-REACTIVE PROTEIN 31.3 mg/dL (0-1.0)
[2018-08-20 11:24] LABS: URIC ACID 9.7 mg/dL (2.6-7.2)
[2018-08-20] MEDS ORDERED: COLCHICINE 0.6 MG TABLET PO STA (11:36)
[2018-08-20] MEDS ORDERED: KETOROLAC 15 MG/ML VIAL IVP STA (11:36)
[2018-08-20 12:44] VITALS: BP 104/74
== END 2018-08-20 12:47 | disposition home or self-care (01) ==
LOC: EDUNIT# → ED 09:55
DX: M10.9 Gout, unspecified (principal); M25.542 Pain in joints of left hand; M25.541 Pain in joints of right hand; M25.522 Pain in left elbow; M25.521 Pain in right elbow; M25.512 Pain in left shoulder; M25.511 Pain in right shoulder; M25.561 Pain in right knee; M25.562 Pain in left knee; M25.572 Pain in left ankle and joints of left foot; M25.571 Pain in right ankle and joints of right foot; R03.0 Elevated blood-pressure reading, without diagnosis of hypertension; K63.89 Other specified diseases of intestine
CPT/HCPCS: 36415; 80053; 83690; 84550; 85025; 85651; 86140; 96374; 96375; 99283; A9270; J1170

== ENCOUNTER 2018-08-25 12:48 | Emergency (ER) | payer MEDICARE ==
[2018-08-25 13:29] VITALS: BP 121/91
[2018-08-25 14:14] LABS: BASOPHILS # (AUTO) 0.1 10^3/uL (0.0-0.1); BASOPHILS % (AUTO) 1.2 %; EOSINOPHILS # (AUTO) 0.2 10^3/uL (0.0-0.7); EOSINOPHILS % (AUTO) 1.6 %; HGB - HEMOGLOBIN 11.2 g/dL (14.0-18.0); LYMPHOCYTES # (AUTO) 3.5 10^3/uL (1.5-3.5); LYMPHOCYTES % (AUTO) 27.9 %; MEAN CORPUSCULAR HGB CONC 32.9 g/dL (32.0-36.0); MEAN CORPUSCULAR VOLUME 79.3 fL (80.0-94.0); MEAN PLATELET VOLUME 6.8 fL (7.4-11.4); MONOCYTES # (AUTO) 0.6 10^3/uL (0.0-1.0); MONOCYTES % (AUTO) 5.1 %; NEUTROPHILS % (AUTO) 64.2 %; PLT - PLATELET COUNT 759 10^3/uL (130-450); RED BLOOD COUNT 4.32 10^6/uL (4.70-6.10); RED CELL DISTRIBUTION WIDTH 17.3 % (12.0-15.0); WHITE BLOOD COUNT 12.5 x10^3/uL (4.8-10.8)
[2018-08-25 14:29] LABS: ALBUMIN 3.2 g/dL (3.2-5.5); ALBUMIN/GLOBULIN RATIO 0.7 (1.0-2.2); BILIRUBIN,TOTAL 0.4 mg/dL (0.2-1.0); CREATININE 0.9 mg/dL (0.6-1.2); TOTAL PROTEIN 7.9 g/dL (6.7-8.2)
--- NOTE | 2018-08-25 15:20 | ED Physician Documentation ---
History of Present Illness - Stated complaint Stated Complaint: WEAKNESS - Chief complaint Chief Complaint: General - History obtained from History obtained from: Patient - History of Present Illness Timing: Other (62-year-old gentleman who I saw a couple of months ago. Was diagnosed with a colonic mass but lost to follow-up and failed to do the prep for the colonoscopy. He has not rescheduled it yet. I also saw more recently for diffuse joint pains. He has a history of gout and his uric acid as well as his inflammatory markers were high. That somewhat better after the meds that we gave him, colchicine, prednisone, and anti-inflammatories. He comes in today thinking that the long-term weakness he has been having for the last several months might be related to minor trauma he had in his right thigh that he might have persistent internal bleeding there despite lack of any swelling.) Review of Systems Constitutional: reports: Fatigue. denies: Fever, Chills Cardiac: denies: Chest pain / pressure, Palpitations Respiratory: denies: Dyspnea, Cough GI: denies: Abdominal Pain, Nausea, Vomiting, Diarrhea, Bloody / black stool PD PAST MEDICAL HISTORY - Past Medical History Cardiovascular: None Respiratory: None Endocrine/Autoimmune: None GI: GERD : Other HEENT: None Psych: None Musculoskeletal: Gout Derm: Other - Past Surgical History Past Surgical History: Yes General: Colonoscopy Ortho: Spine surgery Cardiovascular: Vascular surgery, Angioplasty - Allergies Allergies/Adverse Reactions: Allergies Allergy/AdvReac Type Severity Reaction Status Date / Time codeine [Codeine] Allergy Intermediate Rash Verified 08/25/18 13:29 Sulfa (Sulfonamide AdvReac Intermediate Emesis Verified 08/25/18 13:29 Antibiotics) - Social History Does the pt smoke?: No Smoking Status: Never smoker Does the pt drink ETOH?: No Does the pt have substance abuse?: No - Immunizations Immunizations are current?: Yes Immunizations: TDAP >10years/unknown - POLST Patient has POLST: No POLST Status: Full Code PD ED PE NORMAL - Vitals Vital signs reviewed: Yes - General General: Alert and oriented X 3, No acute distress - Respiratory Respiratory: No respiratory distress, Clear bilaterally - Abdomen Abdomen: Normal bowel sounds, Soft, Non tender - Extremities Extremities: Other (There is no asymmetry or tenderness of the thighs.) - Neuro Neuro: Alert and oriented X 3, Normal speech Results - Vitals Vitals: Vital Signs - 24 hr 08/25/18 13:21 Temperature 36.8 C Heart Rate 93 Respiratory 16 Rate Blood Pressure 121/91 H O2 Saturation 100 Oxygen O2 Source Room air - EKG (time done) 1344 Rate: Rate (enter#) (88) Rhythm: NSR [place]: Normal Intervals: Normal PA QRS: Normal Ischemia: Normal ST segments Computer interpretation: Agree with computer - Labs Labs: Laboratory Tests 08/25/18 08/25/18 08/25/18 14:06 14:06 14:06 WBC 12.5 H RBC 4.32 L Hgb 11.2 L Hct 34.2 L MCV 79.3 L MCH 26.0 L MCHC 32.9 RDW 17.3 H Plt Count 759 H MPV 6.8 L Neut # (Auto) 8.0 H Lymph # (Auto) 3.5 [place] # (Auto) 0.6 Eos # (Auto) 0.2 Baso # (Auto) 0.1 Absolute Nucleated RBC 0.00 Nucleated RBC % 0.0 Sodium 137 Potassium 3.8 Chloride 100 L Carbon Dioxide 26 Anion Gap 11.0 BUN 25 H Creatinine 0.9 Estimated GFR (MDRD) 85 L Glucose 103 H Calcium 9.0 Total Bilirubin 0.4 AST 20 ALT 18 Alkaline Phosphatase 96 Troponin I < 0.04 Total Protein 7.9 Albumin 3.2 Globulin 4.7 H Albumin/Globulin Ratio 0.7 L Lipase 28 - Rads (name of study) R femur Radiology: EMP read contemporaneously (Bone island versus sclerotic lesion in the intertrochanteric region needing follow-up.) PD MEDICAL DECISION MAKING - ED course ED course: 62-year-old gentleman with likely diagnosis of colon cancer who has been lost to follow-up presents with ongoing weakness and he just realized that he may have internal bleeding in his thigh from a remote trauma. Clinically this is not evident. Given the circumstances it actually be more concerned about bony metastases from what is likely primary colon cancer that he is yet to finish the workup for. X-ray does show concern for possible metastatic disease in the hip. I will call his physician to expedite follow-up and he will call them on Tuesday as he will need an MRI Or bone scan as an outpatient. Spoke with Cristopher Bueno at [facility] who will F/U with him Departure - Departure Disposition: 01 Home, Self Care Clinical Impression: Polyarthralgia, Cecum mass, Bone mass Condition: Good Record reviewed to determine appropriate education?: Yes Comments: As discussed, you do have a concerning bone mass near the right hip needing further workup. Follow-up with Anushka Bueno on Tuesday, you will need either an MRI or whole body bone scan. As discussed you also still need to follow-up for the colonoscopy.
--- NOTE | 2018-08-25 16:20 | XRAY Report ---
Reason: leg pain s/p remote trauma Procedure Date: 08/25/2018 Accession Number: [id number] / [id number] Procedure: XR - Femur 2V RT CPT Code: FULL RESULT: EXAM: RIGHT FEMUR RADIOGRAPHY EXAM DATE: 08/25/2018 03:59 PM. CLINICAL HISTORY: Leg pain s/p remote trauma. COMPARISON: None. TECHNIQUE: 2 views. FINDINGS: Bones: Ill-defined areas of sclerosis in the intertrochanteric region, possibly atypical bone island. No fracture or other bone lesion. Joints: Moderate degenerative changes of the knee and hip. No definite effusion. Soft Tissues: Prepatellar soft tissue swelling. IMPRESSION: 1. Soft tissue swelling. 2. Intertrochanteric sclerosis, bone island versus other sclerotic lesion. If there is clinical suspicion of metastatic disease, further evaluation with whole body radionuclide bone scan or MR scan may be helpful. RADIA
[2018-08-25 16:21] LABS: MUDS CUTOFF CONCENTRATIONS CUTOFF CONC BELOW:
[2018-08-25 16:32] LABS: BILIRUBIN,URINE NEGATIVE (NEGATIVE); GLUCOSE, URINE (UA) NEGATIVE (NEGATIVE); KETONES,URINE (UA) NEGATIVE (NEGATIVE); LEUKOCYTE ESTERASE, URINE NEGATIVE (NEGATIVE); NITRITE,URINE NEGATIVE (NEGATIVE); OCCULT BLOOD,URINE NEGATIVE (NEGATIVE); PROTEIN,URINE NEGATIVE (NEGATIVE); UROBILINOGEN,URINE 0.2 (NORMAL) E.U./dL (NORMAL)
[2018-08-25 16:33] LABS: CLARITY,URINE CLEAR (CLEAR)
[2018-08-25 16:42] LABS: AMPHETAMINE SCREEN,URINE POSITIVE (NEGATIVE); BENZODIAZEPINES SCREEN, URINE NEGATIVE (NEGATIVE); COCAINE SCREEN URINE NEGATIVE (NEGATIVE); METHADONE SCREEN, URINE POSITIVE (NEGATIVE); METHAMPHETAMINES SCREEN, URINE POSITIVE (NEGATIVE); OPIATE SCREEN, URINE POSITIVE (NEGATIVE); OXYCODONE SCREEN, URINE NEGATIVE (NEGATIVE); PROPOXYPHENE SCREEN, URINE NEGATIVE (NEGATIVE); TRICYCLIC ANTIDEPRESSANT,URINE NEGATIVE (NEGATIVE)
== END 2018-08-25 16:40 | disposition home or self-care (01) ==
LOC: ED 12:48
DX: M25.50 Pain in unspecified joint (principal); K63.89 Other specified diseases of intestine; M85.9 Disorder of bone density and structure, unspecified
CPT/HCPCS: 36415; 80053; 80306; 81001; 81003; 83690; 84484; 85025; 87086; 93005; 99283

== ENCOUNTER 2018-08-26 12:52 | Outpatient (CLI) | payer MEDICARE | END 2018-08-26 12:53 | disposition EMS.NT | LOC: EMS 12:52 | PROVIDERS: ATTEND Surgery | DX: R47.81 Slurred speech (principal) ==

== ENCOUNTER 2018-09-01 21:03 | Outpatient (CLI) | payer MEDICARE ==
--- NOTE | 2018-09-02 04:18 | Ultrasound Report ---
Reason: US.THYROID Procedure Date: 09/01/2018 Accession Number: [id number] / [id number] Procedure: US - Head or Neck Soft Tissue CPT Code: FULL RESULT: EXAM: THYROID ULTRASOUND EXAM DATE: 09/01/2018 09:31 PM. CLINICAL HISTORY: US. THYROID. COMPARISON: None. TECHNIQUE: Real time sonographic imaging of the thyroid was performed by the director heart. Multiple medical field representative static images were saved for review. FINDINGS: THYROID GLAND: Right Lobe: 4.5 x 1.6 x 1.7 cm, volume 6.6 cc. Normal background echotexture. Right Lobe Nodules: None. Left Lobe: 4.1 x 1.1 x 1.5 cm, volume 3.5 cc. Normal background echotexture. Left Lobe Nodules: There is a small cyst along the peripheral upper aspect of the left lobe measuring 4 mm x 3 mm x 3 mm. There is another cyst along the medial aspect of the left lobe close to the isthmus measuring 3 mm x 2 mm x 2 mm. Isthmus: 0.4 cm AP. Isthmic Nodules: None. LYMPH NODES: There is one lymph node in the left side of the neck at station 3 measuring 10 mm in short axis diameter. OTHER: None. IMPRESSION: 1. 2 small cysts in the left lobe of the thyroid. 2. Borderline sized left-sided lymph node significance uncertain. RADIA
== END 2018-09-01 21:04 | disposition home or self-care (01) ==
LOC: DI 21:03
PROVIDERS: ATTEND Nurse Practitioner Family
DX: E04.1 Nontoxic single thyroid nodule (principal); R07.0 Pain in throat; R53.83 Other fatigue
CPT/HCPCS: 76536

== ENCOUNTER 2018-09-06 11:06 | Outpatient (CLI) | payer MEDICARE ==
[2018-09-06] MEDS: BUFFERED LIDOCAINE 10 ML SYRINGE IU ONE (13:26)
--- NOTE | 2018-09-06 14:51 | Ultrasound Report ---
Reason: RLQ ABDOMINAL MASS Procedure Date: 09/06/2018 Accession Number: [id number] / [id number] Procedure: US - Needle Bx Lymph Node CPT Code: FULL RESULT: PROCEDURE: ULTRASOUND-GUIDED BIOPSY PREOPERATIVE DIAGNOSIS: Mass in right pelvic retroperitoneum, possibly malignant. POSTOPERATIVE DIAGNOSIS: Same TECHNIQUE: Following written and oral informed consent including procedure risks and alternatives, the patient was brought to the ultrasound suite and positioned. Using local anesthesia, sterile technique, and direct ultrasound control, a guiding needle was advanced to the mass. A total of 6 core samples were obtained. Once the pathologist indicated sufficient material was present, the guiding needle was removed. The patient tolerated the procedure well and there were no immediate complications. ANESTHESIA: Local only. BUILDING RIGGER: Dr. Syed. ESTIMATED BLOOD LOSS: Minimal FLUOROSCOPY TIME: None. COMPLICATIONS: None. CONDITION: Good. SPECIMEN: 18 Gauge core biopsy x 6. IMPLANTS: None. FINDINGS: Real-time ultrasound performed with static images saved to the PACS demonstrating the needle directed into the mass. IMPRESSION: Uncomplicated ultrasound guided biopsy as described. Pathology results will be reported separately. RADIA
== END 2018-09-06 11:07 | disposition home or self-care (01) ==
LOC: DI 11:06
PROVIDERS: ATTEND Nurse Practitioner Family
DX: C77.5 Secondary and unspecified malignant neoplasm of intrapelvic lymph nodes (principal)
CPT/HCPCS: 38505

== ENCOUNTER 2018-09-13 17:57 | Emergency (ER) | payer MEDICARE ==
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
[2018-09-13] MEDS ORDERED: SODIUM CHLORIDE 0.9% 1,000 ML IV ONE ×2 (19:29→21:10)
[2018-09-13] MEDS ORDERED: DEXAMETHASONE 10 MG/ML VIAL IVP STA (19:30)
[2018-09-13] MEDS ORDERED: KETOROLAC 30 MG/ML VIAL IVP STA (19:30)
[2018-09-13] MEDS ORDERED: MORPHINE 2 MG/ML CARPUJECT IVP STA (19:31)
[2018-09-13 20:06] LABS: BASOPHILS % (AUTO) 0.4 %; EOSINOPHILS % (AUTO) 0.3 %; HGB - HEMOGLOBIN 11.3 g/dL (14.0-18.0); LYMPHOCYTES # (AUTO) 2.1 10^3/uL (1.5-3.5); LYMPHOCYTES % (AUTO) 17.9 %; MEAN CORPUSCULAR HEMOGLOBIN 26.1 pg (27.0-31.0); MEAN CORPUSCULAR HGB CONC 32.6 g/dL (32.0-36.0); MEAN CORPUSCULAR VOLUME 80.1 fL (80.0-94.0); MEAN PLATELET VOLUME 6.6 fL (7.4-11.4); MONOCYTES # (AUTO) 0.8 10^3/uL (0.0-1.0); MONOCYTES % (AUTO) 6.4 %; NEUTROPHILS # (AUTO) 8.8 10^3/uL (1.5-6.6); PLT - PLATELET COUNT 472 10^3/uL (130-450); RED BLOOD COUNT 4.35 10^6/uL (4.70-6.10); RED CELL DISTRIBUTION WIDTH 18.9 % (12.0-15.0); WHITE BLOOD COUNT 11.7 x10^3/uL (4.8-10.8)
[2018-09-13 20:19] LABS: ALBUMIN 3.1 g/dL (3.2-5.5); ALBUMIN/GLOBULIN RATIO 0.9 (1.0-2.2); BILIRUBIN,TOTAL 0.4 mg/dL (0.2-1.0); CREATININE 0.8 mg/dL (0.6-1.2); MAGNESIUM 1.6 mg/dL (1.7-2.8); TOTAL PROTEIN 6.7 g/dL (6.7-8.2)
[2018-09-13] MEDS ORDERED: HYDROmorphone 1 MG/ML CARPUJECT IVP STA (21:10)
[2018-09-13 22:26] VITALS: BP 173/92
== END 2018-09-13 22:28 | disposition home or self-care (01) ==
LOC: ED 17:57
DX: R53.1 Weakness (principal); M54.9 Dorsalgia, unspecified; I10 Essential (primary) hypertension
CPT/HCPCS: 36415; 80053; 83690; 83735; 84443; 85025; 85651; 96361; 96374; 96375; 99283; J1170

== ENCOUNTER 2018-10-03 02:48 | Outpatient (CLI) | payer MEDICARE | END 2018-10-03 02:49 | disposition critical access hospital (66) | LOC: EMS 02:48 | PROVIDERS: ATTEND Surgery | DX: R52 Pain, unspecified (principal) | CPT/HCPCS: A0425; A0427 ==

== ENCOUNTER 2018-10-03 03:05 | Inpatient (IN) | payer MEDICARE ==
[2018-10-03] MEDS ORDERED: ONDANSETRON 4 MG/2 ML VIAL IVP STA (03:19)
[2018-10-03] MEDS ORDERED: MORPHINE 2 MG/ML CARPUJECT IVP STA (03:19)
[2018-10-03] MEDS ORDERED: KETOROLAC 30 MG/ML VIAL IVP STA (03:21)
--- NOTE | 2018-10-03 03:33 | ED Physician Documentation ---
History of Present Illness - Stated complaint Stated Complaint: BODY PAIN - Chief complaint Chief Complaint: General - Additonal information Additional information: hx from pt and EMR to ER BIBA for body wide pain and all over weakness for many months worse the last two days after he ran out of percocet in summary it seems that this pt has recently been diagnosed with metastatic cancer 05/12/18 he was found to have abd mass and adenopathy during an ER work up and was referred for further work up but was lost to follow up 08/25 seen in ER for leg pain and found to have a bony femur lesion 09/01 had outpt neck sono showing thyroid masses 09/06 had a R inguinal lymph node bx + for metastatic prostate cancer 09/29 he saw oncology and per oncology note his cancer is not curable and the plan is for palliative chemo - he has a sellers scan and bone scan schedule for tomorrow to guide tx plan he also was admitted to for sepsis 11/04 pna in 2017 he also has gout polyarthritis renal colic chronic back pain HTN HLD and hx drug abuse pt states he hurts from the the top of his head to the bottom of his feet chills no fever no cough nausea s vomit no diarrhea diff urinating none of these sx seem to be new - he thinks going on for about 4 months just worse he states his PMD and oncologist did not prescribe pain medications - he thinks it is because the ER had already prescribed these meds - but he had a tox screen + meth and methdone on 08/25 and I suspect that may have been a factor as well upon arrival in ED he is tachycardic Review of Systems Constitutional: denies: Fever, Chills Cardiac: reports: Chest pain / pressure Respiratory: denies: Dyspnea, Cough GI: reports: Abdominal Pain, Nausea. denies: Vomiting, Diarrhea : reports: Hesitancy Musculoskeletal: reports: Neck pain, Back pain, Extremity pain, Joint pain Neurologic: reports: Generalized weakness, Headache Endocrine: denies: Easy bruising / bleeding Immunocompromised: denies: Immunocompromised PD PAST MEDICAL HISTORY - Past Medical History Cardiovascular: None, Hypertension Respiratory: Pneumonia Neuro: None Endocrine/Autoimmune: Other GI: GERD : Renal insuffiency HEENT: None Psych: Depression Musculoskeletal: Osteoarthritis, Gout Derm: None - Past Surgical History Past Surgical History: Yes General: Colonoscopy Ortho: Spine surgery Cardiovascular: Vascular surgery - Present Medications Home Medications: Ambulatory Orders Medication Instructions Recorded Confirmed Omeprazole Magnesium 1 cap PO DAILY 09/29/18 09/29/18 Trazodone HCl 50 - 100 mg PO QPM PRN 10/03/18 10/03/18 - Allergies Allergies/Adverse Reactions: Allergies Allergy/AdvReac Type Severity Reaction Status Date / Time codeine [Codeine] Allergy Intermediate Rash Verified 09/29/18 16:54 Sulfa (Sulfonamide AdvReac Intermediate Emesis Verified 09/29/18 16:54 Antibiotics) - Social History Does the pt smoke?: No Smoking Status: Never smoker Does the pt drink ETOH?: Yes Does the pt have substance abuse?: No - Immunizations Immunizations are current?: Yes Immunizations: TDAP current <10years - POLST Patient has POLST: No POLST Status: Full Code PD ED PE NORMAL - Vitals Vital signs reviewed: Yes (tachy in pain afebrile) - General General: Alert and oriented X 3 - HEENT HEENT: PERRL - Cardiac Cardiac: RRR - Respiratory Respiratory: Clear bilaterally - Abdomen Abdomen: Non tender, Other (mild diffuse TTP non peritoneal) - Derm Derm: Normal color - Extremities Extremities: No deformity, No edema, Other (no redness or warmth) - Neuro Neuro: Alert and oriented X 3 Results - Vitals Vitals: Vital Signs - 24 hr 10/03/18 10/03/18 10/03/18 03:12 03:14 04:14 Temperature 37.0 C 37.0 C Heart Rate 118 H 113 H 107 H Respiratory 20 20 Rate Blood Pressure 104/77 104/77 89/59 L O2 Saturation 96 97 97 Oxygen O2 Source Room air - EKG (time done) 0517 Rate: Rate (enter#) (97) Rhythm: NSR [place]: Normal Intervals: Normal [place] QRS: Normal Ischemia: Normal ST segments - Labs Labs: Laboratory Tests 10/03/18 10/03/18 10/03/18 03:45 03:45 03:45 WBC 14.3 H RBC 3.95 L Hgb 9.9 L Hct 31.7 L MCV 80.3 MCH 25.1 L MCHC 31.3 L RDW 18.9 H Plt Count 443 MPV 6.2 L Neut # (Auto) 11.3 H Lymph # (Auto) 2.1 [place] # (Auto) 0.8 Eos # (Auto) 0.0 Baso # (Auto) 0.1 Absolute Nucleated RBC 0.01 Nucleated RBC % 0.0 Sodium 130 L Potassium 3.7 Chloride 99 L Carbon Dioxide 21 Anion Gap 10.0 BUN 18 Creatinine 0.9 Estimated GFR (MDRD) 85 L Glucose 139 H Lactic Acid 0.7 Calcium 7.5 L Troponin I Urine Color Urine Clarity Urine pH Ur Specific [place] Urine Protein Urine Glucose (UA) Urine Ketones Urine Occult Blood Urine Nitrite Urine Bilirubin Urine Urobilinogen Ur Leukocyte Esterase Ur Microscopic Review Urine Culture Comments Urine Opiates Screen Ur Oxycodone Screen Urine Methadone Screen Ur Propoxyphene Screen Ur Barbiturates Screen Ur Tricyclics Screen Ur Phencyclidine Scrn Ur Amphetamine Screen U Methamphetamines Scrn U Benzodiazepines Scrn Urine Cocaine Screen U Cannabinoids Screen 10/03/18 10/03/18 03:45 04:57 WBC RBC Hgb Hct MCV MCH MCHC RDW Plt Count MPV Neut # (Auto) Lymph # (Auto) [place] # (Auto) Eos # (Auto) Baso # (Auto) Absolute Nucleated RBC Nucleated RBC % Sodium Potassium Chloride Carbon Dioxide Anion Gap BUN Creatinine Estimated GFR (MDRD) Glucose Lactic Acid Calcium Troponin I < 0.04 Urine Color YELLOW Urine Clarity CLEAR Urine pH 6.5 Ur Specific [place] 1.015 Urine Protein NEGATIVE Urine Glucose (UA) NEGATIVE Urine Ketones NEGATIVE Urine Occult Blood NEGATIVE Urine Nitrite NEGATIVE Urine Bilirubin NEGATIVE Urine Urobilinogen 1 (NORMAL) Ur Leukocyte Esterase NEGATIVE Ur Microscopic Review NOT INDICATED Urine Culture Comments NOT INDICATED Urine Opiates Screen POSITIVE H Ur Oxycodone Screen NEGATIVE Urine Methadone Screen NEGATIVE Ur Propoxyphene Screen NEGATIVE Ur Barbiturates Screen NEGATIVE Ur Tricyclics Screen NEGATIVE Ur Phencyclidine Scrn NEGATIVE Ur Amphetamine Screen POSITIVE H U Methamphetamines Scrn POSITIVE H U Benzodiazepines Scrn NEGATIVE Urine Cocaine Screen NEGATIVE U Cannabinoids Screen POSITIVE H - Rads (name of study) CXR Radiology: See rad report (NACPD) CTPA Radiology: See rad report (no acute) CT AP Radiology: See rad report (no acute, adenopathy as before) PD MEDICAL DECISION MAKING - ED course ED course: complicated and difficult situation 62 male newly dx with incurable metastatic prostate cancer who oncology is planning to tx with palliative chemo in significant pain but also hx and likely ongoing illicit drug use (based on 11/23 tox screen) and tachycardic upon arrival which could be due a host of reasons (pain withdrawal dehydration infection) etc he just had blood work 3 days ago he has a sellers scan and bone scan already schedule for tomorrow will focus ER visit on ruling out acute infection etc as source of tachycardia and pain will of course tx pain while in ED - gave IV morphine and toradol and rx NSAID and zofran if able to dc - but unfortunately even with cancer pain and oncology planning palliative care will not be able to prescribe any stronger pain meds given JULIET WPMP data and recent tox screen - this is a difficult situation for both pt and provider - his ongoing cancer pain will need to be addressed but cannot be managed through ER vists - feel pt would benefit from a palliative care consult which will need to be ordered by PMD or oncology pt arrived tachy shortly after arrival BP started to drop as low as 70s systolic 3 L NS BP gradually back up david 90s systolic already has labs blood x lactate CXR UA pending CXR and UA neg, skin no infection, remains afebrile - held on ab and no infectious source identified thus far and other possible reasons for hypotension H/H noted to be lower than 4 days ago rectal exam = brown occult blood neg stool etiology for tachycardia and hypotension unclear will admit for serial H/H, consuder echo, and await culture results - after d/w hospitalist started IV zosyn vanco 2/2 possibility hypotension could be 2/2 infection/bacteremia in a illicit drug user spoke to hospitalist at 0615 who accept pt to inpt status pt and family updated Departure - Departure Disposition: 66 [facility] DC/Xfer Clinical Impression: Metastatic cancer, Tachycardia, Pain Hypotension Qualifiers: Hypotension type: unspecified hypotension type Qualified Code(s): I95.9 - Hypotension, unspecified Anemia Qualifiers: Anemia type: unspecified type Qualified Code(s): D64.9 - Anemia, unspecified
[2018-10-03] MEDS ORDERED: SODIUM CHLORIDE 0.9% 1,000 ML IV ONE ×3 (03:36→04:30)
[2018-10-03 03:59] LABS: BASOPHILS # (AUTO) 0.1 10^3/uL (0.0-0.1); BASOPHILS % (AUTO) 0.5 %; EOSINOPHILS % (AUTO) 0.1 %; HGB - HEMOGLOBIN 9.9 g/dL (14.0-18.0); LYMPHOCYTES # (AUTO) 2.1 10^3/uL (1.5-3.5); LYMPHOCYTES % (AUTO) 14.4 %; MEAN CORPUSCULAR HEMOGLOBIN 25.1 pg (27.0-31.0); MEAN CORPUSCULAR HGB CONC 31.3 g/dL (32.0-36.0); MEAN CORPUSCULAR VOLUME 80.3 fL (80.0-94.0); MEAN PLATELET VOLUME 6.2 fL (7.4-11.4); MONOCYTES # (AUTO) 0.8 10^3/uL (0.0-1.0); MONOCYTES % (AUTO) 5.9 %; NEUTROPHILS # (AUTO) 11.3 10^3/uL (1.5-6.6); NEUTROPHILS % (AUTO) 79.1 %; PLT - PLATELET COUNT 443 10^3/uL (130-450); RED BLOOD COUNT 3.95 10^6/uL (4.70-6.10); RED CELL DISTRIBUTION WIDTH 18.9 % (12.0-15.0); WHITE BLOOD COUNT 14.3 x10^3/uL (4.8-10.8)
[2018-10-03 04:05] LABS: CALCIUM 7.5 mg/dL (8.5-10.3); CREATININE 0.9 mg/dL (0.6-1.2)
--- NOTE | 2018-10-03 04:49 | XRAY Report ---
Reason: hypotension Procedure Date: 10/03/2018 Accession Number: [id number] / [id number] Procedure: XR - Chest 1 View X-Ray CPT Code: 47552 FULL RESULT: EXAM: CHEST RADIOGRAPHY EXAM DATE: 10/03/2018 04:42 AM. CLINICAL HISTORY: Hypotension. COMPARISON: CHEST 2 VIEW PA/LAT 07/14/2017 1:21 PM. TECHNIQUE: 1 view. FINDINGS: Lungs/Pleura: No focal opacities evident. No pleural effusion. No pneumothorax. Previously seen right upper lobe infiltrate is resolved. Mediastinum: Within exam limitations, the cardiomediastinal contour is normal. Other: None. IMPRESSION: Normal single view chest. RADIA
[2018-10-03 05:02] LABS: MUDS CUTOFF CONCENTRATIONS CUTOFF CONC BELOW:
[2018-10-03 05:03] LABS: BILIRUBIN,URINE NEGATIVE (NEGATIVE); GLUCOSE, URINE (UA) NEGATIVE (NEGATIVE); KETONES,URINE (UA) NEGATIVE (NEGATIVE); LEUKOCYTE ESTERASE, URINE NEGATIVE (NEGATIVE); NITRITE,URINE NEGATIVE (NEGATIVE); OCCULT BLOOD,URINE NEGATIVE (NEGATIVE); PH,URINE 6.5 PH (5.0-7.5); PROTEIN,URINE NEGATIVE (NEGATIVE); UROBILINOGEN,URINE 1 (NORMAL) E.U./dL (NORMAL)
[2018-10-03 05:05] LABS: CLARITY,URINE CLEAR (CLEAR)
[2018-10-03 05:14] LABS: AMPHETAMINE SCREEN,URINE POSITIVE (NEGATIVE); BENZODIAZEPINES SCREEN, URINE NEGATIVE (NEGATIVE); COCAINE SCREEN URINE NEGATIVE (NEGATIVE); METHADONE SCREEN, URINE NEGATIVE (NEGATIVE); METHAMPHETAMINES SCREEN, URINE POSITIVE (NEGATIVE); OPIATE SCREEN, URINE POSITIVE (NEGATIVE); OXYCODONE SCREEN, URINE NEGATIVE (NEGATIVE); PROPOXYPHENE SCREEN, URINE NEGATIVE (NEGATIVE); TRICYCLIC ANTIDEPRESSANT,URINE NEGATIVE (NEGATIVE)
[2018-10-03] MEDS ORDERED: IOVERSOL 320 100 ML VIAL IVP ONE (05:14)
--- NOTE | 2018-10-03 06:04 | CT Report ---
Reason: hypotension tachycardia cancer Procedure Date: 10/03/2018 Accession Number: [id number] / [id number] Procedure: CT - Chest Angio (PE) CPT Code: FULL RESULT: EXAM: CT ANGIOGRAM CHEST EXAM DATE: 10/03/2018 05:21 AM. CLINICAL HISTORY: Hypotension tachycardia cancer. COMPARISON: CHEST W/ 07/18/2017 9:23 AM. TECHNIQUE: Routine helical imaging was performed through the chest in the pulmonary arterial phase. IV Contrast: OPTI 320 80mL. Reconstructions: Coronal 3-D MIP reconstructions.Sagittal and coronal. In accordance with CT protocol optimization, one or more of the following dose reduction techniques were utilized for this exam: automated exposure control, adjustment of mA and/or KV based on patient size, or use of iterative reconstructive technique. FINDINGS: Pulmonary Arteries: Diagnostic quality: Adequate through the segmental arteries. No evidence for acute or chronic pulmonary emboli. RV/LV is within normal limits. There is no interventricular septal bowing. There is no reflux of contrast material in the IVC. Lungs/Pleura: Bibasilar atelectasis. No focal infiltrate, effusion, or pneumothorax. Mediastinum: Normal. No cardiac enlargement or adenopathy. Thoracic Aorta: Unremarkable. Upper Abdomen: Please see separate CT. Other: None. IMPRESSION: Normal pulmonary CT angiogram. No pulmonary emboli. RADIA
--- NOTE | 2018-10-03 06:09 | CT Report ---
Reason: hypotension tachycardia cancer Procedure Date: 10/03/2018 Accession Number: [id number] / [id number] Procedure: CT - Abdomen/Pelvis W/ CPT Code: FULL RESULT: EXAM: CT ABDOMEN AND PELVIS EXAM DATE: 10/03/2018 05:51 AM. CLINICAL HISTORY: Hypotension tachycardia cancer. COMPARISONS: CHEST W/ 07/18/2017 9:23 AM ABDOMEN/PELVIS W/ 05/12/2018 2:00 PM. TECHNIQUE: Routine helical CT imaging was performed through the abdomen and pelvis. IV contrast: OPTI 320 80mL. Enteric contrast: No. Reconstructions: Coronal and sagittal. In accordance with CT protocol optimization, one or more of the following dose reduction techniques were utilized for this exam: automated exposure control, adjustment of mA and/or KV based on patient size, or use of iterative reconstructive technique. FINDINGS: Lung Bases: Dependent atelectasis. Liver: Normal. No masses. Gallbladder/Bile Ducts: Unremarkable. Spleen: Normal. Pancreas: Normal. Adrenal Glands: Normal. Kidneys: Tiny nonobstructing right renal calculus. Peritoneal Cavity/Bowel: Normal. No free fluid, free air. No masses or acute inflammatory process. The appendix is well visualized and normal. Retroperitoneal adenopathy. Pelvic Organs: Right external iliac adenopathy. Vasculature: No aneurysms or other significant abnormality. Bones: No significant abnormality. Other: None. IMPRESSION: Retroperitoneal and right external iliac adenopathy, not significantly changed. RADIA
[2018-10-03] MEDS ORDERED: VANCOMYCIN INJ 1 GM in SODIUM CHLORIDE 0.9% 500 ML IV STA (06:23)
[2018-10-03] MEDS ORDERED: PIPERACILLIN/TAZOBACTAM 3.375 GM in SODIUM CHLORIDE 0.9% MINIBAG 100 ML IV STA (06:23)
[2018-10-03] MEDS ORDERED: PROCHLORPERAZINE 10 MG/2 ML VIAL IVP PRN (07:01)
[2018-10-03] MEDS ORDERED: SODIUM CHLORIDE FLUSH 0.9% 10 ML SYRINGE IVP PRN (07:01)
[2018-10-03] MEDS ORDERED: ONDANSETRON 4 MG/2 ML VIAL IVP PRN (07:01)
[2018-10-03] MEDS: IOVERSOL 320 100 ML VIAL IVP ONE (07:03)
[2018-10-03] MEDS ORDERED: ACETAMINOPHEN 325 MG TABLET PO STA (07:47)
[2018-10-03] MEDS ORDERED: traZODone 50 MG TABLET PO PRN (08:50)
[2018-10-03] MEDS: HYDROcod/ACETAM 10 MG/325 MG TABLET PO PRN ×2 (09:13→17:55)
[2018-10-03] MEDS: PANTOPRAZOLE 40 MG TABLET PO SCH (09:14)
[2018-10-03] MEDS: POLYETHYLENE GLYCOL 3350 17 GM PACKET PO SCH (09:16)
[2018-10-03] MEDS: SODIUM CHLORIDE FLUSH 0.9% 10 ML SYRINGE IVP SCH ×2 (09:16→17:44)
[2018-10-03] MEDS: SODIUM CHLORIDE 0.9% 1,000 ML IV SCH ×3 (09:45→22:58)
[2018-10-03 09:50] LABS: ALBUMIN 2.3 g/dL (3.2-5.5); BILIRUBIN,DIRECT 0.2 mg/dL (0.1-0.5); BILIRUBIN,TOTAL 0.8 mg/dL (0.2-1.0); MAGNESIUM 1.6 mg/dL (1.7-2.8); TOTAL PROTEIN 6.1 g/dL (6.7-8.2)
[2018-10-03] MEDS: PIPERACILLIN/TAZOBACTAM 3.375 GM in SODIUM CHLORIDE 0.9% MINIBAG 100 ML IV SCH ×2 (13:31→18:36)
[2018-10-03] MEDS: predniSONE 20 MG TABLET PO SCH (14:29)
[2018-10-03] MEDS: VANCOMYCIN INJ 1 GM in SODIUM CHLORIDE 0.9% 250 ML IV SCH (14:29)
[2018-10-03] MEDS: ENOXAPARIN 40 MG/0.4 ML SYRINGE SUBQ SCH (14:29)
[2018-10-03] MEDS: MAGNESIUM OXIDE 400 MG TABLET PO SCH (14:29)
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
[2018-10-04] MEDS: PIPERACILLIN/TAZOBACTAM 3.375 GM in SODIUM CHLORIDE 0.9% MINIBAG 100 ML IV SCH ×3 (00:45→11:54)
[2018-10-04] MEDS: VANCOMYCIN INJ 1 GM in SODIUM CHLORIDE 0.9% 250 ML IV SCH ×2 (01:25→14:21)
[2018-10-04 05:52] LABS: BASOPHILS % (AUTO) 0.1 %; HGB - HEMOGLOBIN 9.3 g/dL (14.0-18.0); LYMPHOCYTES # (AUTO) 1.5 10^3/uL (1.5-3.5); LYMPHOCYTES % (AUTO) 12.3 %; MEAN CORPUSCULAR HEMOGLOBIN 25.7 pg (27.0-31.0); MEAN CORPUSCULAR HGB CONC 31.3 g/dL (32.0-36.0); MEAN CORPUSCULAR VOLUME 81.9 fL (80.0-94.0); MEAN PLATELET VOLUME 6.4 fL (7.4-11.4); MONOCYTES # (AUTO) 0.6 10^3/uL (0.0-1.0); NEUTROPHILS # (AUTO) 9.9 10^3/uL (1.5-6.6); NEUTROPHILS % (AUTO) 82.6 %; PLT - PLATELET COUNT 418 10^3/uL (130-450); RED BLOOD COUNT 3.63 10^6/uL (4.70-6.10); RED CELL DISTRIBUTION WIDTH 18.8 % (12.0-15.0); WHITE BLOOD COUNT 11.9 x10^3/uL (4.8-10.8)
[2018-10-04 06:13] LABS: ALBUMIN 2.1 g/dL (3.2-5.5); ALBUMIN/GLOBULIN RATIO 0.6 (1.0-2.2); BILIRUBIN,TOTAL 0.6 mg/dL (0.2-1.0); CALCIUM 8.3 mg/dL (8.5-10.3); CREATININE 0.8 mg/dL (0.6-1.2); TOTAL PROTEIN 5.8 g/dL (6.7-8.2)
[2018-10-04] MEDS: SODIUM CHLORIDE FLUSH 0.9% 10 ML SYRINGE IVP SCH ×4 (06:14→23:45)
[2018-10-04] MEDS: SODIUM CHLORIDE 0.9% 1,000 ML IV SCH (06:14)
[2018-10-04] MEDS: PANTOPRAZOLE 40 MG TABLET PO SCH (06:15)
[2018-10-04] MEDS: ENOXAPARIN 40 MG/0.4 ML SYRINGE SUBQ SCH (08:34)
[2018-10-04] MEDS: MAGNESIUM OXIDE 400 MG TABLET PO SCH (08:34)
[2018-10-04] MEDS: predniSONE 20 MG TABLET PO SCH (08:34)
[2018-10-04] MEDS: POLYETHYLENE GLYCOL 3350 17 GM PACKET PO SCH (08:35)
[2018-10-04] MEDS ORDERED: IOVERSOL 320 100 ML VIAL IVP ONE (08:47)
[2018-10-04] MEDS ORDERED: SODIUM BICARBONATE 100 MEQ in DEXTROSE 5% 1,000 ML IV SCH (09:00)
--- NOTE | 2018-10-04 14:15 | PROVIDER PROGRESS NOTE ---
Subjective - Prog Note Date Prog Note Date: 10/04/18 Prog Note Time: 14:00 - Subjective Subjective: He is very concerned about making sure that he gets his staging workup done. He is already had a CT of abdomen and pelvis yesterday. Is to have CT of the chest today. But what was ordered was a CT angiogram not a CT chest and that was done. CT of the neck was not ordered. He is also to have a bone scan. His next worry is that of identity theft. He is adamant that there was someone out there with his name, date of , Social Security number seeing other doctors. For instance someone saw Dr. Hernández, orthopedic surgery, years ago for a jaw fracture. He said he is never had his jaw fractured. He wants to know what he can do about identity theft. He is also upset that he is being identified as "drug-seeking". He really cannot stop talking about this even though I try and prompted him in another direction. He is angry and says that we are unprofessional, that I am unprofessional by even asking him about pain. Nursing even reassures him and says that we asked the risk of every patient on every shift to document that. He currently denies any pain Current Medications - Current Medications Current Medications: Active Medications Hydrocodone Bitart/Acetaminophen ([place] 10 Mg/325 Mg) 1 tab PO Q6HR PRN PRN Reason: PAIN Last Admin: 10/03/18 17:55 Dose: 1 tab Enoxaparin Sodium (Lovenox) 40 mg SUBQ DAILY [facility] Last Admin: 10/04/18 08:34 Dose: 40 mg Piperacillin Sod/Tazobactam (Sod 3.375 gm/ Sodium Chloride) 100 mls @ 200 mls/h r IV Q6HR [facility] Last Infusion: 10/04/18 12:24 Dose: Infused Vancomycin HCl 1 gm/ Sodium (Chloride) 250 mls @ 167 mls/hr IV Q12H [facility] Last Infusion: 10/04/18 08:06 Dose: Infused Sodium Bicarbonate 100 meq/ (Dextrose) 1,100 mls @ 100 mls/hr IV .Q11H [facility] Stop: 10/04/18 19:59 Last Infusion: 10/04/18 12:24 Dose: 100 mls/hr Magnesium Oxide (Mag Ox) 400 mg PO DAILYWM [facility] Last Admin: 10/04/18 08:34 Dose: 400 mg Ondansetron HCl (Zofran Inj) 4 mg IVP Q6HR PRN PRN Reason: Nausea / Vomiting Pantoprazole Sodium (Protonix) 40 mg PO QDAC [facility] Last Admin: 10/04/18 06:15 Dose: 40 mg Polyethylene Glycol (Miralax) 17 gm PO DAILY [facility] Last Admin: 10/04/18 08:35 Dose: 17 gm Pred[facility]one ([facility]eltasone) [facility] [place] [facility] Admin: 10/04/18 08:34 Dose: 20 mg Prochlorperazine Edisylate (Compazine Inj) 10 mg IVP Q6HR PRN PRN Reason: Nausea / Vomiting Sodium Chloride (Normal Saline Flush 0.9%) 10 ml IVP PRN PRN PRN Reason: NEEDED PER PROVIDER ORDERS Sodium Chloride (Normal Saline Flush 0.9%) 10 ml IVP 0100,0900,1700 [facility] Last Admin: 10/04/18 08:35 Dose: 10 ml Trazodone HCl (Desyrel) 100 mg PO QPM PRN PRN Reason: Insomnia Omeprazole Magnesium 20 mg PO DAILY 09/29/18 Trazodone HCl 50 - 100 mg PO QPM PRN 10/03/18 Objective - Vital Signs/Intake & Output Reviewed Vital Signs: Yes Vital Signs: Vital Signs x48h Temp Pulse Resp BP Pulse Ox 10/04/18 12:32 36.4 C L 98 18 145/93 H 98 10/04/18 09:36 36.5 C 96 16 138/87 H 99 10/04/18 07:27 36.3 C L 98 16 142/88 H 100 Intake & Output: Intake & Output 10/01/18 10/02/18 10/03/18 10/04/18 23:59 23:59 23:59 23:59 Intake Total 6370 2988.333 Output Total 1800 2150 Balance 4570 838.333 - Objective General Appearance: positive: No acute distress, Alert Eyes Bilateral: positive: PERRL, EOMI ENT: positive: Pharynx nml Neck: positive: No JVD, Trachea midline, Lymphadenopathy (R), Lymphadenopathy (L). negative: Stiff neck, Carotid bruit, Tracheal deviation Respiratory: positive: Chest non-tender. negative: Wheezes, Rales, Rhonchi Cardiovascular: positive: Regular rate & rhythm. negative: Gallop/S4, Friction rub Abdomen: positive: Non-tender, No organomegaly, Nml bowel sounds, No distention, Other (Right groin adenopathy) Skin: positive: Warm, Dry Extremities: positive: Full ROM, No pedal edema Neurologic/Psychiatric: positive: Oriented x3, CN's nml (2-12), Motor nml - Lab Results Fish Bones: 10/04/18 05:30 10/04/18 05:30 Other Labs: Lab Results x24hrs 10/04/18 10/04/18 10/04/18 Range/Units 05:30 05:30 05:30 WBC 11.9 H (4.8-10.8) x10^3/uL RBC 3.63 L (4.70-6.10) 10^6/uL Hgb 9.3 L (14.0-18.0) g/dL Hct 29.7 L (42.0-52.0) % MCV 81.9 (80.0-94.0) fL MCH 25.7 L (27.0-31.0) pg MCHC 31.3 L (32.0-36.0) g/dL RDW 18.8 H (12.0-15.0) % Plt Count 418 (130-450) 10^3/uL MPV 6.4 L (7.4-11.4) fL Neut # (Auto) 9.9 H (1.5-6.6) 10^3/uL Lymph # (Auto) 1.5 (1.5-3.5) 10^3/uL Cotton # (Auto) 0.6 (0.0-1.0) 10^3/uL Eos # (Auto) 0.0 (0.0-0.7) 10^3/uL Baso # (Auto) 0.0 (0.0-0.1) 10^3/uL Absolute Nucleated RBC 0.00 x10^3/uL Nucleated RBC % 0.0 /100WBC Sodium 139 (135-145) mmol/L Potassium 4.2 (3.5-5.0) mmol/L Chloride 113 H (101-111) mmol/L Carbon Dioxide 21 (21-32) mmol/L Anion Gap 5.0 L (6-13) BUN 14 (6-20) mg/dL Creatinine 0.8 (0.6-1.2) mg/dL Estimated GFR (MDRD) 98 (>89) Glucose 148 H (70-100) mg/dL Calcium 8.3 L (8.5-10.3) mg/dL Iron 9 L (45-182) ug/dL TIBC 188 L (250-450) ug/dL % Saturation 5 L (20-50) % Transferrin 134 L (180-329) mg/dL Total Bilirubin 0.6 (0.2-1.0) mg/dL AST 17 (10-42) IU/L ALT 16 (10-60) IU/L Alkaline Phosphatase 75 (42-121) IU/L Total Protein 5.8 L (6.7-8.2) g/dL Albumin 2.1 L (3.2-5.5) g/dL Globulin 3.7 (2.1-4.2) g/dL Albumin/Globulin Ratio 0.6 L (1.0-2.2) Vitamin B12 100 L (180-914) pg/mL ABX Reporting Has patient been on IV antibiotics over the past 48 hours?: Yes Assessment/Plan - Problem List (1) Hypotension Impression: And from opiate withdrawal as well as prednisone taper. He is responded nicely to resuming his prednisone, resuming his opiates, and IV fluids. I anticipate him being here overnight, and we will discharge him in the morning. So far troponins have been negative, white cell count mildly elevated 11.9, urinalysis normal, blood cultures negative after 1 day. No fever. Echocardiogram shows a left ventricle that is normal with an ejection fraction of 65-70%. He has grade 1 diastolic dysfunction. The right ventricle is normal. No hemodynamically significant cardiac valve disease and no evidence of endocarditis. Plan: I will stop empiric antibiotic therapy for Zosyn and Levaquin. With prostatitis or prostate enlargement in mind, continue Levaquin p.o. Qualifiers: Hypotension type: hypotension due to hypovolemia Qualified Code(s): I95.89 - Other hypotension; E86.1 - Hypovolemia (2) Methamphetamine abuse, episodic Impression: Methamphetamines have been positive July 2017, August 25, 2018, and with this admission on October 03. I have asked him to please refrain from any methamphetamine use especially while under treatment for his prostate cancer. (3) Stage IV adenocarcinoma of prostate Impression: He had a CT in May, July, and then today. CT confirms the same adenopathy that is relatively unchanged from May of this year in the abdomen. CT of the chest shows no adenopathy. Plan: We will discharge the patient tomorrow morning, and after discharge he will get his bone scan in the outpatient setting. Do CT of neck today. (4) Iron deficiency anemia Impression: Laboratory Tests 10/04/18 10/04/18 05:30 05:30 Iron 9 L TIBC 188 L % Saturation 5 L Transferrin 134 L Vitamin B12 100 L no acute blood loss noted on ROS. check FOBT start iron and B12. Qualifiers: Iron deficiency anemia type: unspecified iron deficiency Qualified Code(s): D50.9 - Iron deficiency anemia, unspecified
[2018-10-04] MEDS: FERROUS GLUCONATE 324 MG TABLET PO SCH (14:48)
[2018-10-04] MEDS ORDERED: CYANOCOBALAMIN 1,000 MCG/ML VIAL IM SCH (15:00)
[2018-10-04] MEDS: ASCORBIC ACID CHEW 500 MG TABLET PO SCH (17:38)
[2018-10-04] MEDS: SACCHAROMYCES BOULARDII 250 MG CAPSULE PO SCH (17:38)
[2018-10-04] MEDS: IOVERSOL 320 100 ML VIAL IVP ONE (17:40)
--- NOTE | 2018-10-04 20:04 | CT Report ---
Reason: neck masses w prostate ca dx. Procedure Date: 10/04/2018 Accession Number: [id number] / [id number] Procedure: CT - Neck Soft Tissue W/ CPT Code: FULL RESULT: EXAM: CT SOFT TISSUE NECK WITH CONTRAST. EXAM DATE: 10/04/2018 05:29 PM. HISTORY: Neck masses with prostate cancer. COMPARISONS: None. TECHNIQUE: Routine soft tissue neck CT protocol. Reconstructions: Coronal and sagittal. IV contrast: Optiray-320 [address] In accordance with [address] protocol optimization, one or more of the following dose reduction techniques were utilized for this exam: automated exposure control, adjustment of mA and/or KV based on patient size, or use of iterative reconstructive technique. FINDINGS: There is an old fracture of the right lamina papyracea. The imaged portions of the paranasal sinuses are normally aerated. The bilateral mastoid air cells are normally aerated. There is a small area of lateral cortical plating of the left lateral orbital wall. There is an old fracture of the left lateral orbital wall. Recommend correlation with history. There is beam-hardening artifact from the patient's dental amalgam and or dental hardware obscuring portions of the oropharynx, nasopharynx, oral cavity, consulting sales executive and parotid spaces, tongue and tongue base. There is a large dental caries of the right lower row second premolar. There is subsegmental atelectasis demonstrated within the bilateral lung apices. There are 2 surgical clips demonstrated within the left submandibular space producing beam hardening artifact. There is normal enhancement within the deep venous sinuses. There is normal enhancement within the brain parenchyma. The imaged portions of the orbits are normal in appearance. The consulting sales executive spaces exhibit symmetric densities. The right and left parotid spaces enhance symmetrically. The openings of the eustachian tubes are normally aerated. The torus tubarius are symmetric. The fossa of Rosenmuller are normally aerated bilaterally. The retropharyngeal space exhibits normal fat densities. The cervical and thoracic esophagus within the provided field of view is unremarkable. The palatine tonsils exhibit symmetric hypertrophy. The extrinsic and the intrinsic muscles of the tongue exhibit symmetric densities. The vallecula are symmetric. The free and fixed margins of the epiglottis are normal in appearance. The preepiglottic space and paraglottic spaces exhibit normal fat densities. The aryepiglottic folds and pyriform sinuses are symmetric. The false and true cords are normal in appearance. The subglottic space is normal. The bilateral thyroid lobes enhance symmetrically. There is no significant adenopathy within the imaged portions of the superior mediastinum. There are multiple small lymph nodes of the left supraclavicular fossa the largest of which measures 8 mm in the short axis. This would be within the normal range by size criteria. There is a similar appearing lymph node of the right subclavian chain measuring 9 mm in the short axis. Again this would be at the upper limits of normal by size criteria. It may reflect a mild degree of reactive enlargement. IMPRESSION: 1. There are multiple small lymph nodes measuring less than 10 mm in the short axis present in the right subclavian chain and left supraclavicular fossa. This would be normal by size criteria. 2. There is no evidence of enhancing neck mass. 3. There are surgical changes of multiple surgical clips in the left submandibular space. Recommend correlation with history. 4. There is an old fracture of the right lamina papyracea and there are old fractures of the left lateral orbital wall.
[2018-10-04] MEDS ORDERED: LORazepam 0.5 MG TABLET PO PRN (21:36)
[2018-10-05] MEDS: SODIUM CHLORIDE 0.9% 1,000 ML IV SCH (04:31)
[2018-10-05 05:24] LABS: BASOPHILS % (AUTO) 0.2 %; EOSINOPHILS # (AUTO) 0.1 10^3/uL (0.0-0.7); EOSINOPHILS % (AUTO) 0.5 %; HGB - HEMOGLOBIN 9.9 g/dL (14.0-18.0); LYMPHOCYTES # (AUTO) 2.8 10^3/uL (1.5-3.5); LYMPHOCYTES % (AUTO) 24.2 %; MEAN CORPUSCULAR HEMOGLOBIN 25.4 pg (27.0-31.0); MEAN CORPUSCULAR HGB CONC 32.1 g/dL (32.0-36.0); MEAN CORPUSCULAR VOLUME 79.2 fL (80.0-94.0); MEAN PLATELET VOLUME 6.6 fL (7.4-11.4); MONOCYTES # (AUTO) 0.6 10^3/uL (0.0-1.0); MONOCYTES % (AUTO) 5.7 %; NEUTROPHILS % (AUTO) 69.4 %; PLT - PLATELET COUNT 546 10^3/uL (130-450); RED BLOOD COUNT 3.91 10^6/uL (4.70-6.10); RED CELL DISTRIBUTION WIDTH 18.7 % (12.0-15.0); WHITE BLOOD COUNT 11.5 x10^3/uL (4.8-10.8)
[2018-10-05 05:34] LABS: ALBUMIN 2.4 g/dL (3.2-5.5); ALBUMIN/GLOBULIN RATIO 0.6 (1.0-2.2); BILIRUBIN,TOTAL 0.4 mg/dL (0.2-1.0); CALCIUM 8.4 mg/dL (8.5-10.3); CREATININE 0.7 mg/dL (0.6-1.2); TOTAL PROTEIN 6.2 g/dL (6.7-8.2)
[2018-10-05] MEDS ORDERED: POTASSIUM CHLORIDE 20 MEQ TABLET PO ONE (05:47)
[2018-10-05] MEDS: PANTOPRAZOLE 40 MG TABLET PO SCH (06:30)
--- NOTE | 2018-10-05 07:49 | Discharge Plan ---
Discharge Plan Disposition: 01 Home, Self Care Condition: Good Prescriptions: Hydrocodone/Acetaminophen [Vicodin 5-300 mg Tablet] 1 each PO Q6H PRN #10 tablet PRN Reason: Pain predniSONE [Prednisone] 5 mg PO UD #20 tablet Diet: Regular Activity Restrictions: Activity as Tolerated Shower Restrictions: No Driving Restrictions: No Instruction Topics: Acetaminophen Hydrocodone tablets or capsules, Prednisone tablets, Anemia, Cancer Prostate, Tachycardia Additional Instructions or Follow Up instructions: You were admitted to the hospital because of low blood pressure and not feeling well. You hurt all over. In the few days before you came in you had been tapered off Percocet, prednisone, and your toxicology screen is positive for methamphetamines. You feel that you have been exposed to methamphetamines via secondhand smoke. In any case, we feel that the low blood pressure you presented with was a combination of dehydration, and mild withdrawal from steroids and opioids. You responded to IV fluids. We initially did start you on antibiotics, but all the cultures came back negative, and you never had a fever or elevated white cell count. So we do not think you need to go home on antibiotics. We found no source of infection. You are also very upset because there is a gentleman who [place] date [place] , [place] doctors and using your identity. We have recommended you contact the police. You said you already have. The next step would be to contact the medical records of all the institutions you see to warn them that someone else is using your identity for insurance fraud. Please follow-up with your primary care provider for follow-up of your blood pr essure. You will also need to follow-up with your oncologist to review the results of your 2 CT scans done the first day you were admitted and your bone scan that was done after your discharge today. [place]: [facility] (Oncology followup) No Smoking: If you smoke, Please STOP! Call for help. Follow-up with: Mary Castillo ARNP [Credentialed Staff Provider] -
[2018-10-05] MEDS: SACCHAROMYCES BOULARDII 250 MG CAPSULE PO SCH (08:25)
[2018-10-05] MEDS: predniSONE 20 MG TABLET PO SCH (08:25)
[2018-10-05] MEDS: ASCORBIC ACID CHEW 500 MG TABLET PO SCH (08:25)
[2018-10-05] MEDS: FERROUS GLUCONATE 324 MG TABLET PO SCH (08:25)
[2018-10-05] MEDS: MAGNESIUM OXIDE 400 MG TABLET PO SCH (08:25)
[2018-10-05] MEDS: ENOXAPARIN 40 MG/0.4 ML SYRINGE SUBQ SCH (08:26)
[2018-10-05] MEDS: SODIUM CHLORIDE FLUSH 0.9% 10 ML SYRINGE IVP SCH (08:26)
[2018-10-05] MEDS: POLYETHYLENE GLYCOL 3350 17 GM PACKET PO SCH (08:26)
[2018-10-05] MEDS: HYDROcod/ACETAM 10 MG/325 MG TABLET PO PRN (08:32)
[2018-10-05] MEDS ORDERED: CYANOCOBALAMIN 500 MCG TABLET PO SCH (09:00)
[2018-10-05] MEDS ORDERED: levoFLOXacin 250 MG TABLET PO SCH (09:00)
[2018-10-05 10:03] VITALS: BP 152/96
[2018-10-05] MEDS ORDERED: IOVERSOL 320 100 ML VIAL IVP ONE (17:40)
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
== END 2018-10-05 10:41 | disposition home or self-care (01) | DRG 315 ==
LOC: EDUNIT# → ED 03:05 → MS2 07:01
PROVIDERS: ADMIT Family Medicine Sports Medicine; ATTEND Specialist
DX: G89.3 Neoplasm related pain (acute) (chronic) (principal); I95.9 Hypotension, unspecified; C77.8 Secondary and unspecified malignant neoplasm of lymph nodes of multiple regions; C79.51 Secondary malignant neoplasm of bone; D64.9 Anemia, unspecified; F11.23 Opioid dependence with withdrawal; E87.1 Hypo-osmolality and hyponatremia; N23 Unspecified renal colic; R00.0 Tachycardia, unspecified; M19.90 Unspecified osteoarthritis, unspecified site; C61 Malignant neoplasm of prostate; G89.4 Chronic pain syndrome; E83.42 Hypomagnesemia; E86.0 Dehydration; N28.9 Disorder of kidney and ureter, unspecified; F19.11 Other psychoactive substance abuse, in remission; D53.9 Nutritional anemia, unspecified; F15.10 Other stimulant abuse, uncomplicated; M10.9 Gout, unspecified; K21.9 Gastro-esophageal reflux disease without esophagitis; E07.9 Disorder of thyroid, unspecified; F32.9 Major depressive disorder, single episode, unspecified; Z79.899 Other long term (current) drug therapy; Z87.01 Personal history of pneumonia (recurrent); Z72.89 Other problems related to lifestyle
CPT/HCPCS: 36415; 70491; 71045; 71275; 74177; 80048; 80053; 80076; 80202; 80306; 81001; 81003; 82272; 82607; 82747; 83540; 83605; 83735; 84466; 84484; 85025; 87040; 87086; 87640; 93005; 93306; 96361; 96374; 99284

== ENCOUNTER 2018-10-05 09:15 | Outpatient (CLI) | payer MEDICARE ==
--- NOTE | 2018-10-06 09:35 | Nuclear Medicine Report ---
Reason: METASTATIC PROSTATE CA Procedure Date: 10/05/2018 Accession Number: [id number] / [id number] Procedure: NM - Bone Whole Body CPT Code: FULL RESULT: EXAM: Bone Whole Body DATE: 10/05/2018 4:00 PM CLINICAL HISTORY: METASTATIC PROSTATE CA COMPARISON: None. TECHNIQUE: The risks, benefits, and alternatives of the procedure were discussed with the patient. All questions were answered. The patient was administered 32.5 mCi of technetium 99 MDP intravenously. No imaging was acquired as the patient never returned for imaging. FINDINGS: None. IMPRESSION: Radiotracer injection. RADIA
== END 2018-10-05 09:16 | disposition home or self-care (01) ==
LOC: DI 09:15
PROVIDERS: ATTEND Internal Medicine Hematology & Oncology
DX: C61 Malignant neoplasm of prostate (principal)
CPT/HCPCS: 78306

== ENCOUNTER 2018-10-10 09:34 | Outpatient (CLI) | payer MEDICARE | END 2018-10-10 09:35 | disposition critical access hospital (66) | LOC: EMS 09:34 | PROVIDERS: ATTEND Surgery | DX: M54.5 Low back pain (principal); R06.00 Dyspnea, unspecified | CPT/HCPCS: A0425; A0429 ==

== ENCOUNTER 2018-10-10 10:42 | Emergency (ER) | payer MEDICARE ==
[2018-10-10] MEDS ORDERED: KETOROLAC 30 MG/ML VIAL IVP STA (11:04)
[2018-10-10] MEDS ORDERED: LIDOCAINE PATCH 5% TOP STA (11:04)
--- NOTE | 2018-10-10 11:11 | ED Physician Documentation ---
History of Present Illness - Stated complaint Stated Complaint: BACK PX - Chief complaint Chief Complaint: Back Pain - Additonal information Additional information: hx from pt and EMR in short 62 male with metastatic prostate cancer - for details of work up and CT imaging please refer to EMR - oncology is planning palliative chemo pt recently seen by me in ER and admitted for hyotension and tachycardia concern for sepsis - per dc summary cultures were negative pain has been a concern for him but he was + for illicit drugs on numerous drug screen so providers are reluctant to prescribe pain medication I had requested pt get a palliative care consult during his last admit and the night hospitalist ordered it - but it is still in an ordered status and appears to have not been done today pt awoke, stretched, felt a pain in his R flank pain, and so called the ambulance no fever no CP no dyspnea no abd pain no numbness ro groin or legs no radiation down the leg no hematuria dysuria or incont Review of Systems Constitutional: denies: Fever Cardiac: denies: Chest pain / pressure Respiratory: denies: Dyspnea GI: denies: Abdominal Pain, Nausea, Vomiting : denies: Dysuria, Frequency, Hematuria Musculoskeletal: reports: Back pain Neurologic: denies: Focal weakness, Numbness Endocrine: denies: Easy bruising / bleeding Immunocompromised: denies: Immunocompromised PD PAST MEDICAL HISTORY - Past Medical History Cardiovascular: None, Hypertension Respiratory: Pneumonia Neuro: None Endocrine/Autoimmune: Other GI: GERD : Renal insuffiency HEENT: None Psych: Depression Musculoskeletal: Osteoarthritis, Gout Derm: None - Past Surgical History Past Surgical History: Yes General: Colonoscopy Ortho: Spine surgery Cardiovascular: Vascular surgery - Present Medications Home Medications: Ambulatory Orders Medication Instructions Recorded Confirmed Omeprazole Magnesium 20 mg PO DAILY 09/29/18 10/10/18 Trazodone HCl 50 - 100 mg PO QPM PRN 10/03/18 10/10/18 Hydrocodone/Acetaminophen [Vicodin 1 each PO Q6H PRN #10 tablet 10/05/18 10/10/18 5-300 mg Tablet] Magnesium Oxide [Mag Ox] 400 mg PO DAILYWM tablet 10/05/18 10/10/18 predniSONE [Prednisone] 5 mg PO UD #20 tablet 10/05/18 10/10/18 - Allergies Allergies/Adverse Reactions: Allergies Allergy/AdvReac Type Severity Reaction Status Date / Time codeine [Codeine] Allergy Intermediate Rash Verified 10/10/18 10:52 Sulfa (Sulfonamide AdvReac Intermediate Emesis Verified 10/10/18 10:52 Antibiotics) - Social History Does the pt smoke?: No Smoking Status: Never smoker Does the pt drink ETOH?: Yes Does the pt have substance abuse?: No - Immunizations Immunizations are current?: Yes Immunizations: TDAP current <10years - POLST Patient has POLST: No POLST Status: Full Code PD ED PE NORMAL - Vitals Vital signs reviewed: Yes - General General: Alert and oriented X 3 - HEENT HEENT: PERRL - Neck Neck: Supple, no meningeal sign - Cardiac Cardiac: RRR - Respiratory Respiratory: No respiratory distress, Clear bilaterally - Abdomen Abdomen: Soft, Non tender, Other (no pulsatile mass) - Back Back: No spinal TTP, Other (R soft tissue lumbar region TTP s redneess swellign etc, no focal spine TTP) - Extremities Extremities: No deformity - Neuro Neuro: Alert and oriented X 3, No motor deficit, No sensory deficit, Other (hip felxion knee ext foot dorsi plantar flkexion 5/5, nl sensation denies saddle anesthesia, neg SLR, no clonus) Results - Vitals Vitals: Vital Signs - 24 hr 10/10/18 10/10/18 10:45 11:54 Temperature 36.9 C 36.0 C L Heart Rate 88 95 Respiratory 18 18 Rate Blood Pressure 154/101 H 171/97 H O2 Saturation 97 100 Oxygen O2 Source Room air - Labs Labs: Laboratory Tests 10/10/18 11:27 WBC 14.8 H RBC 4.46 L Hgb 11.4 L Hct 35.0 L MCV 78.6 L MCH 25.6 L MCHC 32.6 RDW 19.1 H Plt Count 659 H MPV 6.5 L Neut # (Auto) 9.8 H Lymph # (Auto) 3.6 H [place] # (Auto) 1.1 H Eos # (Auto) 0.1 Baso # (Auto) 0.1 Absolute Nucleated RBC 0.00 Nucleated RBC % 0.0 PD MEDICAL DECISION MAKING - ED course ED course: prior CTAP 10/03/18 showed a tiny non obstructing R renal calculi and retroperiton eal adenopathy so did not re-image gave toadol and lido and ordered CBC ER panel and UA apparently pt eloped while I was intubating a critical pt I did not get to re-eval him nor talk with him again prior to discharge so dispo is elope not AMA Departure - Departure Disposition: ED Elope Clinical Impression: Back pain Qualifiers: Back pain location: low back pain Chronicity: acute Back pain laterality: right Sciatica presence: without sciatica Qualified Code(s): M54.5 - Low back pain Condition: Fair Discharge Date/Time: 10/10/18 12:02
[2018-10-10 11:44] LABS: BASOPHILS # (AUTO) 0.1 10^3/uL (0.0-0.1); EOSINOPHILS # (AUTO) 0.1 10^3/uL (0.0-0.7); EOSINOPHILS % (AUTO) 0.9 %; HGB - HEMOGLOBIN 11.4 g/dL (14.0-18.0); LYMPHOCYTES # (AUTO) 3.6 10^3/uL (1.5-3.5); LYMPHOCYTES % (AUTO) 24.5 %; MEAN CORPUSCULAR HEMOGLOBIN 25.6 pg (27.0-31.0); MEAN CORPUSCULAR HGB CONC 32.6 g/dL (32.0-36.0); MEAN CORPUSCULAR VOLUME 78.6 fL (80.0-94.0); MEAN PLATELET VOLUME 6.5 fL (7.4-11.4); MONOCYTES # (AUTO) 1.1 10^3/uL (0.0-1.0); MONOCYTES % (AUTO) 7.4 %; NEUTROPHILS # (AUTO) 9.8 10^3/uL (1.5-6.6); NEUTROPHILS % (AUTO) 66.2 %; PLT - PLATELET COUNT 659 10^3/uL (130-450); RED BLOOD COUNT 4.46 10^6/uL (4.70-6.10); RED CELL DISTRIBUTION WIDTH 19.1 % (12.0-15.0); WHITE BLOOD COUNT 14.8 x10^3/uL (4.8-10.8)
[2018-10-10 11:58] VITALS: BP 171/97
== END 2018-10-10 12:02 | disposition left against medical advice (07) ==
LOC: EDUNIT# → ED 10:42
DX: M54.5 Low back pain (principal); C61 Malignant neoplasm of prostate; I10 Essential (primary) hypertension
CPT/HCPCS: 36415; 85025; 96374; 99283; A9270; 80053; 83690

== ENCOUNTER 2018-10-18 11:35 | Outpatient (CLI) | payer MEDICARE ==
--- NOTE | 2018-10-19 10:16 | Nuclear Medicine Report ---
Reason: METASTATIC PROSTATE CANCER Procedure Date: 10/18/2018 Accession Number: [id number] / [id number] Procedure: NM - Bone Whole Body CPT Code: FULL RESULT: EXAM: BONE SCAN EXAM DATE: 10/18/2018 04:25 PM. CLINICAL HISTORY: METASTATIC PROSTATE CANCER. COMPARISON: NECK SOFT TISSUE W/ 10/04/2018 5:29 PM ABDOMEN/PELVIS W/ 10/03/2018 5:20 AM CHEST ANGIO 10/03/2018 5:20 AM. TECHNIQUE: Following the intravenous administration of 32.9 mCi of technetium 99m MDP and an appropriate delay, a whole-body scan was performed in anterior and posterior projections. Site-specific spot views of the region of interest were obtained in various projections. FINDINGS: Normal renal radiotracer uptake and bladder activity. Normal soft tissue activity. Overall normal osseous uptake. There are multiple abnormal foci of radiotracer uptake involving the axial and proximal appendicular skeleton including the skull, multiple levels of the cervical, thoracic, and lumbar spine most conspicuous at T10, multiple bilateral ribs most conspicuous at the right posterior fourth rib, right scapula, sternum, right clavicle, bilateral pelvis most conspicuous at the ischia bilaterally, left humeral shaft, right femoral head and neck. Many of these lesions correspond to sclerotic foci by CT and are likely metastatic. There is fairly symmetric mild to moderate uptake at the shoulders, elbows, wrists, knees, and bilateral feet/ankles which is likely degenerative. IMPRESSION: 1. Evidence of multifocal osseous metastatic disease, as noted above. RADIA
== END 2018-10-18 11:36 | disposition home or self-care (01) ==
LOC: DI 11:35
PROVIDERS: ATTEND Internal Medicine Hematology & Oncology
DX: C61 Malignant neoplasm of prostate (principal); C79.51 Secondary malignant neoplasm of bone
CPT/HCPCS: 78306

== ENCOUNTER 2019-03-01 00:05 | Outpatient (CLI) | payer MEDICARE | END 2019-03-01 00:06 | disposition EMS.NT | LOC: EMS 00:05 | PROVIDERS: ATTEND Surgery | DX: M54.5 Low back pain (principal) ==

== ENCOUNTER 2019-03-15 11:43 | Emergency (ER) | payer MEDICARE ==
[2019-03-15] MEDS ORDERED: SOAP SUDS ENEMA 1 EACH RC ONE (12:50)
[2019-03-15] MEDS ORDERED: HYDROmorphone 2 MG/ML VIAL IM STA (12:50)
--- NOTE | 2019-03-15 13:11 | ED Physician Documentation ---
History of Present Illness - Stated complaint Stated Complaint: BACK PX/CONSTIPATED - Chief complaint Chief Complaint: Back Pain - History obtained from History obtained from: Patient - History of Present Illness Timing: Chronic Pain level max: 7 Pain level now: 7 Severity Comments: moderate severity Quality: aching Radiates to: does not radiate Improved by: nothing Worsened by: movement Associated symptoms: low mid back pain across his lower back, no numbness or weakness. Pt has constipation as well. Last BM was 2 weeks ago. No vomiting or nausea. Feels like his stomach is full. he is on chronic narcotics for his back pain and prostate cancer pain. - Treatment prior to arrival Treatment prior to arrival: his oxycodone at home Review of Systems Ten Systems: 10 systems reviewed and negative Constitutional: denies: Fever, Chills Cardiac: denies: Chest pain / pressure Respiratory: denies: Dyspnea GI: reports: Constipation. denies: Abdominal Pain, Nausea, Vomiting, Diarrhea, Hematemesis, Bloody / black stool : denies: Dysuria, Frequency, Hesitancy Skin: reports: Reviewed and negative Musculoskeletal: reports: Back pain Neurologic: denies: Generalized weakness, Focal weakness, Numbness PD PAST MEDICAL HISTORY - Past Medical History Past Medical History: Yes Cardiovascular: None, Hypertension Respiratory: Pneumonia Neuro: None, Headaches Endocrine/Autoimmune: None, HyPOthyroidism GI: GERD MEDICAL RECORD SPECIALIST: None : Benign prostate hypertrophy, Renal insuffiency, Nocturia HEENT: Chronic sinusitis Psych: Depression, Anxiety, Post traumatic stress disorder Musculoskeletal: Osteoarthritis, Gout, Fatigue, Chronic back pain Derm: None - Past Surgical History Past Surgical History: Yes General: Colonoscopy Ortho: Spine surgery Cardiovascular: Vascular surgery - Present Medications Home Medications: Ambulatory Orders Medication Instructions Recorded Confirmed Bicalutamide 50 mg PO DAILY 11/06/18 02/06/19 Ondansetron Odt [Zofran Odt] 1 tab PO PRN PRN 11/06/18 02/06/19 Omeprazole 20 mg PO DAILY 11/07/18 02/06/19 traZODone [Desyrel] 50 - 100 mg PO HS 11/07/18 02/06/19 Acetaminophen [Tylenol] 650 mg PO Q4HR PRN tablet 11/09/18 02/06/19 Calcium Carbonate [Tums (Calcium 500 mg PO TID PRN tablet 11/09/18 02/06/19 Carbonate 500mg)] Docusate Sodium 250Mg Capsule 250 - 500 mg PO DAILY capsule 11/09/18 02/06/19 [Colace 250Mg Capsule] Ferrous Gluconate 240 mg PO DAILY #30 tablet 11/09/18 02/06/19 Polyethylene Glycol 3350 [Miralax] 17 gm PO DAILY packet 11/09/18 02/06/19 Senna [Senokot] 8.6 - 17.2 mg PO DAILY tablet 11/09/18 02/06/19 oxyCODONE [Roxicodone] 2 tab PO TID PRN 12/12/18 02/06/19 Na Phos,M-B/Na Phos,Di-Ba [Enema] 133 ml RC DAILY PRN #4 enema 03/15/19 Polyethylene Glycol 3350 [Miralax] 17 gm PO DAILY #1 bottle 03/15/19 - Allergies Allergies/Adverse Reactions: Allergies Allergy/AdvReac Type Severity Reaction Status Date / Time codeine [Codeine] Allergy Intermediate Rash Verified 03/15/19 11:56 Sulfa (Sulfonamide AdvReac Intermediate Emesis Verified 03/15/19 11:56 Antibiotics) - Social History Does the pt smoke?: No Smoking Status: Never smoker Does the pt drink ETOH?: Yes Does the pt have substance abuse?: No - Immunizations Immunizations are current?: Yes Immunizations: TDAP current <10years - POLST Patient has POLST: No POLST Status: Full Code PD ED PE NORMAL - Vitals Vital signs reviewed: Yes - General General: Alert and oriented X 3, No acute distress, Well developed/nourished - HEENT HEENT: Atraumatic, Pharynx benign - Neck Neck: Supple, no meningeal sign, No JVD - Cardiac Cardiac: RRR, No murmur, No gallop, No rub - Respiratory Respiratory: No respiratory distress, Clear bilaterally - Abdomen Abdomen: Soft, Non tender, Non distended - Male Male : Deferred - Rectal Rectal: Deferred - Back Back: No CVA TTP, No spinal TTP, Other (no tenderness in the back ) - Derm Derm: Normal color, Warm and dry, No rash - Extremities Extremities: No deformity, No tenderness to palpate, Normal ROM s pain, No edema, No calf tenderness / cord - Neuro Neuro: Alert and oriented X 3, No sensory deficit, Other (normal gait ) Eye Opening: Spontaneous Motor: Obeys Commands Verbal: Oriented GCS Score: 15 - Psych Psych: Normal affect Results - Vitals Vitals: Vital Signs - 24 hr 03/15/19 11:48 Temperature 37.1 C Heart Rate 100 Respiratory 18 Rate Blood Pressure 127/95 H O2 Saturation 97 Oxygen O2 Source Room air PD MEDICAL DECISION MAKING - ED course Complexity details: considered differential ED course: ddx - constipation, low back muscle strain, radiculopathy, chronic pain, cancer associated pain, vertebral metastasis or fracture. 63 y/o M with hx of prostate cancer currently receiving lupron injections for his cancer treatment has chronic low back pain that he reports is worse recently and not improving with oxycodone. He has no neuro symptoms. He has constipation for several weeks and does not know his bowel regimen, denies taking miralax, states he takes 3 things. Does not know what the 3 things are. His abdomen here is minimally distended, soft, without tenderness. He has had no vomiting, doubt obstruction. Will give trial of enema here. Pt did have a BM with the enema here and is feeling less distended. Will give script for additional enemas as well and pt to continue miralax at home. Departure - Departure Disposition: 01 Home, Self Care Clinical Impression: Constipation due to pain medication Back pain Qualifiers: Back pain location: low back pain Chronicity: chronic Back pain laterality: bilateral Sciatica presence: without sciatica Qualified Code(s): M54.5 - Low back pain Condition: Stable Record reviewed to determine appropriate education?: Yes Instructions: ED Constipation Follow-Up: your, doctor [Other] Prescriptions: Na Phos,M-B/Na Phos,Di-Ba [Enema] 133 ml RC DAILY PRN #4 enema PRN Reason: Constipation Polyethylene Glycol 3350 [Miralax] 17 gm PO DAILY #1 bottle Comments: You were evaluated today for back pain and constipation. You can take miralax once and up to 2-3 times a day for constipation until you have a bowel movement. Continue your docusate. You can also try the prescribed enemas if you are still constipated despite usi ng the miralax. Follow up with your PCP to further manage your pain and constipation.
[2019-03-15 14:48] VITALS: BP 115/77
== END 2019-03-15 14:48 | disposition home or self-care (01) ==
LOC: ED 11:43
DX: K59.03 Drug induced constipation (principal); T40.2X5A Adverse effect of other opioids, initial encounter; M54.5 Low back pain; G89.29 Other chronic pain; C61 Malignant neoplasm of prostate; I10 Essential (primary) hypertension
CPT/HCPCS: 96372; 99283; A9270; J1170

== ENCOUNTER 2019-03-18 09:03 | Outpatient (CLI) | payer MEDICARE | END 2019-03-18 09:04 | disposition critical access hospital (66) | LOC: EMS 09:03 | PROVIDERS: ATTEND Surgery | DX: M54.5 Low back pain (principal); M79.604 Pain in right leg; R20.0 Anesthesia of skin | CPT/HCPCS: A0425; A0429 ==

== ENCOUNTER 2019-03-18 09:23 | Emergency (ER) | payer MEDICARE ==
--- NOTE | 2019-03-18 09:39 | ED Physician Documentation ---
History of Present Illness - Stated complaint Stated Complaint: PAIN - Chief complaint Chief Complaint: General - History obtained from History obtained from: Patient - Additonal information Additional information: Patient is a 63-year-old male with history of metastatic prostate cancer on chronic narcotic pain regimen presenting to the ED with persistent pain. Patient was seen here 3 days ago with similar complaints and concerns for constipation. Patient has chronic issues with constipation likely due to his narcotic use and does have a bowel regimen available to him at home. Today, patient states that he is still experiencing low back pain which is similar to previous episodes. Patient denies new inciting incident, trauma, or fall. Patient also denies abdominal pain, nausea, vomiting, urinary changes, or stool changes including no bowel movements. Patient denies any loss of sensation, strength, range of motion to his lower extremities. Patient has not followed up with his primary care physician or oncologist. Patient does continue to use oxycodone at home. No other improving or worsening factors noted. 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 : Benign prostate hypertrophy, Renal insuffiency, Nocturia HEENT: Chronic sinusitis Psych: Depression, Anxiety, Post traumatic stress disorder Musculoskeletal: Osteoarthritis, Gout, Fatigue, Chronic back pain Derm: None - Past Surgical History Past Surgical History: Yes General: Colonoscopy Ortho: Spine surgery Cardiovascular: Vascular surgery - Present Medications Home Medications: Ambulatory Orders Medication Instructions Recorded Confirmed Acetaminophen [Tylenol] 650 mg PO Q4HR PRN tablet 11/09/18 02/06/19 Docusate Sodium 250Mg Capsule 250 - 500 mg PO DAILY capsule 11/09/18 02/06/19 [Colace 250Mg Capsule] Ferrous Gluconate 240 mg PO DAILY #30 tablet 11/09/18 02/06/19 Senna [Senokot] 8.6 - 17.2 mg PO DAILY tablet 11/09/18 02/06/19 oxyCODONE [Roxicodone] 2 tab PO TID PRN 12/12/18 02/06/19 Polyethylene Glycol 3350 [Miralax] 17 gm PO DAILY #1 bottle 03/15/19 - Allergies Allergies/Adverse Reactions: Allergies Allergy/AdvReac Type Severity Reaction Status Date / Time codeine [Codeine] Allergy Intermediate Rash Verified 03/18/19 09:34 Sulfa (Sulfonamide AdvReac Intermediate Emesis Verified 03/18/19 09:34 Antibiotics) - Social History Does the pt smoke?: No Smoking Status: Never smoker Does the pt drink ETOH?: Yes Does the pt have substance abuse?: No - Immunizations Immunizations are current?: Yes Immunizations: TDAP current <10years - POLST Patient has POLST: No POLST Status: Full Code PD ED PE NORMAL - Vitals Vital signs reviewed: Yes - General General: Alert and oriented X 3, No acute distress, Well developed/nourished - HEENT HEENT: Atraumatic, Moist mucous membranes - Cardiac Cardiac: RRR, No murmur - Respiratory Respiratory: No respiratory distress, Clear bilaterally - Abdomen Abdomen: Normal bowel sounds, Soft, Non tender, Non distended - Back Back: No: No spinal TTP (Midline lumbar pain with palpation) - Derm Derm: Normal color, Warm and dry, No rash - Extremities Extremities: No deformity, No tenderness to palpate - Neuro Neuro: Alert and oriented X 3, No motor deficit, No sensory deficit - Psych Psych: Normal mood, Normal affect Results - Vitals Vitals: Vital Signs - 24 hr 03/18/19 03/18/19 03/18/19 09:25 09:30 10:15 Temperature 36.2 C L Heart Rate 100 100 100 Respiratory 18 18 16 Rate Blood Pressure 133/95 H 130/90 H 121/81 H O2 Saturation 94 95 93 03/18/19 03/18/19 03/18/19 10:30 11:00 11:30 Temperature Heart Rate 95 94 90 Respiratory 16 16 16 Rate Blood Pressure 136/94 H 130/92 H 119/88 H O2 Saturation 96 97 94 03/18/19 12:00 Temperature Heart Rate 90 Respiratory 16 Rate Blood Pressure O2 Saturation 94 Oxygen O2 Source Room air - Labs Labs: Laboratory Tests 03/18/19 03/18/19 03/18/19 10:25 10:25 12:04 WBC 15.2 H RBC 5.17 Hgb 12.9 L Hct 40.4 L MCV 78.1 L MCH 24.9 L MCHC 31.9 L RDW 17.6 H Plt Count 203 MPV 6.8 L Neut # (Auto) Not Reportable Lymph # (Auto) Not Reportable [place] # (Auto) Not Reportable Eos # (Auto) Not Reportable Baso # (Auto) Not Reportable Absolute Nucleated RBC Not Reportable Total Counted 100 Band Neuts % (Manual) 3 Reactive Lymphs % (Man) 11 Abnorm Lymph % (Manual) 0 Metamyelocytes % 1 H Myelocytes % 3 H Nucleated RBC % Not Reportable Neutrophils # (Manual) 9.9 H Lymphocytes # (Manual) 4.4 H Monocytes # (Manual) 0.3 Eosinophils # (Manual) 0.0 Basophils # (Manual) 0.0 Nucleated RBCs 1 Differential Comment MANUAL DIFFERENTIAL Manual Slide Review Indicated RBC Morph Micro Appear 3+ ANISOCYTOSIS Sodium 133 L Potassium 3.9 Chloride 94 L Carbon Dioxide 24 Anion Gap 15.0 H BUN 21 H Creatinine 1.0 Estimated GFR (MDRD) 75 L Glucose 117 H Calcium 9.3 Total Bilirubin 0.5 AST 85 H ALT 22 Alkaline Phosphatase 224 H Total Protein 7.6 Albumin 3.1 L Globulin 4.5 H Albumin/Globulin Ratio 0.7 L Lipase 22 Urine Color YELLOW Urine Clarity CLEAR Urine pH 5.5 Ur Specific [place] <=1.005 Urine Protein NEGATIVE Urine Glucose (UA) NEGATIVE Urine Ketones NEGATIVE Urine Occult Blood NEGATIVE Urine Nitrite NEGATIVE Urine Bilirubin NEGATIVE Urine Urobilinogen 0.2 (NORMAL) Ur Leukocyte Esterase NEGATIVE Ur Microscopic Review NOT INDICATED Urine Culture Comments NOT INDICATED PD MEDICAL DECISION MAKING - ED course Complexity details: reviewed old records, reviewed results, re-evaluated patient, considered differential, d/w patient ED course: Patient is presenting with acute on chronic pain likely related to his metastatic prostate cancer. Upon chart review, it appears that patient has known mets to the bone, which is likely the cause of his lower back pain. Given no significant changes to his underlying pain, as well as no new injury or trauma, do not feel patient required new imaging today. Patient also discussed that physicians have been discussing him going into palliative care particularly given his continued struggle with pain. Gave patient both Toradol and Dilaudid here which provided significant relief and patient much more comfortable. Obtained screening lab work and urinalysis which returned relatively unremarkable except for changes reflective of his underlying disease process including leukocytosis, which is similar to previous and likely due to his steroid use as opposed to infection or sepsis. Do not feel patient requires urgent consult, hospitalization, new medications or other interventions at this time. Feel he is safe to discharge home but emphasized need for close follow-up and further discussions of long-term pain control. Patient agrees and is amenable to this plan. Patient's to come to the ED to provide him a ride home. Departure - Departure Disposition: Home, Self Care Clinical Impression: Acute pain Condition: Good Instructions: ED Chronic Pain Management Follow-Up: Artie Sosa MD [Provider Admit Priv/Credential] - Within 3 Days Comments: Please continue all home medications as previously instructed. Recommend contacting your primary care physician and oncologist tomorrow to discuss long- term pain control. Return to the ED sooner if you experience worsening symptoms or have other concerns.
[2019-03-18] MEDS ORDERED: KETOROLAC 30 MG/ML VIAL IVP STA (09:43)
[2019-03-18] MEDS ORDERED: SODIUM CHLORIDE 0.9% 1,000 ML IV ONE (09:43)
[2019-03-18] MEDS ORDERED: HYDROmorphone 1 MG/ML CARPUJECT IVP STA (09:43)
[2019-03-18 10:37] LABS: BASOPHILS % (AUTO) 0.6 %; EOSINOPHILS % (AUTO) 0.4 %; HGB - HEMOGLOBIN 12.9 g/dL (14.0-18.0); LYMPHOCYTES % (AUTO) 23.2 %; MEAN CORPUSCULAR HEMOGLOBIN 24.9 pg (27.0-31.0); MEAN CORPUSCULAR HGB CONC 31.9 g/dL (32.0-36.0); MEAN CORPUSCULAR VOLUME 78.1 fL (80.0-94.0); MEAN PLATELET VOLUME 6.8 fL (7.4-11.4); MONOCYTES % (AUTO) 4.3 %; NEUTROPHILS % (AUTO) 71.5 %; PLT - PLATELET COUNT 203 10^3/uL (130-450); RED BLOOD COUNT 5.17 10^6/uL (4.70-6.10); RED CELL DISTRIBUTION WIDTH 17.6 % (12.0-15.0); WHITE BLOOD COUNT 15.2 x10^3/uL (4.8-10.8)
[2019-03-18 10:47] LABS: ALBUMIN 3.1 g/dL (3.2-5.5); ALBUMIN/GLOBULIN RATIO 0.7 (1.0-2.2); BILIRUBIN,TOTAL 0.5 mg/dL (0.2-1.0); CALCIUM 9.3 mg/dL (8.5-10.3); TOTAL PROTEIN 7.6 g/dL (6.7-8.2)
[2019-03-18 11:03] LABS: ABNORMAL LYMPHS % (MANUAL) 0 %
[2019-03-18 11:07] LABS: BAND NEUTROPHILS % (MANUAL) 3 %; DIFFERENTIAL COMMENT MANUAL DIFFERENTIAL; LYMPHOCYTES # (MANUAL) 4.4 10^3/uL (1.5-3.5); LYMPHOCYTES % (MANUAL) 18 %; METAMYELOCYTES % (MANUAL) 1 %; MONOCYTES # (MANUAL) 0.3 10^3/uL (0.0-1.0); MYELOCYTES % (MANUAL) 3 %; NEUTROPHILS # (MANUAL) 9.9 10^3/uL (1.5-6.6); NEUTROPHILS % (MANUAL) 62 %; RBC MORPHOLOGY (MULTIPLE) 3+ ANISOCYTOSIS (NORMAL)
[2019-03-18 12:39] LABS: BILIRUBIN,URINE NEGATIVE (NEGATIVE); GLUCOSE, URINE (UA) NEGATIVE (NEGATIVE); KETONES,URINE (UA) NEGATIVE (NEGATIVE); LEUKOCYTE ESTERASE, URINE NEGATIVE (NEGATIVE); NITRITE,URINE NEGATIVE (NEGATIVE); OCCULT BLOOD,URINE NEGATIVE (NEGATIVE); PH,URINE 5.5 PH (5.0-7.5); PROTEIN,URINE NEGATIVE (NEGATIVE); UROBILINOGEN,URINE 0.2 (NORMAL) E.U./dL (NORMAL)
[2019-03-18 12:41] LABS: CLARITY,URINE CLEAR (CLEAR)
[2019-03-18 13:17] VITALS: BP 154/112
== END 2019-03-18 13:18 | disposition home or self-care (01) ==
LOC: EDUNIT# → ED 09:23
DX: M54.5 Low back pain (principal); G89.3 Neoplasm related pain (acute) (chronic); C61 Malignant neoplasm of prostate; C79.51 Secondary malignant neoplasm of bone; Z79.891 Long term (current) use of opiate analgesic; I10 Essential (primary) hypertension
CPT/HCPCS: 36415; 80053; 81003; 83690; 85025; 96361; 96374; 96375; 99282; 99284; J1170; 81001; 87086

== ENCOUNTER 2019-03-22 15:42 | Outpatient (CLI) | payer MEDICARE | END 2019-03-22 15:43 | disposition critical access hospital (66) | LOC: EMS 15:42 | PROVIDERS: ATTEND Surgery | DX: R10.30 Lower abdominal pain, unspecified (principal); M54.5 Low back pain | CPT/HCPCS: A0425; A0429 ==

== ENCOUNTER 2019-03-22 16:02 | Emergency (ER) | payer MEDICARE ==
--- NOTE | 2019-03-22 16:16 | ED Physician Documentation ---
History of Present Illness - Stated complaint Stated Complaint: CONSTIPATION - Chief complaint Chief Complaint: Abd Pain - History obtained from History obtained from: Patient, EMS - History of Present Illness Timing: Today Pain level max: 6 Pain level now: 6 - Additonal information Additional information: 63-year-old male with a history of prostate cancer states that he has been constipated for the past 5 to 7 days. States he took MiraLAX once without relief. Has not had any vomiting. No fevers. Is having chronic back pain. No changes to this. No numbness or tingling. No fevers. Nothing makes it better or worse. 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 : Benign prostate hypertrophy, Renal insuffiency, Nocturia HEENT: Chronic sinusitis Psych: Depression, Anxiety, Post traumatic stress disorder Musculoskeletal: Osteoarthritis, Gout, Fatigue, Chronic back pain Derm: None - Past Surgical History Past Surgical History: Yes General: Colonoscopy Ortho: Spine surgery Cardiovascular: Vascular surgery - Present Medications Home Medications: Ambulatory Orders Medication Instructions Recorded Confirmed Acetaminophen [Tylenol] 650 mg PO Q4HR PRN tablet 11/09/18 02/06/19 Docusate Sodium 250Mg Capsule 250 - 500 mg PO DAILY capsule 11/09/18 02/06/19 [Colace 250Mg Capsule] Ferrous Gluconate 240 mg PO DAILY #30 tablet 11/09/18 02/06/19 Senna [Senokot] 8.6 - 17.2 mg PO DAILY tablet 11/09/18 02/06/19 oxyCODONE [Roxicodone] 2 tab PO TID PRN 12/12/18 02/06/19 Polyethylene Glycol 3350 [Miralax] 17 gm PO DAILY #1 bottle 03/15/19 Polyethylene Glycol 3350 [Miralax] 17 gm PO DAILY PRN #1 bottle 03/22/19 - Allergies Allergies/Adverse Reactions: Allergies Allergy/AdvReac Type Severity Reaction Status Date / Time codeine [Codeine] Allergy Intermediate Rash Verified 03/18/19 09:34 Sulfa (Sulfonamide AdvReac Intermediate Emesis Verified 03/18/19 09:34 Antibiotics) - Social History Does the pt smoke?: No Smoking Status: Never smoker Does the pt drink ETOH?: Yes Does the pt have substance abuse?: No - Immunizations Immunizations are current?: Yes Immunizations: TDAP current <10years - POLST Patient has POLST: No POLST Status: Full Code PD ED PE NORMAL - Vitals Vital signs reviewed: Yes - General General: Alert and oriented X 3, No acute distress, Well developed/nourished - HEENT HEENT: PERRL, Moist mucous membranes - Neck Neck: Supple, no meningeal sign - Cardiac Cardiac: RRR, Strong equal pulses - Respiratory Respiratory: No respiratory distress, Clear bilaterally - Abdomen Abdomen: Soft, Non tender, Non distended - Rectal Rectal: Pt declined - Derm Derm: Warm and dry - Extremities Extremities: No edema - Neuro Neuro: Alert and oriented X 3 - Psych Psych: Normal mood, Normal affect Results - Vitals Vitals: Vital Signs - 24 hr 03/22/19 18:13 Temperature 36.6 C Heart Rate 125 H Respiratory 28 H Rate Blood Pressure 111/82 H O2 Saturation 95 Oxygen O2 Source Room air PD MEDICAL DECISION MAKING - ED course Complexity details: re-evaluated patient, considered differential, d/w patient ED course: Patient received 120 10 mg oxycodone pills on March 01 Patient appears to have opiate-induced constipation. Given an enema with good results. Was given a dose of oxycodone for his chronic back pain. We will add MiraLAX. No neurological deficits. No evidence of acute fracture or cauda equina. Patient counseled regarding signs and symptoms for which I believe and urgent re-evaluation would be necessary. Patient with good understanding of and agreement to plan and is comfortable going home at this time This document was made in part using voice recognition software. While efforts are made to proofread this document, sound alike and grammatical errors may occur. Abdomen is soft, nontender nondistended on serial exam Departure - Departure Disposition: 01 Home, Self Care Clinical Impression: Constipation Qualifiers: Constipation type: unspecified constipation type Qualified Code(s): K59.00 - Constipation, unspecified Chronic back pain Qualifiers: Back pain location: low back pain Back pain laterality: unspecified Sciatica presence: without sciatica Qualified Code(s): M54.5 - Low back pain Condition: Good Health Concerns: constipation Plan of Treatment: laxatives, enema Care Goals: bowel movement. Assessment: acheived Instructions: ED Constipation Follow-Up: your,doctor in 3 days. [Other] Prescriptions: Polyethylene Glycol 3350 [Miralax] 17 gm PO DAILY PRN #1 bottle PRN Reason: Constipation Comments: Return if you worsen. Follow-up with your doctor for further refills of your pain medication. Drink plenty of water. The constipation is likely from the narcotics Discharge Date/Time: 03/22/19 18:56
[2019-03-22] MEDS ORDERED: traMADol 50 MG TABLET PO STA (16:25)
[2019-03-22] MEDS ORDERED: SALINE ENEMA 133 ML BOTTLE RC STA (16:26)
[2019-03-22] MEDS ORDERED: MAGNESIUM CITRATE 296 ML BOTTLE PO STA (16:26)
[2019-03-22 18:14] VITALS: BP 111/82
[2019-03-22] MEDS ORDERED: KETOROLAC 60 MG/2 ML VIAL IM STA (18:27)
[2019-03-22] MEDS ORDERED: oxyCODONE 5 MG TABLET PO STA (18:27)
== END 2019-03-22 18:56 | disposition home or self-care (01) ==
LOC: EDUNIT# → ED 16:02
DX: K59.00 Constipation, unspecified (principal); M54.5 Low back pain; G89.29 Other chronic pain; I10 Essential (primary) hypertension; Z85.46 Personal history of malignant neoplasm of prostate; Z79.891 Long term (current) use of opiate analgesic
CPT/HCPCS: 96372; 99283; A9270

== ENCOUNTER 2019-04-01 12:21 | Outpatient (CLI) | payer MEDICARE | END 2019-04-01 12:22 | disposition critical access hospital (66) | LOC: EMS 12:21 | PROVIDERS: ATTEND Surgery | DX: R53.1 Weakness (principal); M54.5 Low back pain | CPT/HCPCS: A0425; A0429 ==

== ENCOUNTER 2019-04-01 12:42 | Emergency (ER) | payer MEDICARE ==
[2019-04-01] MEDS ORDERED: HYDROmorphone 1 MG/ML CARPUJECT IVP STA ×3 (12:59→16:24)
[2019-04-01] MEDS ORDERED: SODIUM CHLORIDE 0.9% 1,000 ML IV ONE ×2 (12:59→13:35)
--- NOTE | 2019-04-01 13:02 | ED Physician Documentation ---
History of Present Illness - Stated complaint Stated Complaint: WEAKNESS - Chief complaint Chief Complaint: General - History obtained from History obtained from: Patient, EMS - History of Present Illness Timing: Last night (63-year-old gentleman with active prostate cancer on Lupron treatment. It sounds like he is also supposed to be on oral chemotherapy but has had some problems coordinating with the pharmacy. He also has a history of methamphetamine abuse but has not used in about a month. Since last night he said increased low back pain where he is known to have cancer despite taking his oxycodone at home. He is noted to be tachycardic and hypoxic but denies shortness of breath or cough. He denies pedal edema or calf pain. He denies radiation of the back pain into the legs, although he says he thinks that will start soon. He denies bowel or bladder incontinence but does complain of constipation. No fevers.) Review of Systems Ten Systems: 10 systems reviewed and negative Constitutional: denies: Fever, Chills Nose: denies: Rhinorrhea / runny nose, Congestion Cardiac: denies: Chest pain / pressure, Palpitations Respiratory: denies: Dyspnea, Cough GI: reports: Constipation. 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 : Benign prostate hypertrophy, Renal insuffiency, Nocturia HEENT: Chronic sinusitis Psych: Depression, Anxiety, Post traumatic stress disorder Musculoskeletal: Osteoarthritis, Gout, Fatigue, Chronic back pain Derm: None - Past Surgical History Past Surgical History: Yes General: Colonoscopy Ortho: Spine surgery Cardiovascular: Vascular surgery - Present Medications Home Medications: Ambulatory Orders Medication Instructions Recorded Confirmed Acetaminophen [Tylenol] 650 mg PO Q4HR PRN tablet 11/09/18 02/06/19 Docusate Sodium 250Mg Capsule 250 - 500 mg PO DAILY capsule 11/09/18 02/06/19 [Colace 250Mg Capsule] Ferrous Gluconate 240 mg PO DAILY #30 tablet 11/09/18 02/06/19 Senna [Senokot] 8.6 - 17.2 mg PO DAILY tablet 11/09/18 02/06/19 oxyCODONE [Roxicodone] 2 tab PO TID PRN 12/12/18 02/06/19 Polyethylene Glycol 3350 [Miralax] 17 gm PO DAILY #1 bottle 03/15/19 Polyethylene Glycol 3350 [Miralax] 17 gm PO DAILY PRN #1 bottle 03/22/19 - Allergies Allergies/Adverse Reactions: Allergies Allergy/AdvReac Type Severity Reaction Status Date / Time codeine [Codeine] Allergy Intermediate Rash Verified 03/18/19 09:34 Sulfa (Sulfonamide AdvReac Intermediate Emesis Verified 04/01/19 12:47 Antibiotics) - Social History Does the pt smoke?: No Smoking Status: Never smoker Does the pt drink ETOH?: Yes Does the pt have substance abuse?: No - Immunizations Immunizations are current?: Yes Immunizations: TDAP current <10years - POLST Patient has POLST: No POLST Status: Full Code PD ED PE NORMAL - Vitals Vital signs reviewed: Yes - General General: Alert and oriented X 3, Other (Appears listless and slightly cachectic but cooperative. He is hypoxic and tachycardic.) - HEENT HEENT: PERRL, EOMI - Neck Neck: Supple, no meningeal sign, No bony TTP - Cardiac Cardiac: Other (Tachycardic, no murmur, clear lungs) - Respiratory Respiratory: No respiratory distress - Abdomen Abdomen: Soft, Non tender - Back Back: No spinal TTP - Derm Derm: Normal color, Warm and dry - Extremities Extremities: No edema, No calf tenderness / cord, Other (The patient has equal and normal Achilles and patellar reflexes bilaterally. Normal sensation in all areas of the legs. Patient denies saddle anesthesia. Normal strength in flexion-extension at the ankles, knees, and flexion of the hips.) - Neuro Neuro: Alert and oriented X 3, Normal speech - Psych Psych: Normal mood, Normal affect Results - Vitals Vitals: Vital Signs - 24 hr 04/01/19 04/01/19 04/01/19 12:43 12:51 14:47 Temperature 36.5 C Heart Rate 111 H 108 H 113 H Respiratory 20 20 18 Rate Blood Pressure 127/99 H 126/94 H 91/57 L O2 Saturation 84 L 92 96 04/01/19 04/01/19 16:00 16:13 Temperature Heart Rate 114 H Respiratory 18 Rate Blood Pressure 136/82 H O2 Saturation 95 95 Oxygen O2 Source Oxymask Oxygen Flow Rate 4 - EKG (time done) 1545 Rate: Rate (enter#) (115) Rhythm: Sinus tachycardia [place]: Normal QRS: Low voltage Ischemia: Non specific changes. No: ST elevation c/w ischemia, ST elevation c/w repol, ST depression Computer interpretation: Agree with computer - Labs Labs: Laboratory Tests 04/01/19 04/01/19 04/01/19 14:46 14:46 14:46 WBC RBC Hgb Hct MCV MCH MCHC RDW Plt Count Neut # (Auto) Lymph # (Auto) Mcleod # (Auto) Eos # (Auto) Baso # (Auto) Absolute Nucleated RBC Nucleated RBC % Manual Slide Review Platelet Estimate Platelet Morphology RBC Morph Micro Appear PT 16.4 H INR 1.5 H VBG pH VBG pCO2 VBG pO2 VBG HCO3 VBG Total CO2 VBG O2 Saturation VBG Base Excess VBG Total Hgb VBG Oxyhemoglobin VBG Carboxyhemoglobin VBG Methemoglobin Sodium 137 Potassium 4.1 Chloride 102 Carbon Dioxide 20 L Anion Gap 15.0 H BUN 19 Creatinine 0.9 Estimated GFR (MDRD) 85 L Glucose 111 H Lactic Acid Calcium 8.8 Total Bilirubin 0.8 AST 88 H ALT 17 Alkaline Phosphatase 260 H Total Creatine Kinase 549 H CK-MB (CK-2) 3.3 Troponin I 0.39 Total Protein 6.8 Albumin 2.9 L Globulin 3.9 Albumin/Globulin Ratio 0.7 L Lipase 22 04/01/19 04/01/19 04/01/19 14:46 14:46 14:46 WBC RBC Hgb Hct MCV MCH MCHC RDW Plt Count Neut # (Auto) Lymph # (Auto) Mcleod # (Auto) Eos # (Auto) Baso # (Auto) Absolute Nucleated RBC Nucleated RBC % Manual Slide Review Platelet Estimate Platelet Morphology RBC Morph Micro Appear PT INR VBG pH 7.365 VBG pCO2 36.5 L VBG pO2 31.5 VBG HCO3 20.4 L VBG Total CO2 21.5 L VBG O2 Saturation 57.6 L VBG Base Excess -4.4 L VBG Total Hgb 12.1 VBG Oxyhemoglobin 57 L VBG Carboxyhemoglobin 1.0 VBG Methemoglobin 0.3 Sodium Potassium Chloride Carbon Dioxide Anion Gap BUN Creatinine Estimated GFR (MDRD) Glucose Lactic Acid 1.9 Calcium Total Bilirubin AST ALT Alkaline Phosphatase Total Creatine Kinase CK-MB (CK-2) Troponin I Total Protein Albumin Globulin Albumin/Globulin Ratio Lipase 04/01/19 04/01/19 15:35 15:35 WBC 12.6 H RBC 4.44 L Hgb 11.2 L Hct 35.3 L MCV 79.5 L MCH 25.2 L MCHC 31.7 L RDW 16.3 H Plt Count 70 L Neut # (Auto) 7.1 H Lymph # (Auto) 4.0 H Mcleod # (Auto) 0.6 Eos # (Auto) 0.1 Baso # (Auto) 0.1 Absolute Nucleated RBC 0.12 Nucleated RBC % 1.0 Manual Slide Review Indicated Platelet Estimate DECREASED (<130,000) Platelet Morphology 2+ GIANT PLATELETS RBC Morph Micro Appear 3+ POIKILOCYTOSIS PT INR VBG pH VBG pCO2 VBG pO2 VBG HCO3 VBG Total CO2 VBG O2 Saturation VBG Base Excess VBG Total Hgb VBG Oxyhemoglobin VBG Carboxyhemoglobin VBG Methemoglobin Sodium Potassium Chloride Carbon Dioxide Anion Gap BUN Creatinine Estimated GFR (MDRD) Glucose Lactic Acid Calcium Total Bilirubin AST ALT Alkaline Phosphatase Total Creatine Kinase CK-MB (CK-2) Troponin I 0.39 Total Protein Albumin Globulin Albumin/Globulin Ratio Lipase - Rads (name of study) ct hEAD Radiology: EMP read contemporaneously (SKULL METS, BRAIN NL) cT cHEST ANGIO Radiology: EMP read contemporaneously (Sense of bilateral small disease consistent with metastatic disease, infection or drug-induced. No PE.) CT L SPINE Radiology: EMP read contemporaneously (Multifocal mets of the spine without evidence of spinal cord impingement) PD MEDICAL DECISION MAKING - ED course ED course: This is a 63-year-old gentleman with metastatic prostate cancer who presents with uncontrolled pain in his back. He is also noted to be hypoxemic and hypotensive. He denies any chest pain or trouble breathing, and his only complaint is back pain which was treated with divided doses of narcotics here with minimal relief. CT of the lumbar shot spine shows multiple areas of metastatic disease but without evidence of spinal cord compression. Given his vital signs suspicion for pulmonary embolus and was high given his active cancer and CT pulmonary angiogram was done without findings of PE but he did have bibasilar nodular disease with differential diagnosis including drug-induced, metastatic disease, or to atypical infection. He also has a borderline troponin at 0.39 and this was subsequently rechecked without change. An EKG was nonischemic. Case was discussed by phone with the hospitalist here, Dr. DILLON who talked with the oncologist on-call for his who felt that he needed transfer for pulmonology consultation and [facility] was called for potential transfer at 4:21 PM given the lack of pulmonology here. His oxygen requirement was significant, requiring at least 4 L to maintain his saturations. Methemoglobinemia was also considered but this was negative. He was cultured up. His lactate is normal. He was given IV antibiotics, cefepime and vancomycin after blood cultures for potential pneumonia. He was accepted to [facility] in transfer by the hospitalist, Dr. Gil Wolf at 4:40 PM and cobras were completed. He is stable for transport. He does need transfer to a higher level of care for potential pulmonology consul tation. Departure - Departure Disposition: 02 Transfer Acute Care Hosp Clinical Impression: Stage IV adenocarcinoma of prostate, Elevated troponin, Hypoxemia Hypotension Qualifiers: Hypotension type: unspecified hypotension type Qualified Code(s): I95.9 - Hypotension, unspecified Condition: Serious
[2019-04-01] MEDS ORDERED: IOVERSOL 320 100 ML VIAL IVP ONE ×2 (13:21→14:00)
[2019-04-01 15:16] LABS: INR 1.5 (0.8-1.2); PT - PROTHROMBIN TIME 16.4 secs (9.9-12.6)
[2019-04-01 15:18] LABS: ALBUMIN 2.9 g/dL (3.2-5.5); ALBUMIN/GLOBULIN RATIO 0.7 (1.0-2.2); BILIRUBIN,TOTAL 0.8 mg/dL (0.2-1.0); CALCIUM 8.8 mg/dL (8.5-10.3); CREATININE 0.9 mg/dL (0.6-1.2); TOTAL PROTEIN 6.8 g/dL (6.7-8.2)
[2019-04-01 15:22] LABS: TROPONIN I 0.39 ng/mL (<0.49)
[2019-04-01 15:23] LABS: BASOPHILS # (AUTO) 0.1 10^3/uL (0.0-0.1); BASOPHILS % (AUTO) 0.6 %; EOSINOPHILS # (AUTO) 0.1 10^3/uL (0.0-0.7); EOSINOPHILS % (AUTO) 0.4 %; HGB - HEMOGLOBIN 11.2 g/dL (14.0-18.0); LYMPHOCYTES % (AUTO) 31.4 %; MEAN CORPUSCULAR HEMOGLOBIN 25.2 pg (27.0-31.0); MEAN CORPUSCULAR HGB CONC 31.7 g/dL (32.0-36.0); MEAN CORPUSCULAR VOLUME 79.5 fL (80.0-94.0); MONOCYTES # (AUTO) 0.6 10^3/uL (0.0-1.0); MONOCYTES % (AUTO) 4.4 %; NEUTROPHILS # (AUTO) 7.1 10^3/uL (1.5-6.6); NEUTROPHILS % (AUTO) 56.4 %; PLT - PLATELET COUNT 70 10^3/uL (130-450); RED BLOOD COUNT 4.44 10^6/uL (4.70-6.10); RED CELL DISTRIBUTION WIDTH 16.3 % (12.0-15.0); WHITE BLOOD COUNT 12.6 x10^3/uL (4.8-10.8)
[2019-04-01 15:24] LABS: CREATINE KINASE MB 3.3 ng/mL (0.6-6.3)
--- NOTE | 2019-04-01 15:27 | CT Report ---
Reason: increased back pain, prostate CA Procedure Date: 04/01/2019 Accession Number: [id number] / [id number] Procedure: CT - LUMBAR SPINE WO CPT Code: FULL RESULT: EXAM: CT LUMBAR SPINE WITHOUT CONTRAST. EXAM DATE: 04/01/2019 03:05 PM. CLINICAL HISTORY: Increased back pain, prostate cancer. COMPARISONS: BONE SCAN 10/18/2018 3:24 PM. ABDOMEN/PELVIS W/ 10/03/2018 5:20 AM. TECHNIQUE: Thin-section axial images were acquired of the lumbar spine from T12 to S1 without contrast. Post-processing: Coronal and sagittal reformats. Other: None. In accordance with CT protocol optimization, one or more of the following dose reduction techniques were utilized for this exam: automated exposure control, adjustment of mA and/or KV based on patient size, or use of iterative reconstructive technique. FINDINGS: Alignment: There is a 3 mm retrolisthesis at L3-L4. There is a 13 degree dextroscoliosis centered on L4-L5. Bones: Five dec-ter-zddoxxg lumbar vertebral bodies are present. There are numerous sclerotic foci throughout the lumbar spine involving the vertebral bodies and spinous processes, consistent with bony metastases. Most of these lesions were not visible on the prior CT from 10/03/2018. There are no visible fractures. There is a right L3-L4 hemilaminectomy. Disk Levels/Facets: T12-L1: Mild bilateral facet joint osteoarthritis. There is no appreciable canal or foraminal narrowing. L1-L2: There is severe facet joint osteoarthritis with a broad-based posterior disk bulge causing mild canal and foraminal narrowing. L2-L3: There is a broad-based posterior disk bulge with moderate facet joint osteoarthritis causing mild canal and foraminal narrowing. L3-L4: There are circumferential osteophytes with severe left facet joint osteoarthritis causing mild canal narrowing. There is mild left and minimal right foraminal narrowing. L4-L5: There is a broad-based posterior disk bulge with facet joint osteophytes and endplate osteophytes causing moderate canal narrowing. There is moderate bilateral foraminal narrowing. L5-S1: There is a right paracentral disk protrusion posteriorly displacing the right S1 nerve root in the lateral recess. There is mild canal narrowing. There is mild to moderate bilateral foraminal narrowing. Musculature: Normal. No fatty atrophy. Other: There is no appreciable retroperitoneal abnormality. The kidneys appear unremarkable. There is no appreciable epidural tumor extension, although the latter is difficult to exclude on a noncontrast CT. IMPRESSION: 1. There are numerous sclerotic metastases throughout the lumbar spine consistent with known metastatic prostatic carcinoma. 2. Prior right L3-L4 hemilaminectomy. 3. T12-L1: Mild bilateral facet osteoarthritis. There is no appreciable canal or foraminal narrowing. 4. L1-L2: There is described mild canal and foraminal narrowing. 5. L2-L3: There is mild canal and foraminal narrowing. 6. L3-L4: There is mild canal narrowing. There is mild left and minimal right foraminal narrowing. 7. L4-L5: There is moderate canal narrowing. There is moderate bilateral foraminal narrowing. 8. L5-S1: Right paracentral disk protrusion posteriorly displaces the right S1 nerve root in the lateral recess. Mild canal and bilateral foraminal narrowing. 9. Pre and postcontrast MRI can be obtained if there are any neurological symptoms, to exclude the possibility of epidural tumor infiltration. RADIA
[2019-04-01 15:29] LABS: VBG BASE EXCESS -4.4 mmol/L (-2 - +2); VBG PCO2 36.5 mmHg (41-51); VBG PH 7.365 (7.31-7.41); VBG PO2 31.5 mmHg (25-47); VBG TOTAL CO2 21.5 mmol/L (24-29)
[2019-04-01] MEDS ORDERED: KETOROLAC 30 MG/ML VIAL IVP STA (15:32)
--- NOTE | 2019-04-01 15:42 | CT Report ---
Reason: hypoxemia, active CA Procedure Date: 04/01/2019 Accession Number: [id number] / [id number] Procedure: CT - ANGIO CHEST W/WO CPT Code: FULL RESULT: EXAM: CT ANGIOGRAM CHEST EXAM DATE: 04/01/2019 03:09 PM. CLINICAL HISTORY: Hypoxemia, active CA. COMPARISON: ABDOMEN/PELVIS W/ 10/03/2018 5:20 AM. TECHNIQUE: Routine helical imaging was performed through the chest in the pulmonary arterial phase. IV Contrast: 80 cc Optiray 320. Reconstructions: Coronal 3-D MIP reconstructions.Sagittal and coronal. In accordance with CT protocol optimization, one or more of the following dose reduction techniques were utilized for this exam: automated exposure control, adjustment of mA and/or KV based on patient size, or use of iterative reconstructive technique. FINDINGS: Pulmonary Arteries: Diagnostic quality: Adequate through the segmental arteries. No evidence for acute or chronic pulmonary emboli. RV/LV is within normal limits. There is no interventricular septal bowing. There is no reflux of contrast material in the IVC. Lungs/Pleura: There is extensive centrilobular nodularity within the lungs. There are scattered larger nodules within the periphery of the mid and lower lungs. There is some juxtapleural density within the lower lobes, more pronounced on the right than on the left. There is no evidence of pleural effusion. There is no pneumothorax. Mediastinum: Heart size is within normal limits. There are no enlarged axillary, supraclavicular, mediastinal, or hilar lymph nodes. There are coronary artery calcifications. Thoracic Aorta: There is no evidence of aortic dissection or aneurysm. Upper Abdomen: There is right nephrolithiasis. Moderate distention of the gallbladder. The visualized portions of the upper abdominal organs demonstrate no acute abnormalities. Other: There is diffuse sclerotic metastatic disease. IMPRESSION: 1. No evidence of acute pulmonary embolism. 2. There is no aortic dissection or aneurysm. 3. There is diffuse nodularity within the lungs. There are multiple indistinct centrilobular nodules. There are scattered larger discrete nodules within the lower lungs. There is juxtapleural consolidation within the lower lobes, more pronounced on the right than on the left. Differential considerations include metastatic disease, endobronchial infection, and/or drug induced lung disease. 4. There is diffuse bony sclerotic metastatic disease. RADIA
[2019-04-01 15:51] LABS: PLATELET ESTIMATE, MANUAL DECREASED (<130,000) (NORMAL); PLATELET MORPHOLOGY 2+ GIANT PLATELETS (NORMAL)
--- NOTE | 2019-04-01 15:53 | CT Report ---
Reason: likely need for anticoagulation Procedure Date: 04/01/2019 Accession Number: [id number] / [id number] Procedure: CT - HEAD WO CPT Code: FULL RESULT: EXAM: CT HEAD EXAM DATE: 04/01/2019 02:56 PM. CLINICAL HISTORY: Likely need for anticoagulation. COMPARISON: FACIAL BONES W/ 07/20/2017 11:25 AM CHEST ANGIO 04/01/2019 3:06 PM BONE SCAN 10/18/2018 3:24 PM HEAD W/O 08/30/2016 6:21 AM. TECHNIQUE: Multiaxial CT images were obtained from the foramen magnum to the vertex. Reformats: Sagittal and coronal. IV contrast: None. In accordance with CT protocol optimization, one or more of the following dose reduction techniques were utilized for this exam: automated exposure control, adjustment of mA and/or KV based on patient size, or use of iterative reconstructive technique. FINDINGS: Parenchyma: No intraparenchymal hemorrhage. No evidence of mass, midline shift, or CT findings of or acute infarction. Probable old lacunar infarcts in the left basal ganglia and right thalamus. Chun-white differentiation is distinct. Extraaxial Spaces: Mild volume loss. No subdural or epidural hemorrhage identified. Ventricles: Normal in size and position. Sinuses and Orbits: Imaged paranasal sinuses, orbits, and mastoids show no significant abnormality. Bones: No evidence of fracture or calvarial defect. Prior left orbital fixation. There are multiple small sclerotic lesions in the calvarium. Other: None. IMPRESSION: 1. No acute intracranial abnormality. 2. Sclerotic calvarial lesions are in keeping with known metastatic disease. RADIA
[2019-04-01] MEDS ORDERED: VANCOMYCIN INJ 1.5 GM in SODIUM CHLORIDE 0.9% 500 ML IV STA (16:23)
[2019-04-01] MEDS ORDERED: CEFEPIME 2 GM in SODIUM CHLORIDE 0.9% MINIBAG 100 ML IV STA (16:23)
[2019-04-01] MEDS ORDERED: MORPHINE 2 MG/ML CARPUJECT IVP STA (16:51)
[2019-04-01 17:31] LABS: MUDS CUTOFF CONCENTRATIONS CUTOFF CONC BELOW:
[2019-04-01 17:43] LABS: BILIRUBIN,URINE NEGATIVE (NEGATIVE); GLUCOSE, URINE (UA) NEGATIVE (NEGATIVE); KETONES,URINE (UA) NEGATIVE (NEGATIVE); LEUKOCYTE ESTERASE, URINE NEGATIVE (NEGATIVE); NITRITE,URINE NEGATIVE (NEGATIVE); OCCULT BLOOD,URINE NEGATIVE (NEGATIVE); PH,URINE 5.5 PH (5.0-7.5); PROTEIN,URINE NEGATIVE (NEGATIVE); UROBILINOGEN,URINE 0.2 (NORMAL) E.U./dL (NORMAL)
[2019-04-01 17:49] LABS: CLARITY,URINE CLEAR (CLEAR)
[2019-04-01 17:50] LABS: AMPHETAMINE SCREEN,URINE NEGATIVE (NEGATIVE); BENZODIAZEPINES SCREEN, URINE NEGATIVE (NEGATIVE); COCAINE SCREEN URINE NEGATIVE (NEGATIVE); METHADONE SCREEN, URINE POSITIVE (NEGATIVE); METHAMPHETAMINES SCREEN, URINE NEGATIVE (NEGATIVE); OPIATE SCREEN, URINE POSITIVE (NEGATIVE); OXYCODONE SCREEN, URINE POSITIVE (NEGATIVE); PROPOXYPHENE SCREEN, URINE NEGATIVE (NEGATIVE); TRICYCLIC ANTIDEPRESSANT,URINE NEGATIVE (NEGATIVE)
[2019-04-01 17:52] VITALS: BP 136/81
== END 2019-04-01 17:52 | disposition short-term general hospital (02) ==
LOC: EDUNIT# → ED 12:42
DX: C79.51 Secondary malignant neoplasm of bone (principal); C61 Malignant neoplasm of prostate; R09.02 Hypoxemia; I95.9 Hypotension, unspecified; R74.8 Abnormal levels of other serum enzymes; R00.0 Tachycardia, unspecified; R91.8 Other nonspecific abnormal finding of lung field; M47.815 Spondylosis without myelopathy or radiculopathy, thoracolumbar region; I10 Essential (primary) hypertension
CPT/HCPCS: 36415; 70450; 71275; 72131; 80053; 81003; 82375; 82550; 82553; 82803; 83605; 83690; 84484; 85025; 85610; 87040; 93005; 96365; 96375; 96376; 99284; J1170; J3370; 80306; 81001; 87086

== ENCOUNTER 2019-04-01 17:53 | Outpatient (CLI) | payer MEDICARE | END 2019-04-01 17:54 | disposition short-term general hospital (02) | LOC: EMS 17:53 | PROVIDERS: ATTEND Surgery | DX: R09.02 Hypoxemia (principal); R10.9 Unspecified abdominal pain | CPT/HCPCS: A0425; A0433 ==